=== PATIENT | female | born 1950 | race Caucasian/White ===

== ENCOUNTER → 2016-08-03 | Outpatient (REF) | payer MEDICARE, OTHER ==
[~2016-08-03] MED LIST: /ONDA4TA PO; /SUCR1TA PO; AMPI50CA PO; DIPH2.5L PO; FLAG500T PO; FLUC150T PO; K-TA10TA PO; METO5TAB2 PO; MYLI40DR PO; SLOWTAB PO; ZEGE40CA3 PO; lotrimin; metamucil PO
== END ==
LOC: M SFHCLERA 14:54
PROVIDERS: ATTEND Nurse Practitioner Family
DX: R68.89 Other general symptoms and signs (principal)

== ENCOUNTER → 2016-10-09 | Outpatient (CLI) | payer MEDICARE, OTHER ==
[2016-10-09 13:49] LABS: BASO % 0.7 % (0.0-1.0); EOS # 0.1 K/mm3 (0.0-0.50); EOS % 2.6 % (0.0-3.0); LYMPH # 1.2 K/mm3 (1.5-4.5); LYMPH % 26.9 % (24.0-44.0); MEAN CORPUSCULAR HEMOGLOBIN 29.6 pg (27.0-33.0); MEAN CORPUSCULAR HGB CONC 32.2 g/dl (32.0-36.5); MONO # 0.2 K/mm3 (0.0-0.8); MONO % 5.2 % (0.0-5.0); NEUTROPHILS # 2.7 K/mm3 (1.8-7.7); NEUTROPHILS % 62.9 % (36.0-66.0); RED CELL DISTRIBUTION WIDTH 13.1 % (11.5-14.5); WHITE BLOOD COUNT 4.3 K/mm3 (4.0-10.0)
[2016-10-09 14:22] LABS: ALBUMIN 3.6 GM/DL (3.2-5.2); ALKALINE PHOSPHATASE 75 U/L (45-117); ALT/SGPT 12 U/L (12-78); ANION GAP 8 MEQ/L (8-16); AST/SGOT 17 U/L (15-37); BILIRUBIN,TOTAL 0.4 MG/DL (0.2-1.0); BLOOD UREA NITROGEN 18 MG/DL (7-18); CALCIUM LEVEL 8.9 MG/DL (8.8-10.2); CARBON DIOXIDE LEVEL 28 MEQ/L (21-32); CHLORIDE LEVEL 105 MEQ/L (98-107); CREATININE FOR GFR 0.56 MG/DL (0.55-1.02); FERRITIN 69 NG/ML (8-252); GLOMERULAR FILTRATION RATE > 60.0 (>45); GLUCOSE, FASTING 89 MG/DL (80-110); PERCENT SATURATION 36.2 % (13.2-37.4); POTASSIUM SERUM 4.1 MEQ/L (3.5-5.1); SODIUM LEVEL 141 MEQ/L (136-145); TOTAL IRON BINDING CAPACITY 318 UG/DL (250-450); TOTAL PROTEIN 6.6 GM/DL (6.4-8.2)
[2016-10-09 14:40] LABS: VITAMIN B12 LEVEL 973 PG/ML (247-911)
[2016-10-10 10:12] LABS: CARCINOEMBRYONIC ANTIGEN < 0.5 NG/ML (<2.5)
== END ==
LOC: M LAB 12:05
PROVIDERS: ATTEND Internal Medicine
DX: C20 Malignant neoplasm of rectum (principal)

== ENCOUNTER → 2017-06-21 | Outpatient (REF) | payer MEDICARE, OTHER ==
[2017-06-21 19:11] LABS: BACTERIA, URINE SMALL AMOUNT; HYALINE CAST, URINE NONE SEEN /lpf (0-1); SQUAMOUS EPITHELIAL CELL URINE MOD AMOUNT /hpf (SMALL AMT)
[2017-06-21 19:12] LABS: CALCIUM OXALATE CRYSTALS,URINE SMALL AMOUNT /hpf; MICROSCOPIC EXAM PERFORMED; MUCUS, URINE SMALL AMOUNT (NEGATIVE)
== END ==
LOC: M SMT 17:44
DX: N39.0 Urinary tract infection, site not specified (principal)
CPT/HCPCS: 81015

== ENCOUNTER → 2017-07-02 | Outpatient (REF) | payer MEDICARE, OTHER | LOC: M SMT 16:22 | DX: N39.0 Urinary tract infection, site not specified (principal) | CPT/HCPCS: 87086 ==

== ENCOUNTER → 2017-07-17 | Outpatient (REF) | payer MEDICARE, OTHER | LOC: M LABSMT 09:54 | DX: N39.0 Urinary tract infection, site not specified (principal) | CPT/HCPCS: 87088; 87186 ==

== ENCOUNTER → 2018-12-02 | Outpatient (CLI) | payer MEDICARE, OTHER ==
[~2018-12-02] MED LIST changes: -/ONDA4TA PO; -/SUCR1TA PO; +AMPI500C9 PO; -AMPI50CA PO; +ONDA-1 PO; +SUCR1TAB56 PO
[2018-12-02 12:14] LABS: BASO % 0.6 % (0.0-1.0); EOS # 0.1 10^3/uL (0.0-0.50); HEMATOCRIT 36.1 % (36.0-47.0); LYMPH # 1.5 10^3/uL (1.5-4.5); LYMPH % 30.1 % (24.0-44.0); MEAN CORPUSCULAR HEMOGLOBIN 30.6 pg (27.0-33.0); MEAN CORPUSCULAR HGB CONC 33.2 g/dl (32.0-36.5); MEAN CORPUSCULAR VOLUME 92.1 fl (80.0-96.0); MONO # 0.5 10^3/uL (0.0-0.8); MONO % 9.1 % (0.0-5.0); NEUTROPHILS # 2.9 10^3/uL (1.8-7.7); PLATELET COUNT, AUTOMATED 228 10^3/uL (150-450); RED BLOOD COUNT 3.92 10^6/uL (4.00-5.40); WHITE BLOOD COUNT 4.9 10^3/uL (4.0-10.0)
[2018-12-02 12:40] LABS: ALBUMIN 3.7 GM/DL (3.2-5.2); ALT/SGPT 9 U/L (12-78); BILIRUBIN,TOTAL 0.3 MG/DL (0.2-1.0); BLOOD UREA NITROGEN 16 MG/DL (7-18); CALCIUM LEVEL 8.9 MG/DL (8.8-10.2); CARBON DIOXIDE LEVEL 29 MEQ/L (21-32); CHLORIDE LEVEL 107 MEQ/L (98-107); CREATININE FOR GFR 0.59 MG/DL (0.55-1.30); FERRITIN 23 NG/ML (8-252); GLOMERULAR FILTRATION RATE > 60.0 (>39); GLUCOSE, FASTING 94 MG/DL (70-100); IRON (FE) 69 UG/DL (50-170); PERCENT SATURATION 22.8 % (13.2-45.0); POTASSIUM SERUM 3.8 MEQ/L (3.5-5.1); SODIUM LEVEL 142 MEQ/L (136-145); TOTAL IRON BINDING CAPACITY 303 UG/DL (250-450); TOTAL PROTEIN 6.7 GM/DL (6.4-8.2)
== END ==
LOC: M LAB 11:45
PROVIDERS: ATTEND Internal Medicine
DX: C20 Malignant neoplasm of rectum (principal); D50.9 Iron deficiency anemia, unspecified

== ENCOUNTER → 2019-06-12 | Outpatient (CLI) | payer MEDICARE, OTHER ==
[2019-06-12 16:00] LABS: BASO # 0.1 10^3/uL (0.0-0.2); BASO % 1.2 % (0.0-1.0); EOS # 0.2 10^3/uL (0.0-0.5); EOS % 2.9 % (0.0-3.0); HEMATOCRIT 37.8 % (36.0-47.0); HEMOGLOBIN 11.8 g/dl (12.0-15.5); LYMPH # 1.6 10^3/uL (1.5-5.0); LYMPH % 30.7 % (24.0-44.0); MEAN CORPUSCULAR HEMOGLOBIN 28.9 pg (27.0-33.0); MEAN CORPUSCULAR HGB CONC 31.2 g/dl (32.0-36.5); MEAN CORPUSCULAR VOLUME 92.4 fl (80.0-96.0); MONO # 0.5 10^3/uL (0.0-0.8); MONO % 9.2 % (0.0-5.0); NEUTROPHILS # 2.9 10^3/uL (1.5-8.5); NEUTROPHILS % 55.8 % (36.0-66.0); PLATELET COUNT, AUTOMATED 242 10^3/uL (150-450); RED BLOOD COUNT 4.09 10^6/uL (4.00-5.40); WHITE BLOOD COUNT 5.1 10^3/uL (4.0-10.0)
[2019-06-12 16:28] LABS: ALBUMIN 3.6 GM/DL (3.2-5.2); ALT/SGPT 9 U/L (12-78); BILIRUBIN,TOTAL 0.3 MG/DL (0.2-1.0); BLOOD UREA NITROGEN 17 MG/DL (7-18); CALCIUM LEVEL 9.2 MG/DL (8.8-10.2); CARBON DIOXIDE LEVEL 29 MEQ/L (21-32); CHLORIDE LEVEL 107 MEQ/L (98-107); CREATININE FOR GFR 0.65 MG/DL (0.55-1.30); FERRITIN 7 NG/ML (8-252); GLOMERULAR FILTRATION RATE > 60.0 (>39); GLUCOSE, FASTING 79 MG/DL (70-100); SODIUM LEVEL 142 MEQ/L (136-145); TOTAL PROTEIN 6.9 GM/DL (6.4-8.2)
== END ==
LOC: M LAB 15:23
PROVIDERS: ATTEND Internal Medicine
DX: C20 Malignant neoplasm of rectum (principal); D50.9 Iron deficiency anemia, unspecified

== ENCOUNTER → 2020-02-04 | Outpatient (CLI) | payer MEDICARE, OTHER | LOC: M LABSMTC 09:34 | PROVIDERS: ATTEND Orthopaedic Surgery | DX: Z03.818 Encounter for observation for suspected exposure to other biological agents ruled out (principal); Z11.59 Encounter for screening for other viral diseases | CPT/HCPCS: C9803; U0003 ==

== ENCOUNTER 2020-07-13 13:07 | Emergency (ER) | payer MEDICARE, OTHER ==
[~2020-07-13] VITALS: Ht 165.1 cm; Wt 76.8 kg
[2020-07-13] MEDS ORDERED: FAMO1TAB11 (13:25)
[2020-07-13] MEDS ORDERED: SUCR1TAB56 (13:25)
[2020-07-13] MEDS ORDERED: GI COCKTAIL 50ML BTL(HYOSCYAMINE/MAALOX/LIDOCAINE VISCOUS)(1:3:1) PO ONE (13:45)
[2020-07-13] MEDS ORDERED: PANTOPRAZOLE 40MG VIAL (C9113 PER 1) IV ONE (13:45)
[2020-07-13 13:46] LABS: BASO % 0.4 % (0.0-1.0); EOS % 0.6 % (0.0-3.0); HEMATOCRIT 40.6 % (36.0-47.0); HEMOGLOBIN 13.5 g/dl (12.0-15.5); LYMPH # 0.9 10^3/uL (1.5-5.0); LYMPH % 13.2 % (24.0-44.0); MEAN CORPUSCULAR HEMOGLOBIN 29.9 pg (27.0-33.0); MEAN CORPUSCULAR HGB CONC 33.3 g/dl (32.0-36.5); MEAN CORPUSCULAR VOLUME 89.8 fl (80.0-96.0); MONO # 0.5 10^3/uL (0.0-0.8); MONO % 6.7 % (0.0-5.0); NEUTROPHILS # 5.6 10^3/uL (1.5-8.5); NEUTROPHILS % 78.7 % (36.0-66.0); PLATELET COUNT, AUTOMATED 234 10^3/uL (150-450); RED BLOOD COUNT 4.52 10^6/uL (4.00-5.40); WHITE BLOOD COUNT 7.1 10^3/uL (4.0-10.0)
--- NOTE | 2020-07-13 13:46 | REP ---
INDICATION: CHEST PAIN COMPARISON: 10/12/2011 TECHNIQUE: Portable AP view of the chest FINDINGS: The mediastinum and cardiac silhouette are stable and within normal limits for portable technique. The lung nicolas are clear without acute consolidation, effusion, or pneumothorax. Skeletal structures are intact. IMPRESSION: No acute cardiopulmonary process appreciated. <Electronically signed by Pierre Zuñiga > 07/13/20 [id number]
[2020-07-13 14:20] LABS: ALBUMIN 3.9 GM/DL (3.2-5.2); ALT/SGPT 11 U/L (12-78); BILIRUBIN,DIRECT 0.2 MG/DL (0.0-0.2); BILIRUBIN,TOTAL 0.4 MG/DL (0.2-1.0); BLOOD UREA NITROGEN 17 MG/DL (7-18); CALCIUM LEVEL 9.3 MG/DL (8.8-10.2); CARBON DIOXIDE LEVEL 28 MEQ/L (21-32); CHLORIDE LEVEL 102 MEQ/L (98-107); CK-MB VALUE MASS < 1.0 NG/ML (<3.6); CPK CREATINE PHOSPHOKINASE 36 U/L (26-192); CREATININE FOR GFR 0.53 MG/DL (0.55-1.30); GLOMERULAR FILTRATION RATE > 60.0 (>39); GLUCOSE, FASTING 91 MG/DL (70-100); LIPASE 84 U/L (73-393); MB/CK RELATIVE INDEX 2.78 (< OR =4); SODIUM LEVEL 138 MEQ/L (136-145); TROPONIN I < 0.02 NG/ML (< 0.10)
[2020-07-13 15:00] VITALS: BP 121/66
[2020-07-13] MEDS ORDERED: MYLA1SUS PO (15:10)
[2020-07-13] MEDS ORDERED: LIDO2SOL17 PO (15:10)
--- NOTE | 2020-07-13 16:32 | ECGEPIP ---
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
== END 2020-07-13 15:25 | disposition home or self-care (01) ==
LOC: M ED 13:07
DX: K29.70 Gastritis, unspecified, without bleeding (principal); K44.9 Diaphragmatic hernia without obstruction or gangrene; Z98.84 Bariatric surgery status; Z79.899 Other long term (current) drug therapy; Z88.1 Allergy status to other antibiotic agents; Z88.2 Allergy status to sulfonamides
CPT/HCPCS: 71045; 80048; 80076; 82550; 82553; 83690; 84443; 84484; 85025; 93005; 96374; 99284; C9113

== ENCOUNTER → 2020-07-31 | Outpatient (CLI) | payer MEDICARE, OTHER ==
[~2020-07-31] MED LIST changes: +B-122500 PO; +FAMO1TAB11 PO; +LIDO2SOL17 PO; +LIDO2SOL9 PO; +MYLA1SUS PO
== END ==
LOC: M LABSMTC 09:43
PROVIDERS: ATTEND Anesthesiology
DX: Z01.812 Encounter for preprocedural laboratory examination (principal); Z20.822 Contact with and (suspected) exposure to COVID-19

== ENCOUNTER 2020-08-05 10:31 | Day surgery (SDC) | payer MEDICARE, OTHER ==
[~2020-08-05] VITALS: Ht 165.1 cm; Wt 73.9 kg
[~2020-08-05 10:31] MED LIST changes: +NS 1,000 ML IV ONE
--- OUTSIDE RECORDS SUMMARY | 2020-08-05 10:38 | CCD | Continuity of Care Document ---
Author Author Elo WOOD [facility] Organization Unknown Address [address] [facility] [place] [address] Phone [phone] Problems Active Problems Provider Date Myalgia & Myositis Unspecified Jorge Wood RPA Onset: 12/30/2007 Irritable bowel syndrome Jorge Wood RPA Onset: 12/29 Gastroesophageal reflux disease Jorge Wood RPA Onset : 03/16/2008 Vitamin D deficiency Jorge Wood RPA Onset: Bariatric Surgery Status Jroge Wood RPA Onset: 03/28 Anemia Jorge Wood RPA Onset: 12/28/2010 Note: Dr. Banuelos Thrombocytopenic disorder Jorge Wood RPA Onset: 12/10 Note: Dr. Banuelos. Adenocarcinoma of rectum Jorge Wood RPA Onset: 08/26 Note: Dx via ultrasound and flexible sig moidoscopy 08/05/15 Dr. Gomez Heart murmur Jorge Wood RPA Onset: 11/06/2018 Social History Type Date Description Comments Sex Unknown Tobacco Use Start: Unknown Former cigarette smo ker: smoked for 20 years, quit 1984. ETOH Use Alcohol use: Socially. Tobacco Use Start: Unknown End: Unknown Patient is a former smoker Allergies, Adverse Reactions, Alerts Active Allergies Reaction Severity Comments Date Erythromycin 03/16/2008 Sulfa Drugs Hives 06/22/2008 Doxycycline 03/14/2017 Medications Active Medications SIG Qnty Indications Ordering Provide r Date Famotidine 20mg Tablets 1 by mouth bid 60tabs Brayan Farr D.O., FAAFP 04/19/2020 Centrum Silver 50+Women 50+Women T ablets 1 Daily Brayan Farr D.O., FAAFP Shingrix 50mcg Suspension Rec injection 1units [facility] 08/21/2017 Prevnar 13 Suspension as directed .500ml Brayan Farr D.O., FAAFP 05/08/2017 Omeprazole-Sodium Bicarbonate 40-1100mg Capsules 1 by mouth every day Needs Appointment 30caps Brayan Farr D.O., FAAFP 02/05/2017 Vitamin D 1000Unit Tablets 1 po qd OTC Brayan Farr D.O., FAAFP 10/14/2013 Vitamin B-12 100mcg Tablets 1 by mouth every day otc Unknown Biotin 1mg Capsules 1 po tavia y Unknown Methenamine Hippurate 1gm Tablets 1 Daily Unknown Docusate Sodium 100mg Capsules 1 by mouth daily for constipation Unknown 0 History Medications Diflucan 150mg Tablets one pill by mouth today followed by 1 in 1 week. 2tabs Brayan Farr D.O., [facility] 05/21/2020 - 06/04/2020 Medications Administered in Office Medication SIG Qnty Indications Ordering Provider Date Injection (SC)/(Im) Injection Jorge Wood RPA 03/21/2013 Immunizations CPT Code Status Date Vaccine Lot # 92262 Given 04/05/2020 Influenza Virus Vaccine, Quadrivalent, Slit Virus, Im Use 3Y & Up [id number] 49341 Given 04/25/2019 Influenza Virus Vaccine, Quadrivalent, Slit Virus, Im Use 3Y & Up [id number] 20674 Given 06/19/2018 Influenza Virus Vaccine, Quadrivalent, Slit Virus, Im Use 3Y & Up [id number] 02534 Given 05/08/2017 Influenza Virus Vaccine, Quadrivalent, Slit Virus, Im Use 3Y & Up [id number] 34852 Given 03/21/2016 Influenza Virus Vaccine, Quadrivalent, Slit Virus, Im Use 3Y & Up [id number] 06161 Given 03/31/2015 Influenza Vaccin e (Fluzone) 3Yrs Of Age Or Older Medicare Plans [id number] 12764 Given 04/08/2014 Influenza Vaccin e (Fluzone) 3Yrs Of Age Or Older Medicare Plans [id number] 81678 Given 03/21/2013 Influenza Virus Vac. Split Virus Individuals 3 Years And Above [id number] Vital Signs Date Vital Result Comment 05/21/2020 3:18pm BP Systolic 120 mmHg BP Diastolic 82 mmHg Body Temperature 98.5 F Heart Rate 76 /min Respiratory Rate 16 /min Height 66 inches 5'6" Weight 174.00 lb [place] Body Weight 130 lb BMI (Body Mass Index) 28.1 kg/m2 O2 % BldC Oximetry 97 % 04/19/2020 8:58am BP Systolic 102 mmHg BP Diastolic 62 mmHg Body Temperature 98.7 F Heart Rate 85 /min Respiratory Rate 16 /min Height 66 inches 5'6" Weight 180.00 lb [place] Body Weight 130 lb BMI (Body Mass Index) 29.0 kg/m2 O2 % BldC Oximetry 98 % Results Test Acquired Date Facility Test Result H/L Range Note CBC With Differential 07/13/2020 [facility] ([facility]) [phone] White Blood Count 7.1 10 Normal 4.0-10.0 Red Blood Count 4.52 10 Normal 4.00-5.40 Hemoglobin 13.5 g/dL Normal 12.0-15.5 Hematocrit 40.6 % Normal 36.0-47.0 Mean Corpuscular Volume 89.8 fl Normal 80.0-96.0 Mean Corpuscular Hemoglobin 29.9 pg Normal 27.0-33.0 Mean Corpuscular HGB Conc 33.3 g/dL Normal 32.0-36.5 Red Cell Distribution Width 14.0 % Normal 11.5-14.5 Platelet Count, Automated 234 10 Normal 150-450 Neutrophils % 78.7 % High 36.0-66.0 Lymph % 13.2 % Low 24.0-44.0 Kleberg % 6.7 % High 0.0-5.0 Eos % 0.6 % Normal 0.0-3.0 Baso % 0.4 % Normal 0.0-1.0 Immature Granulocyte % 0.4 % Normal 0-3.0 Nucleated Red Blood Cell % 0.0 % Normal 0-0 Neutrophils # 5.6 10 Normal 1.5-8.5 Lymph # 0.9 10 Low 1.5-5.0 Kleberg # 0.5 10 Normal 0.0-0.8 Eos # 0.0 10 Normal 0.0-0.5 Baso # 0.0 10 Normal 0.0-0.2 Cardiac Marker Panel 07/13/2020 [facility] ( Interface) [phone] CPK Creatine Phosphokinase 36 U/L Normal 26-19 2 CK-MB Value Mass < 1.0 NG/ML Normal <3.6 MB/CK Relative Index 2.78 Normal < Or =4 1 Troponin I < 0.02 NG/ML Normal < 0.10 2 Liver Profile 07/13/2020 [facility] (I nterface) [phone] Ast/Sgot 15 U/L Normal 7-37 Alt/SGPT 11 U/L Low 12-78 Alkaline Phosphatase 76 U/L Normal 45-117 Bilirubin,Total 0.4 mg/dL Normal 0.2-1.0 Bilirubin,Direct 0.2 mg/dL Normal 0.0-0.2 Total Protein 7.0 GM/DL Normal 6.4-8.2 Albumin 3.9 GM/DL Normal 3.2-5.2 Albumin/Globulin Ratio 1.3 Normal 1.2-2.2 Basic Metabolic Profile 07/13/2020 [facility] (Interface) [phone] Glucose, Fasting 91 mg/dL Normal 70-100 Blood Urea Nitrogen 17 mg/dL Normal 7-18 Creatinine For GFR 0.53 mg/dL Low 0.55-1.30 Glomerular Filtration Rate > 60.0 Normal >39 3 Sodium Level 138 mEq/L Normal 136-145 Potassium Serum 4.0 mEq/L Normal 3.5-5.1 Chloride Level 102 mEq/L Normal 98-107 Carbon Dioxide Level 28 mEq/L Normal 21-32 Anion Gap 8 mEq/L Normal 8-16 Calcium Level 9.3 mg/dL Normal 8.8-10.2 Laboratory test finding 07/13/2020 [facility] (Interface) [phone] Lipase 84 U/L Normal 73-393 Thyroid Stimulating Hormone 1.060 uIU/ML Normal 0.358-3.740 U/A DIP FPA 05/21/2020 [facility] Color Urine YELLOW Yellow Appearance CLEAR Clear Specific [place] 1.030 1.00-1.03 PH Urine 5.0 5.0-8.0 Glucose Urine NEG Negative Bilirubin Urine 1+ High Negative Ketones 1+ High Negative Blood Urine 1+ High Negative Protein Urine .2 High Negative Urobilinogen 2.0 EU/dl High 0.2-1.0 Nitrite NEG Negative Leukocytes NEG Negative Urine Culture, Routine 05/21/2020 [facility] [place] Urine Culture, Routine Final report Abnormal 4, 5 Result 1 Escherichia coli Abnormal 6 Antimicrobial Susceptibility See Comment: 7 CBC W/Diff 04/21/[address] [phone] WBC 5.5 K/mm3 4.0-10.0 RBC 4.28 M/mm3 4.00-5.50 HGB 12.6 gm/dL 12.0-16.0 HCT 39.0 % 36.0-48.8 MCV 91.1 fl 80-96 MCH 29.4 pg 27.0-31.0 MCHC 32.3 g/dL 32.0-36.0 RDW 12.8 % 10.0-14.5 PLT 286 K/mm3 172-450 MPV 9.3 fl 9.0-13.0 GR% 70.7 % 50-80.0 Ig% 0.2 % 0.0-0.2 Ly% 18.5 % Low 25.0-50.0 Mo% 7.3 % 2.0-10.0 Eo% 2.6 % 0-5.0 Ba% 0.7 % 0.0-2.0 GR# 3.9 K/mm3 2.0-8.00 Ig# 0.0 K/mm3 0.0-0.2 Ly# 1.0 K/mm3 1.0-5.0 Mo# 0.4 K/mm3 0.10-1.20 Eo# 0.1 K/mm3 0.0-0.5 Ba# 0.0 K/mm3 0.0-0.2 Complete Metabolic Profile 04/21/[address] [phone] - Glu 90 mg/dL 74-106 BUN 13 mg/dL 7-18 Cre 0.7 mg/dL 0.6-1.0 Na 143 mmol/L 136-145 K 4.4 mmol/L 3.5-5.1 CL 102 mmol/L 98-107 Co2 29 mmol/L 21-32 CA 9.6 mg/dL 8.5-10.1 Gap 12.0 mmol/L 5-12 GFR 82 mL/min 8 Ast 14 U/L Low 15-37 Alt 7 U/L Low 12-78 Alk 84 U/L 46-116 Tbili 0.4 mg/dL 0.2-1.0 TP 7.0 g/dL 6.4-8.2 Alb 3.6 gm/dL 3.4-5.0 Laboratory test finding 04/21/2020 [place] [phone] (315)- - Iron 75 g/dL 50-170 Tibc 236 g/dL Low 250-450 Vitamin D, 25-Hydroxy 25.5 ng/mL Low 30.0-100.0 9 Vitamin B12 617 pg/mL 232-1245 10 Ferritin 144 ng/mL 8-252 Cea 1.5 ng/mL 0.0-4.7 11 Laboratory test finding 04/19/2020 [facility] [place] Lipase 32 U/L 14-85 Amylase 54 U/L 31-110 CBC 04/19/2020 [facility]/Inhouse WBC 7.5 10E3/uL 4.1 - 10.9 12 RBC 4.30 10E6/uL 4.20 - 6.30 HGB 13.0 g/dL 12.0 - 18.0 HCT 39.5 % 37.0 - 51.0 MCV 91.9 fL 80.0 - 97.0 MCH 30.2 pg 26.0 - 32.0 MCHC 32.9 g/dL 31.0 - 36.0 PLT 315 10E3/uL 140 - 440 RDW-CV 13.2 % 11.5 - 14.5 Lym% 15.8 % 10.0 - 58.5 Neut% 75.6 % 37.0 - 92.0 MXD% 8.6 % 0.1 - 24.0 Lym# 1.2 10E3/uL 0.6 - 4.1 Neut# 5.7 % 2.0 - 7.8 MXD# 0.6 10E3/uL 0.0 - 1.8 MPV 9.5 fL 9.0 - 13.0 CMP 04/19/2020 [facility]Inhouse Glu 86 mg/dL 70 - 110 BUN 14 mg/dL 8 - 23 Creat 0.6 mg/dL 0.5 - 1.0 BUN/Creatinine Ratio 23.4 CALC Na 139 mmol/L 136 - 145 K 4.4 mmol/L 3.5 - 5.1 CL 100.0 mmol/L 98.0 - 107.0 Co2 23.4 mmol/L 22.0 - 29.0 CA 9.8 mg/dL 8.6 - 10.2 TP 6.1 g/dL Low 6.6 - 8.7 Alb 4.0 g/dL 3.4 - 4.8 A/G Ratio 1.9 CALC Globulin 2.1 CALC Alp 86.5 U/L 35 - 129 Alt (SGPT) 2 U/L 0 - 41 Ast (Sgot) 11 U/L 0 - 40 Tbili 0.25 mg/dL 0.0 - 1.2 Osmolality-Calculated 277.0 CALC Anion Gap 20 mmol/L eGFR 106 # Calc 13 eGFR Non-Afr. [place]ian 92 # Calc 14 Coronavirus 2019 Nasopharygeal 02/04/2020 [facility] ([facility]) [phone] Coronavirus 2019 Nasopharygeal This test was de <SEE N OTE> 15 CBC 02/02/2020 [facility]Inhouse WBC 5.5 10E3/uL 4.1 - 10.9 RBC 4.36 10E6/uL 4.20 - 6.30 HGB 13.5 g/dL 12.0 - 18.0 HCT 39.8 % 37.0 - 51.0 MCV 91.3 fL 80.0 - 97.0 MCH 31.0 pg 26.0 - 32.0 MCHC 33.9 g/dL 31.0 - 36.0 PLT 244 10E3/uL 140 - 440 RDW-CV 12.9 % 11.5 - 14.5 Lym% 22.2 % 10.0 - 58.5 Neut% 67.6 % 37.0 - 92.0 MXD% 10.2 % 0.1 - 24.0 Lym# 1.2 10E3/uL 0.6 - 4.1 Neut# 3.7 % 2.0 - 7.8 MXD# 0.6 10E3/uL 0.0 - 1.8 MPV 10.8 fL 9.0 - 13.0 CMP 02/02/2020 [facility]house Glu 146 mg/dL High 70 - 110 BUN 17 mg/dL 8 - 23 Creat 0.7 mg/dL 0.5 - 1.0 BUN/Creatinine Ratio 24.5 Calc Na 146 mmol/L High 136 - 145 K 3.6 mmol/L 3.5 - 5.1 CL 106.1 mmol/L 98.0 - 107.0 Co2 23.3 mmol/L 22.0 - 29.0 CA 9.6 mg/dL 8.6 - 10.2 TP 6.4 g/dL Low 6.6 - 8.7 Alb 4.5 g/dL 3.4 - 4.8 A/G Ratio 2.3 Calc Globulin 1.9 Calc Alp 80.8 U/L 35 - 129 Alt (SGPT) 4 U/L 0 - 41 Ast (Sgot) 15 U/L 0 - 40 Tbili 0.26 mg/dL 0.0 - 1.2 Osmolality-Calculated 294.0 Calc Anion Gap 20 mmol/L eGFR 101 # Calc 16 eGFR Non-Afr. [place] 87 # Calc 17 1 DIAGNOSIS CRITERIA MMB ng/ml Relative Index (RI) NON-AMI < or = 5 N/A LUIS ZONE > 5 < or = 4 AMI > 5 > 4 2 Troponin I Reference Interva l for [employer] LOCI: 99th Percentile= 0.00-0.045 ng/ml Risk Stratification: <= 0.10 ng/ml Decreased Risk for Adverse Clinical Events. 0.10-1.50 ng/ml Increased Risk for Adv erse Clinical Events. Evaluation of additional criterion and/or repeat testing in 2-6 hours is suggested to rule out myocardial damage. >= 1.50 ng/ml Indicative of Myocardial Injury. 3 Units are mL/min/1.73 m2 Chronic Kidney Disease Staging per NKF: Stage I & II GFR >=60 Normal to Mildly Decreased Stage III GFR 30-59 Moderately Decreased Stage IV GFR 15-29 Severely Decreased Stage V GFR <15 Very Little GFR Left ESRD GFR <15 on LIFT MECHANIC 4 SRC:URINE 5 Source of Specimen: URINE 6 Escherichia coli Source of Specimen: URINE 10,000-25,000 colony forming units per m L Cefazolin <=4 ug/mL Cefazolin with an JEREMIAH <=16 predicts susceptibility to the oral agents cefaclor, cefdinir, cefpodoxime, cefprozil, cefuroxime, cephalexin, and loracarbef when used for therapy of uncomplicated urinary tract infections due to E. coli, Klebsiella pneumoniae, and Proteus mirabilis. 7 Source of Specimen: URINE S = Susceptible; I = Intermediate; R = Resistant P = Positive; N = Negative MICS are expressed in micrograms per mL Antibiotic RSLT#1 RSLT#2 RSLT#3 RSLT#4 Amoxicillin/Clavulanic Acid S Ampicillin S Cefepime S Ceftriaxone S Cefuroxime S Ciprofloxacin S Ertapenem S Gentamicin S Imipenem S Levofloxacin S Meropenem S Nitrofurantoin S Piperacillin/Tazobactam S Tetracycline R Tobramycin S Trimethoprim/Sulfa S 8 GFR IS CALCULATED IN mL/min/ 1.73m2 NORMAL FUNCTION: >90 MILDLY DECREASED: 60-89 MILDY TO MODERATELY DECREASED: 45-59 MODERATELY TO SEVERELY DECREASED: 30-44 SEVERELY DECREASED: 15-29 RENAL FAILURE: <15 9 Vitamin D deficiency has bee n defined by the [place] of [employer] and an Endocrine Society practice guideline as a level of serum 25-OH vitamin D less than 20 ng/mL (1,2). The Endocrine Society went on to further define vitamin D insufficiency as a level between 21 and 29 ng/mL (2). 1. IOM ([place] of [employer]). 2010. Di etary reference intakes for calcium and D. [place]: The National Academies Press. 2. Hanna MF, [place], Joao norris PISANO, et al. Evaluation, treatment, and prevention of vitamin D deficiency: an Endocrine Society clinical practice guideline. JCEM. 2010; 96(7):1911-30. 10 Performed at: [facility] [employer] [id number] Cash Management Coordinator: Lelo Mtz MD, Phone: [phone] 11 Nonsmokers <3.9 Smokers <5.6 [employer] Electrochemiluminescence Immunoassay (ECLIA) Values obtained with different assay methods or kits cannot be used interchangeably. Results cannot be interpreted as absolute evidence of the presence or absence of malignant disease. Performed at: [facility] [employer] [id number] Cash Management Coordinator: Lelo Mtz MD, Phone: [phone] 12 NORMAL RANGES Age WBC RBC HGB HCT MCV PLT Adult M 4.1-10.9 4.20-6.30 12.0-18.0 37.0-51.0 80-97 140-440 Adult F 4.1-10.9 4.04-5.48 12.0-18.0 37.0-51.0 80-97 140-440 0 -1 Yr 5.0-20.0 3.9-5.9 15-18 MV: 44 MV: 91 MV: 277 2-9 Yr. 6.0-17.0 3.8-5.4 11-13 MV: 37 MV: 78 MV: 300 10 Yrs. 5.0-13.0 3.8-5.4 12-15 MV: 39 MV: 80 MV: 250 NOTE: * FOR ADULT BLACK MALES AND FEMALES, NORMAL WBC IS 2.9-7.7 K/ML * FOR ADULT BLACK MALES AND FEMALES, NORMAL RBC,HGB, AND HCT IS 5% LESS SOURCE FOR DATA: [employer] 1800 OPERATION MANUAL( AUTOMATED BLOOD COUNTS AND DIFF.) APPENDIX B-3 CHRONIC KIDNEY DISEASE STAGING PER NKF: MALE GFR INTERPRETATION: 20-49 YRS: >60 mL/min Normal 50-59 YRS: >56 mL/min Normal 60-69 YRS: >49 mL/min Normal 70-79 YRS: >42 mL/min Normal 80 and above >35 mL/min Normal FEMALE GRF INTERPRETATION: 20-39 YRS: >60 mL/min Normal 40-49 YRS: >58 mL/min Normal 50-59 YRS: >51 mL/min Normal 60-69 YRS: >45 mL/min Normal 70-79 YRS: >39 mL/min Normal 80 and above >32 mL/min Normal 13 CKD-EPI 14 CKD-EPI 15 This test was developed and its performance characteristics determined by [employer]. This test has not been FDA cleared or approved. This test has been authorized by FDA under an Emergency Use Authorization (EUA). This test is only authorized for the duration of time the declaration that circumstances exist justifying the authorization of the emergency use of in vitro diagnostic tests for detection of SARS-CoV-2 virus and/or diagnosis of COVID-19 infection under section 564(b)(1) of the Act, 21 U.S.C. 360bbb-3(b)(1), unless the authorization is terminated or revoked sooner. When diagnostic testing is negative, the possibility of a false negative result should be considered in the context of a patient's recent exposures and the presence of clinical signs and symptoms consistent with COVID-19. An individual without symptoms of COVID-19 and who is not shedding SARS-CoV-2 virus would expect to have a negative (not detected) result in this assay. Performed at: [address] [id number] Cash Management Coordinator: Lelo Mtz MD, Phone: [phone] Not Detected 16 CKD-EPI 17 CKD-EPI Procedures Date Code Description Status 02/02/2020 34618 Electrocardiogram Complete Compl eted Medical Devices Description No Information Available Encounters Type Date Location Provider Dx Diagnosis Office Visit 05/21/2020 3:30p [facility] Jorge Wood, RP A N39.0 Urinary tract infection, site not specified R14.3 Flatulence R10.13 Epigastric pain R11.0 Nausea Office Visit 04/19/2020 8:45a [facility] Jorge Wood, RP A R53.83 Other fatigue R10.9 Unspecified abdominal pain R11.2 Nausea with vomiting, unspec ified R35.0 Frequency of micturition R39.15 Urgency of urination Office Visit 02/02/2020 2:20p [facility] Jorge Wood, RP A Z01.818 Encounter for other preprocedural examination M65.341 Trigger finger, right ring f mateo R01.1 Cardiac murmur, unspecified K58.0 Irritable bowel syndrome wit h diarrhea D64.9 Anemia, unspecified D69.6 Thrombocytopenia, unspecifie d K21.9 Gastro-esophageal reflux dis ease without esophagitis E55.9 Vitamin D deficiency, unspec ified Z98.84 Bariatric surgery status Assessments Date Code Description Provider 05/21/2020 N39.0 Urinary tract infection, site no t specified Jorge Wood, RPA 05/21/2020 R14.3 Flatulence Jorge Wood, RPA 05/21/2020 R10.13 Epigastric pain Jorge Wood, RPA 05/21/2020 R11.0 Nausea Jorge Wood, RPA 04/19/2020 R53.83 Other fatigue Jorge Wood, RPA 04/19/2020 R10.9 Unspecified abdominal pain Jorge Jamison, RPA 04/19/2020 R11.2 Nausea with vomiting, Jorge Soliman, RPA 04/19/2020 R35.0 Frequency of micturition Jorge Wood, RPA 04/19/2020 R39.15 Urgency of urination Jeremiah Wood, [facility] 04/05/2020 Z23 Encounter for immunization Constantin Salmeron M.D. 04/05/2020 Z23 Encounter for immunization Nurse s Schedule 02/02/2020 Z01.818 Encounter for other preprocedura l examination Jorge Wood, RPA 02/02/2020 M65.341 Trigger finger, right ring finge r Jorge Wood, RPA 02/02/2020 R01.1 Cardiac murmur, unspecified Jorge Mackay, RPA 02/02/2020 K58.0 Irritable bowel syndrome with di arrhea Jorge Wood, RPA 02/02/2020 D64.9 Anemia, unspecified Mj Wood, RPA 02/02/2020 D69.6 Thrombocytopenia, unspecified Jorge Ceja, RPA 02/02/2020 K21.9 Gastro-esophageal reflux disease without esophagitis Jorge Wood, RPA 02/02/2020 E55.9 Vitamin D deficiency, unspecifie d Jorge Wood, RPA 02/02/2020 Z98.84 Bariatric surgery status Jorge Wood, RPA Plan of Treatment No Information Available Functional Status Description No Information Available Mental Status Description No Information Available Referrals Refer to Reason for Referral Status Appt Date Constantin Banuelos MD Abdominal pain x 2 mos--hx Gastric by pass with recent UGI demonstrating a hiatal hernia and two enlarging diverticula in the pouch. Sent [address] [place] [place] [address] [phone]
--- OUTSIDE RECORDS SUMMARY | 2020-08-05 10:38 | CCD | Continuity of Care Document ---
Author Author Elo WOOD [facility] Organization Unknown Address 3 [facility]. [address] [place] [address] Phone [phone] Problems Active Problems Provider Date Myalgia & Myositis Unspecified Jorge Wood RPA Onset: 12/30/2007 Irritable bowel syndrome Jorge Wood RPA Onset: 12/29 Gastroesophageal reflux disease Jorge Wood RPA Onset : 03/16/2008 Vitamin D deficiency Jorge Wood RPA Onset: Bariatric Surgery Status Jorge Wood RPA Onset: 03/28 Anemia Jorge Wood [...] SIG Qnty Indications Ordering Provide r Date Diflucan 150mg Tablets one pill by mouth today followed by 1 in 1 week. 2tabs Brayan Farr DIliana, [facility] 05/21/2020 Famotidine 20mg Tablets 1 by mouth bid 60tabs Brayan Farr D.O., FAAFP 04/19/2020 Centrum Silver 50+Women 50+Women T ablets 1 Daily Brayan Farr D.O., FAAFP Shingrix 50mcg Suspension Rec injection 1units Brayan Farr D.O., FAAFP 08/21/2017 Prevnar 13 Suspension as directed .500ml Brayan Farr D.O., FAAFP 05/08/2017 Omeprazole-Sodium Bicarbonate 40-1100mg Capsules 1 by mouth every day Needs Appointment 30caps Brayan Farr D.O., FAAFP 02/05/2017 Vitamin D 1000Unit Tablets 1 po qd OTC [facility] 10/14/2013 Vitamin B-12 100mcg Tablets 1 by mouth every day otc Unknown Biotin 1mg Capsules 1 po tavia y Unknown Methenamine Hippurate 1gm Tablets 1 Daily Unknown Docusate Sodium 100mg Capsules 1 by mouth daily for constipation Unknown 0 Medications Administered in Office Medication SIG Qnty Indications Ordering Provider Date Injection (SC)/(Im) Injection Jorge Wood RPA 03/21/2013 Immunizations CPT Code Status Date Vaccine Lot # 13451 Given 04/05/2020 Influenza Virus Vaccine, Quadrivalent, Slit Virus, Im Use 3Y & Up [id number] 47341 Given 04/25/2019 Influenza Virus Vaccine, Quadrivalent, Slit Virus, Im Use 3Y & Up [id number] 22650 Given 06/19/2018 Influenza Virus Vaccine, Quadrivalent, Slit Virus, Im Use 3Y & Up [id number] 47249 Given 05/08/2017 Influenza Virus Vaccine, Quadrivalent, Slit Virus, Im Use 3Y & Up [id number] 38522 Given 03/21/2016 Influenza Virus Vaccine, Quadrivalent, Slit Virus, Im Use 3Y & Up [id number] 50817 Given 03/31/2015 Influenza Vaccin e (Fluzone) 3Yrs Of Age Or Older Medicare Plans [id number] 65917 Given 04/08/2014 Influenza Vaccin e (Fluzone) 3Yrs Of Age Or Older Medicare Plans [id number] 48384 Given 03/21/2013 Influenza Virus Vac. Split Virus Individuals 3 Years And Above [id number] Vital Signs Date Vital Result Comment 05/21/2020 3:18pm BP Systolic 120 mmHg BP Diastolic 82 mmHg Body Temperature 98.5 F Heart Rate 76 /min Respiratory Rate 16 /min Height 66 inches 5'6" Weight 174.00 lb [place] Body Weight 130 lb BMI (Body Mass Index) 28.1 kg/m2 O2 % BldC Oximetry 97 % 04/19/2020 8:58am BP Systolic 102 mmHg BP Diastolic 62 mmHg Body Temperature 98.7 F Heart Rate 85 /min Respiratory Rate 16 /min Height 66 inches 5'6" Weight 180.00 lb [place] Body Weight 130 lb BMI (Body Mass Index) 29.0 kg/m2 O2 % BldC Oximetry 98 % Results Test Acquired Date Facility Test Result H/L Range Note Urine Culture, Routine 05/21/2020 [facility] [place] Urine Culture, Routine Final report Abnormal 1, 2 Result 1 Escherichia coli Abnormal 3 Antimicrobial Susceptibility See Comment: 4 U/A DIP FPA 05/21/2020 [facility] Asso ciates Color Urine YELLOW Yellow Appearance CLEAR Clear Specific [place] 1.030 1.00-1.03 PH Urine 5.0 5.0-8.0 Glucose Urine NEG Negative Bilirubin Urine 1+ High Negative Ketones 1+ High Negative Blood Urine 1+ High Negative Protein Urine .2 High Negative Urobilinogen 2.0 EU/dl High 0.2-1.0 Nitrite NEG Negative Leukocytes NEG Negative CBC W/Diff 04/21/[address] [address] (875)- - WBC 5.5 K/mm3 4.0-10.0 RBC 4.28 [...] 0.0 K/mm3 0.0-0.2 Complete Metabolic Profile 04/21/[address] [address] (018)- - Glu 90 mg/dL 74-106 BUN 13 mg/dL 7-18 Cre 0.7 mg/dL 0.6-1.0 Na 143 mmol/L 136-145 K 4.4 mmol/L 3.5-5.1 CL 102 mmol/L 98-107 Co2 29 mmol/L 21-32 CA 9.6 mg/dL 8.5-10.1 Gap 12.0 mmol/L 5-12 GFR 82 mL/min 5 Ast 14 U/L Low 15-37 Alt 7 U/L Low 12-78 Alk 84 U/L 46-116 Tbili 0.4 mg/dL 0.2-1.0 TP 7.0 g/dL 6.4-8.2 Alb 3.6 gm/dL 3.4-5.0 Laboratory test finding 04/21/[address] [address] (221)- - Iron 75 g/dL 50-170 Tibc 236 g/dL Low 250-450 Vitamin D, 25-Hydroxy 25.5 ng/mL Low 30.0-100.0 6 Vitamin B12 617 pg/mL 232-1245 7 Ferritin 144 ng/mL 8-252 Cea 1.5 ng/mL 0.0-4.7 8 Laboratory test finding 04/19/2020 [facility] [place] Lipase 32 U/L 14-85 Amylase 54 U/L 31-110 CBC 04/19/2020 FPA/Inhouse WBC 7.5 10E3/uL 4.1 - 10.9 9 RBC 4.30 10E6/uL 4.20 - 6.30 HGB [...] Gap 20 mmol/L eGFR 106 # Calc 10 eGFR Non-Afr. Fijian 92 # Calc 11 Coronavirus 2019 Nasopharygeal 02/04/2020 [facility] ([facility]) [phone] Coronavirus 2019 Nasopharygeal This test was de <SEE N OTE> 12 CBC 02/02/2020 FPA/Inhouse WBC 5.5 10E3/uL 4.1 [...] Gap 20 mmol/L eGFR 101 # Calc 13 eGFR Non-Afr. Fijian 87 # Calc 14 1 SRC:URINE 2 Source of Specimen: URINE 3 Escherichia coli Source of Specimen: URINE 10,000-25,000 colony forming units per m L Cefazolin <=4 ug/mL Cefazolin with an JEREMIAH <=16 predicts susceptibility to the oral agents cefaclor, cefdinir, cefpodoxime, cefprozil, cefuroxime, cephalexin, and loracarbef when used for therapy of uncomplicated urinary tract infections due to E. coli, Klebsiella pneumoniae, and Proteus mirabilis. 4 Source of Specimen: URINE S = Susceptible; [...] S Tetracycline R Tobramycin S Trimethoprim/Sulfa S 5 GFR IS CALCULATED IN mL/min/ 1.73m2 NORMAL FUNCTION: >90 MILDLY DECREASED: 60-89 MILDY TO MODERATELY DECREASED: 45-59 MODERATELY TO SEVERELY DECREASED: 30-44 SEVERELY DECREASED: 15-29 RENAL FAILURE: <15 6 Vitamin D deficiency has bee n defined by the [place] of Medicine and an Endocrine Society practice guideline as a level of serum 25-OH vitamin D less than 20 ng/mL (1,2). The Endocrine Society went on to further define vitamin D insufficiency as a level between 21 and 29 ng/mL (2). 1. IOM ([place] of Medicine). 2010. Di etary reference intakes for calcium and D. [place]: The National Academies Press. 2. Hanna MF, [place], Ailyn-Ran norris PISANO, et al. Evaluation, treatment, and prevention of vitamin D deficiency: an Endocrine Society clinical practice guideline. JCEM. 2010; 96(7):1911-30. 7 Performed at: [facility] [address] [id number] Pre K Lead Teacher: Lelo Mtz MD, Phone: [phone] 8 Nonsmokers <3.9 Smokers <5.6 [facility] Electrochemiluminescence Immunoassay (ECLIA) Values obtained with different assay methods or kits cannot be used interchangeably. Results cannot be interpreted as absolute evidence of the presence or absence of malignant disease. Performed at: [facility] [address] [id number] Pre K Lead Teacher: Lelo Mtz MD, Phone: [phone] 9 NORMAL RANGES Age WBC RBC HGB HCT [...] HCT IS 5% LESS SOURCE FOR DATA: [employer] DYN 1800 OPERATION MANUAL( AUTOMATED BLOOD COUNTS AND [...] Normal 80 and above >32 mL/min Normal 10 CKD-EPI 11 CKD-EPI 12 This test was developed and its performance characteristics determined by [employer]. This test has not been FDA cleared [...] detected) result in this assay. Performed at: [address] [id number] Pre K Lead Teacher: Lelo Mtz MD, Phone: [phone] Not Detected 13 CKD-EPI 14 CKD-EPI Procedures Date Code Description Status 02/02/2020 51089 Electrocardiogram Complete Compl eted Medical Devices Description No Information Available Encounters Type Date Location Provider Dx Diagnosis Office Visit 05/21/2020 3:30p [facility] Jorge Wood, RP A N39.0 Urinary tract infection, site not specified R14.3 Flatulence R10.13 Epigastric pain R11.0 Nausea Office Visit 04/19/2020 8:45a [facility] Jorge Wood, RP A R53.83 Other fatigue R10.9 Unspecified abdominal pain R11.2 Nausea with vomiting, unspec ified R35.0 Frequency of micturition R39.15 Urgency of urination Office Visit 02/02/2020 2:20p [facility] Jorge Wood, RP A Z01.818 Encounter for [...] 04/19/2020 R39.15 Urgency of urination Jeremiah Wood, [facility] 04/05/2020 Z23 Encounter for immunization Constantin Salmeron [...] Vitamin D deficiency, unspecifie d Jorge Wood, ART 02/02/2020 Z98.84 Bariatric surgery status Jorge Wood, RPA Plan of Treatment No Information Available Functional Status Description No Information Available Mental Status Description No Information Available Referrals Description No Information Available
--- OUTSIDE RECORDS SUMMARY | 2020-08-05 10:38 | CCD | Continuity of Care Document ---
Author Author Elo MUÑOZ MD Organization Unknown Address [address] [facility] [address] [place] [address] Phone [phone] Care Team Providers Care Bisque Cleaner Name Role Phone Constantin Banuelos M.D. [facility] [phone] Jorge Wood [facility] [phone] Problems Description No Information Available Social History Type Date Description Comments Sex Unknown ETOH Use Denies alcohol use Recreational Drug Use Denies Drug Use Tobacco Use Start: Unknown End: Unknown Patient is a former smoker 1 PPD X15 YRS Tobacco Use Start: Unknown Quit 1985 Allergies, Adverse Reactions, Alerts Active Allergies Reaction Severity Comments Date Sulfa 07/12/2020 Erythromycin / Sulfisoxazole 07/12/2020 Medications Active Medications SIG Qnty Indications Ordering Provide r Date Carafate 1gm Tablets 1 tab by mouth twice a day 60tabs Yahir Muñoz JR, MD 07/12/2020 Famotidine 20mg Tablets 1 by mouth twice a day Unknown Immunizations Description No Information Available Vital Signs Date Vital Result Comment 07/12/2020 10:35am BP Systolic 116 mmHg BP Diastolic 75 mmHg Heart Rate 68 /min Height 65 inches 5'5" Weight 168.25 lb BMI (Body Mass Index) 28.0 kg/m2 [place] Body Weight 125 lb Weight 76.318 kg BSA (Body Surface Area) 1.84 m2 Results Description No Information Available Procedures Description No Information Available Medical Devices Description No Information Available Encounters Description No Information Available Assessments Description No Information Available Plan of Treatment No Information Available Functional Status Description No Information Available Mental Status Description No Information Available Referrals Refer to Reason for Referral Status Appt Date Yahir Muñoz JR, MD EGD Scheduled [address] [place] [address] [phone]
--- OUTSIDE RECORDS SUMMARY | 2020-08-05 10:38 | CCD ---
Continuity of Care Document (CCD) Created on: 07/13/2020 [employer] External Reference #: [id number] : [id number] Sex: Female Author Author Elo WOOD [facility] Organization Unknown Address 3 [facility] [place] [address] Phone [phone] Problems Active Problems Provider Date Myalgia & [...] Suspension Rec injection 1units [facility].O., [facility] 08/21/2017 Prevnar 13 Suspension as directed .500ml [...] in 1 week. 2tabs Brayan Farr D.O., [facility] 05/21/2020 - 06/04/2020 Medications Administered in Office Medication SIG Qnty Indications Ordering Provider Date Injection (SC)/(Im) Injection Jorge Wood RPA 03/21/2013 Immunizations CPT Code Status Date Vaccine Lot # 63038 Given 04/05/2020 Influenza Virus Vaccine, Quadrivalent, Slit Virus, Im Use 3Y & Up [id number] 55173 Given 04/25/2019 Influenza Virus Vaccine, Quadrivalent, Slit Virus, Im Use 3Y & Up [id number] 93324 Given 06/19/2018 Influenza Virus Vaccine, Quadrivalent, Slit Virus, Im Use 3Y & Up [id number] 87551 Given 05/08/2017 Influenza Virus Vaccine, Quadrivalent, Slit Virus, Im Use 3Y & Up [id number] 19170 Given 03/21/2016 Influenza Virus Vaccine, Quadrivalent, Slit Virus, Im Use 3Y & Up [id number] 63749 Given 03/31/2015 Influenza Vaccin e (Fluzone) 3Yrs Of Age Or Older Medicare Plans [id number] 99487 Given 04/08/2014 Influenza Vaccin e (Fluzone) 3Yrs Of Age Or Older Medicare Plans [id number] 33059 Given 03/21/2013 Influenza Virus Vac. Split Virus Individuals 3 Years And Above [id number] Vital Signs Date Vital Result Comment 05/21/2020 3:18pm BP Systolic 120 mmHg BP Diastolic 82 mmHg Body Temperature 98.5 F Heart Rate 76 /min Respiratory Rate 16 /min Height 66 inches 5'6" Weight 174.00 lb [place] Body Weight 130 lb BMI (Body Mass Index) 28.1 kg/m2 O2 % BldC Oximetry 97 % 04/19/2020 8:58am BP Systolic 102 mmHg BP Diastolic 62 mmHg Body Temperature 98.7 F Heart Rate 85 /min Respiratory Rate 16 /min Height 66 inches 5'6" Weight 180.00 lb [place] Body Weight 130 lb BMI (Body Mass Index) 29.0 kg/m2 O2 % BldC Oximetry 98 % Results Test Acquired Date Facility Test Result H/L Range Note CBC With Differential 07/13/2020 [facility] ([facility]) [phone] White Blood Count 7.1 10 Normal 4.0-10.0 [...] 36.0-66.0 Lymph % 13.2 % Low 24.0-44.0 [place] % 6.7 % High 0.0-5.0 Eos % 0.6 % Normal 0.0-3.0 Baso % 0.4 % Normal 0.0-1.0 Immature Granulocyte % 0.4 % Normal 0-3.0 Nucleated Red Blood Cell % 0.0 % Normal 0-0 Neutrophils # 5.6 10 Normal 1.5-8.5 Lymph # 0.9 10 Low 1.5-5.0 [place] # 0.5 10 Normal 0.0-0.8 Eos # 0.0 10 Normal 0.0-0.5 Baso # 0.0 10 Normal 0.0-0.2 Urine Culture, Routine 05/21/2020 [facility] [place] Urine Culture, Routine Final report Abnormal 1, 2 Result 1 Escherichia coli Abnormal 3 Antimicrobial Susceptibility See Comment: 4 U/A DIP FPA 05/21/2020 [facility] Practice Asso ciates Color Urine YELLOW Yellow Appearance CLEAR Clear Specific [place] 1.030 1.00-1.03 PH Urine 5.0 5.0-8.0 Glucose Urine NEG Negative Bilirubin Urine 1+ High Negative Ketones 1+ High Negative Blood Urine 1+ High Negative Protein Urine .2 High Negative Urobilinogen 2.0 EU/dl High 0.2-1.0 Nitrite NEG Negative Leukocytes NEG Negative CBC W/Diff 04/21/[address] [address] (315)- - WBC 5.5 K/mm3 4.0-10.0 RBC 4.28 [...] 0.0 K/mm3 0.0-0.2 Complete Metabolic Profile 04/21/[address] [place] [address] [address] (691)- - Glu 90 mg/dL 74-106 BUN 13 [...] 3.6 gm/dL 3.4-5.0 Laboratory test finding 04/21/[address] [address] (211)- - Iron 75 g/dL 50-170 Tibc 236 [...] eGFR 106 # Calc 10 eGFR Non-Afr. Kyrgyz 92 # Calc 11 Coronavirus 2019 Nasopharygeal 02/04/2020 [facility] ([facility]) [phone] Coronavirus 2019 Nasopharygeal This test was de [...] eGFR 101 # Calc 13 eGFR Non-Afr. Kyrgyz 87 # Calc 14 1 SRC:URINE 2 [...] deficiency has bee n defined by the [place] of Medicine and an Endocrine Society practice guideline as a level of serum 25-OH vitamin D less than 20 ng/mL (1,2). The Endocrine Society went on to further define vitamin D insufficiency as a level between 21 and 29 ng/mL (2). 1. IOM ([place] of Medicine). 2010. Di etary reference intakes for calcium and D. [place]: The National Academies Press. 2. Hanna MF, [place] GRIFFITH, Joao norris PISANO, et al. Evaluation, treatment, and prevention of vitamin D deficiency: an Endocrine Society clinical practice guideline. JCEM. 2010; 96(7):1911-30. 7 Performed at: [facility] [address] [id number] Event Services Manager: Lelo Mtz MD, Phone: [phone] 8 Nonsmokers <3.9 Smokers <5.6 [facility] Electrochemiluminescence Immunoassay (ECLIA) Values obtained with different assay methods or kits cannot be used interchangeably. Results cannot be interpreted as absolute evidence of the presence or absence of malignant disease. Performed at: [facility] [address] [id number] Event Services Manager: Lelo Mtz MD, Phone: [phone] 9 NORMAL RANGES Age WBC RBC HGB [...] HCT IS 5% LESS SOURCE FOR DATA: [employer] 1800 OPERATION MANUAL( AUTOMATED BLOOD COUNTS AND [...] developed and its performance characteristics determined by [employer]. This test has not been FDA cleared [...] detected) result in this assay. Performed at: - [facility] [id number] Event Services Manager: Lelo Mtz MD, Phone: [phone] Not Detected 13 CKD-EPI 14 CKD-EPI Procedures Date Code Description Status 02/02/2020 94624 Electrocardiogram Complete Compl eted Medical Devices Description No Information Available Encounters Type Date Location Provider Dx Diagnosis Office Visit 05/21/2020 3:30p [facility] Jorge Wood, RP A N39.0 Urinary tract infection, site not specified R14.3 Flatulence R10.13 Epigastric pain R11.0 Nausea Office Visit 04/19/2020 8:45a [facility] Jorge Wood, RP A R53.83 Other fatigue R10.9 Unspecified abdominal pain R11.2 Nausea with vomiting, unspec ified R35.0 Frequency of micturition R39.15 Urgency of urination Office Visit 02/02/2020 2:20p [facility] Jorge Wood, RP A Z01.818 Encounter for [...] Jamison, RPA 04/19/2020 R11.2 Nausea with vomiting, unspecifie Jorge Ying, RPA 04/19/2020 R35.0 Frequency of micturition Jorge Wood, RPA 04/19/2020 R39.15 Urgency of urination Jeremiah Wood, RPA 04/05/2020 Z23 Encounter for immunization Constantin Salmeron [...] 02/02/2020 Z98.84 Bariatric surgery status Jorge Wood, [facility] Plan of Treatment No Information Available Functional Status Description No Information Available Mental Status Description No Information Available Referrals Refer to Reason for Referral Status Appt Date Constantin Banuelos MD Abdominal pain x 2 mos--hx Gastric by pass with recent UGI demonstrating a hiatal hernia and two enlarging diverticula in the pouch. Sent [address] [place] [address] [phone]
--- OUTSIDE RECORDS SUMMARY | 2020-08-05 10:38 | CCD | Continuity of Care Document ---
Author Author Elo WOOD [facility] Organization Unknown Address [address] [facility] [place] [address] Phone [phone] Problems Active Problems Provider Date Myalgia & [...] in 1 week. 2tabs Brayan Farr D.O., [facility] 05/21/2020 Famotidine 20mg Tablets 1 by mouth [...] 1 po qd OTC [facility] 10/14[facility]2013 Vitamin B-12 100mcg Tablets 1 by [...] CPT Code Status Date Vaccine Lot # 13646 Given 04/05/2020 Influenza Virus Vaccine, Quadrivalent, Slit Virus, Im Use 3Y & Up [id number] 60750 Given 04/25/2019 Influenza Virus Vaccine, Quadrivalent, Slit Virus, Im Use 3Y & Up [id number] 75326 Given 06/19/2018 Influenza Virus Vaccine, Quadrivalent, Slit Virus, Im Use 3Y & Up [id number] 09546 Given 05/08/2017 Influenza Virus Vaccine, Quadrivalent, Slit Virus, Im Use 3Y & Up [id number] 05098 Given 03/21/2016 Influenza Virus Vaccine, Quadrivalent, Slit Virus, Im Use 3Y & Up [id number] 74529 Given 03/31/2015 Influenza Vaccin e (Fluzone) 3Yrs Of Age Or Older Medicare Plans [id number] 55333 Given 04/08/2014 Influenza Vaccin e (Fluzone) 3Yrs Of Age Or Older Medicare Plans [id number] 09422 Given 03/21/2013 Influenza Virus Vac. Split Virus Individuals 3 Years And Above [id number] Vital Signs Date Vital Result Comment 05/21/2020 3:18pm BP Systolic 120 mmHg BP Diastolic 82 mmHg Body Temperature 98.5 F Heart Rate 76 /min Respiratory Rate 16 /min Height 66 inches 5'6" Weight 174.00 lb [place] Body Weight 130 lb BMI (Body Mass Index) 28.1 kg/m2 O2 % BldC Oximetry 97 % 04/19/2020 8:58am BP Systolic 102 mmHg BP Diastolic 62 mmHg Body Temperature 98.7 F Heart Rate 85 /min Respiratory Rate 16 /min Height 66 inches 5'6" Weight 180.00 lb [place] Body Weight 130 lb BMI (Body Mass Index) 29.0 kg/m2 O2 % BldC Oximetry 98 % Results Test Acquired Date Facility Test Result H/L Range Note U/A DIP FPA 05/21/2020 [facility] Asso ciates Color Urine YELLOW Yellow Appearance CLEAR Clear Specific [place] 1.030 1.00-1.03 PH Urine 5.0 5.0-8.0 Glucose Urine NEG Negative Bilirubin Urine 1+ High Negative Ketones 1+ High Negative Blood Urine 1+ High Negative Protein Urine .2 High Negative Urobilinogen 2.0 EU/dl High 0.2-1.0 Nitrite NEG Negative Leukocytes NEG Negative CBC W/Diff 04/21/[address] [address] (315)- - WBC 5.5 K/mm3 4.0-10.0 RBC [...] 0.0 K/mm3 0.0-0.2 Complete Metabolic Profile 04/21/2020 [place] [phone] (901)- - Glu 90 mg/dL 74-106 BUN 13 mg/dL 7-18 Cre 0.7 mg/dL 0.6-1.0 Na 143 mmol/L 136-145 K 4.4 mmol/L 3.5-5.1 CL 102 mmol/L 98-107 Co2 29 mmol/L 21-32 CA 9.6 mg/dL 8.5-10.1 Gap 12.0 mmol/L 5-12 GFR 82 mL/min 1 Ast 14 U/L Low 15-37 Alt 7 U/L Low 12-78 Alk 84 U/L 46-116 Tbili 0.4 mg/dL 0.2-1.0 TP 7.0 g/dL 6.4-8.2 Alb 3.6 gm/dL 3.4-5.0 Laboratory test finding 04/21/[address] [address] (828)- - Iron 75 g/dL 50-170 Tibc 236 g/dL Low 250-450 Vitamin D, 25-Hydroxy 25.5 ng/mL Low 30.0-100.0 2 Vitamin B12 617 pg/mL 232-1245 3 Ferritin 144 ng/mL 8-252 Cea 1.5 ng/mL 0.0-4.7 4 Laboratory test finding 04/19/2020 [facility] [place] Lipase 32 U/L 14-85 Amylase 54 U/L 31-110 CBC 04/19/2020 FPA/Inhouse WBC 7.5 10E3/uL 4.1 - 10.9 5 RBC 4.30 10E6/uL 4.20 - 6.30 HGB [...] Gap 20 mmol/L eGFR 106 # Calc 6 eGFR Non-Afr. Mexican 92 # Calc 7 Coronavirus 2019 Nasopharygeal 02/04/2020 [facility] ([facility]) [phone] Coronavirus 2019 Nasopharygeal This test was de <SEE N OTE> 8 CBC 02/02/2020 [facility]PA/Inhouse WBC 5.5 10E3/uL 4.1 [...] Gap 20 mmol/L eGFR 101 # Calc 9 eGFR Non-Afr. Mexican 87 # Calc 10 1 GFR IS CALCULATED IN mL/min/ 1.73m2 NORMAL FUNCTION: >90 MILDLY DECREASED: 60-89 MILDY TO MODERATELY DECREASED: 45-59 MODERATELY TO SEVERELY DECREASED: 30-44 SEVERELY DECREASED: 15-29 RENAL FAILURE: <15 2 Vitamin D deficiency has bee n defined by the [place] of Medicine and an Endocrine Society practice guideline as a level of serum 25-OH vitamin D less than 20 ng/mL (1,2). The Endocrine Society went on to further define vitamin D insufficiency as a level between 21 and 29 ng/mL (2). 1. IOM ([place] of Medicine). 2010. Di etary reference intakes for calcium and D. [place]: The National Academies Press. 2. Hanna MF, [place] GRIFFITH, Joao norris PISANO, et al. Evaluation, treatment, and prevention of vitamin D deficiency: an Endocrine Society clinical practice guideline. JCEM. 2010; 96(7):1911-30. 3 Performed at: [facility] [employer] [id number] Piece Work Checker: Lelo Mtz MD, Phone: [phone] 4 Nonsmokers <3.9 Smokers <5.6 [facility] Electrochemiluminescence Immunoassay (ECLIA) Values obtained with different assay methods or kits cannot be used interchangeably. Results cannot be interpreted as absolute evidence of the presence or absence of malignant disease. Performed at: [facility] [id number] Piece Work Checker: Lelo Mtz MD, Phone: [phone] 5 NORMAL RANGES Age WBC RBC HGB HCT [...] HCT IS 5% LESS SOURCE FOR DATA: [employer] 1800 OPERATION MANUAL( AUTOMATED BLOOD COUNTS AND [...] Normal 80 and above >32 mL/min Normal 6 CKD-EPI 7 CKD-EPI 8 This test was developed and its performance characteristics determined by [employer]. This test has not been FDA cleared [...] detected) result in this assay. Performed at: RN - [facility] [address] [id number] Piece Work Checker: Lelo Mtz MD, Phone: [phone] Not Detected 9 CKD-EPI 10 CKD-EPI Procedures Date Code Description Status 02/02/2020 25887 Electrocardiogram Complete Compl eted Medical Devices Description No Information Available Encounters Type Date Location Provider Dx Diagnosis Office Visit 05/21/2020 3:30p [place] [facility] Jorge Wood, RP A N39.0 Urinary tract infection, site not specified R14.3 Flatulence R10.13 Epigastric pain R11.0 Nausea Office Visit 04/19/2020 8:45a [facility] Jorge Wood, RP A R53.83 Other fatigue R10.9 Unspecified abdominal pain R11.2 Nausea with vomiting, unspec ified R35.0 Frequency of micturition R39.15 Urgency of urination Office Visit 02/02/2020 2:20p [facility] Jorge Wood, RP A Z01.818 Encounter [...] RPA 04/19/2020 R11.2 Nausea with vomiting, unspecifie d Jorge Wood, RPA 04/19/2020 R35.0 Frequency of micturition Jorge [...]
--- OUTSIDE RECORDS SUMMARY | 2020-08-05 10:38 | CCD | Continuity of Care Document ---
Author Author Elo WOOD [facility] Organization Unknown Address [address] [facility] [place] [address] Phone [phone] Problems Active Problems Provider Date Myalgia & [...] in 1 week. 2tabs Brayan Farr DIliana, [facility] 05/21/2020 Famotidine 20mg Tablets 1 by mouth [...] 1 po qd OTC [facility]O., [facility] 10/14/2013 Vitamin B-12 100mcg Tablets 1 [...] CPT Code Status Date Vaccine Lot # [id number] Given 04/05/2020 Influenza Virus Vaccine, Quadrivalent, Slit Virus, Im Use 3Y & Up [id number] 59426 Given 04/25/2019 Influenza Virus Vaccine, Quadrivalent, Slit Virus, Im Use 3Y & Up [id number] 54846 Given 06/19/2018 Influenza Virus Vaccine, Quadrivalent, Slit Virus, Im Use 3Y & Up [id number] 97924 Given 05/08/2017 Influenza Virus Vaccine, Quadrivalent, Slit Virus, Im Use 3Y & Up [id number] 86780 Given 03/21/2016 Influenza Virus Vaccine, Quadrivalent, Slit Virus, Im Use 3Y & Up [id number] 52131 Given 03/31/2015 Influenza Vaccin e (Fluzone) 3Yrs Of Age Or Older Medicare Plans [id number] 20573 Given 04/08/2014 Influenza Vaccin e (Fluzone) 3Yrs Of Age Or Older Medicare Plans [id number] 92305 Given 03/21/2013 Influenza Virus Vac. Split Virus Individuals 3 Years And Above [id number] Vital Signs Date Vital Result Comment 05/21/2020 3:18pm BP Systolic 120 mmHg BP Diastolic 82 mmHg Body Temperature 98.5 F Heart Rate 76 /min Respiratory Rate 16 /min Height 66 inches 5'6" Weight 174.00 lb [place] Body Weight 130 lb BMI (Body Mass Index) 28.1 kg/m2 O2 % BldC Oximetry 97 % 04/19/2020 8:58am BP Systolic 102 mmHg BP Diastolic 62 mmHg Body Temperature 98.7 F Heart Rate 85 /min Respiratory Rate 16 /min Height 66 inches 5'6" Weight 180.00 lb [place] Body Weight 130 lb BMI (Body Mass [...] Urine YELLOW Yellow Appearance CLEAR Clear Specific [place] 1.030 1.00-1.03 PH Urine 5.0 5.0-8.0 Glucose Urine NEG Negative Bilirubin Urine 1+ High Negative Ketones 1+ High Negative Blood Urine 1+ High Negative Protein Urine .2 High Negative Urobilinogen 2.0 EU/dl High 0.2-1.0 Nitrite NEG Negative Leukocytes NEG Negative CBC W/Diff 04/21/[address] [address] (743)- - WBC 5.5 K/mm3 4.0-10.0 RBC 4.28 [...] 0.0 K/mm3 0.0-0.2 Complete Metabolic Profile 04/21/[address] [address] (589)- - Glu 90 mg/dL 74-106 BUN 13 [...] 3.6 gm/dL 3.4-5.0 Laboratory test finding 04/21/[address] [address] (103)- - Iron 75 g/dL 50-170 Tibc 236 [...] eGFR 106 # Calc 10 eGFR Non-Afr. [place] 92 # Calc 11 Coronavirus 2019 Nasopharygeal 02/04/2020 [facility] ([facility]) [phone] Coronavirus 2019 Nasopharygeal This test was de [...] eGFR 101 # Calc 13 eGFR Non-Afr. [place] 87 # Calc 14 1 SRC:URINE 2 [...] deficiency has bee n defined by the [place] of Medicine and an Endocrine Society practice guideline as a level of serum 25-OH vitamin D less than 20 ng/mL (1,2). The Endocrine Society went on to further define vitamin D insufficiency as a level between 21 and 29 ng/mL (2). 1. IOM ([place] of Medicine). 2010. Di etary reference intakes for calcium and D. [place]: The National Academies Press. 2. Hanna MF, [place], Ailyn-Ran norris PISANO, et al. Evaluation, treatment, and prevention of vitamin D deficiency: an Endocrine Society clinical practice guideline. JCEM. 2010; 96(7):1911-30. 7 Performed at: [facility] [address] [id number] Certified Paralegal: Lelo Mtz MD, Phone: [phone] 8 Nonsmokers <3.9 Smokers <5.6 [facility] Electrochemiluminescence Immunoassay (ECLIA) Values obtained with different assay methods or kits cannot be used interchangeably. Results cannot be interpreted as absolute evidence of the presence or absence of malignant disease. Performed at: [facility] [address] [id number] Certified Paralegal: Lelo Mtz MD, Phone: [phone] NORMAL RANGES Age WBC RBC HGB [...] HCT IS 5% LESS SOURCE FOR DATA: [employer] DYN 1800 OPERATION MANUAL( AUTOMATED BLOOD COUNTS [...] developed and its performance characteristics determined by [employer]. This test has not been FDA cleared [...] detected) result in this assay. Performed at: [address] [id number] Certified Paralegal: Lelo Mtz MD, Phone: [phone] Not Detected 13 CKD-EPI 14 CKD-EPI Procedures Date Code Description Status 02/02/2020 62272 Electrocardiogram Complete Compl eted Medical Devices Description No Information Available Encounters Type Date Location Provider Dx Diagnosis Office Visit 05/21/2020 3:30p [facility] Jorge Wood, RP A N39.0 Urinary tract infection, site not specified R14.3 Flatulence R10.13 Epigastric pain R11.0 Nausea Office Visit 04/19/2020 8:45a [facility] Jorge Wood, RP A R53.83 Other fatigue R10.9 Unspecified abdominal pain R11.2 Nausea with vomiting, unspec ified R35.0 Frequency of micturition R39.15 Urgency of urination Office Visit 02/02/2020 2:20p [facility] Jorge Wood, RP A Z01.818 Encounter [...] 04/19/2020 R39.15 Urgency of urination Jeremiah Wood, [facility] 04/05/2020 Z23 Encounter for [...]
--- OUTSIDE RECORDS SUMMARY | 2020-08-05 10:39 | CCD | Continuity of Care Document ---
Author Author Elo WOOD [facility] Organization Unknown Address [address] [facility] [place] [address] Phone [phone] Problems Active Problems Provider Date Myalgia & [...] in 1 week. 2tabs Brayan Farr D.O., [facility] 05/21/2020 Famotidine 20mg Tablets 1 by [...] 1 po qd OTC [facility] Vitamin B-12 100mcg Tablets 1 [...] CPT Code Status Date Vaccine Lot # [id number] Given 04/05/2020 Influenza Virus Vaccine, Quadrivalent, Slit Virus, Im Use 3Y & Up [id number] 77102 Given 04/25/2019 Influenza Virus Vaccine, Quadrivalent, Slit Virus, Im Use 3Y & Up [id number] 92941 Given 06/19/2018 Influenza Virus Vaccine, Quadrivalent, Slit Virus, Im Use 3Y & Up [id number] 49675 Given 05/08/2017 Influenza Virus Vaccine, Quadrivalent, Slit Virus, Im Use 3Y & Up [id number] 94182 Given 03/21/2016 Influenza Virus Vaccine, Quadrivalent, Slit Virus, Im Use 3Y & Up [id number] 89855 Given 03/31/2015 Influenza Vaccin e (Fluzone) 3Yrs Of Age Or Older Medicare Plans [id number] 74262 Given 04/08/2014 Influenza Vaccin e (Fluzone) 3Yrs Of Age Or Older Medicare Plans [id number] 06144 Given 03/21/2013 Influenza Virus Vac. Split Virus Individuals 3 Years And Above [id number] Vital Signs Date Vital Result Comment 05/21/2020 3:18pm BP Systolic 120 mmHg BP Diastolic 82 mmHg Body Temperature 98.5 F Heart Rate 76 /min Respiratory Rate 16 /min Height 66 inches 5'6" Weight 174.00 lb [place] Body Weight 130 lb BMI (Body Mass Index) 28.1 kg/m2 O2 % BldC Oximetry 97 % 04/19/2020 8:58am BP Systolic 102 mmHg BP Diastolic 62 mmHg Body Temperature 98.7 F Heart Rate 85 /min Respiratory Rate 16 /min Height 66 inches 5'6" Weight 180.00 lb [place] Body Weight 130 lb BMI (Body Mass Index) 29.0 kg/m2 O2 % BldC Oximetry 98 % Results Test Acquired Date Facility Test Result H/L Range Note U/A DIP FPA 05/21/2020 [facility] Color Urine YELLOW Yellow Appearance CLEAR Clear Specific [place] 1.030 1.00-1.03 PH Urine 5.0 5.0-8.0 Glucose Urine NEG Negative Bilirubin Urine 1+ High Negative Ketones 1+ High Negative Blood Urine 1+ High Negative Protein Urine .2 High Negative Urobilinogen 2.0 EU/dl High 0.2-1.0 Nitrite NEG Negative Leukocytes NEG Negative CBC W/Diff 04/21/[address] [address] (315)- - WBC 5.5 K/mm3 4.0-10.0 RBC [...] 0.0 K/mm3 0.0-0.2 Complete Metabolic Profile 04/21/2020 [place] [id number] (574)- - Glu 90 mg/dL 74-106 BUN 13 [...] 3.6 gm/dL 3.4-5.0 Laboratory test finding 04/21/[address] [address] (068)- - Iron 75 g/dL 50-170 Tibc 236 [...] eGFR 106 # Calc 6 eGFR Non-Afr. [place] 92 # Calc 7 Coronavirus 2019 Nasopharygeal 02/04/2020 [facility] ([facility]) [phone] Coronavirus 2019 Nasopharygeal This test was de [...] eGFR 101 # Calc 9 eGFR Non-Afr. Serbian 87 # Calc 10 1 GFR IS CALCULATED IN mL/min/ 1.73m2 NORMAL FUNCTION: >90 MILDLY DECREASED: 60-89 MILDY TO MODERATELY DECREASED: 45-59 MODERATELY TO SEVERELY DECREASED: 30-44 SEVERELY DECREASED: 15-29 RENAL FAILURE: <15 2 Vitamin D deficiency has bee n defined by the [place] of Medicine and an Endocrine Society practice guideline as a level of serum 25-OH vitamin D less than 20 ng/mL (1,2). The Endocrine Society went on to further define vitamin D insufficiency as a level between 21 and 29 ng/mL (2). 1. IOM ([place] of Medicine). 2010. Di etary reference intakes for calcium and D. [place]: The National Academies Press. 2. Hanna MF, [place] GRIFFITH, Joao norris PISANO, et al. Evaluation, treatment, and prevention of vitamin D deficiency: an Endocrine Society clinical practice guideline. JCEM. 2010; 96(7):1911-30. 3 Performed at: [facility] [employer] [id number] Event Marketing Assistant: Lelo Mtz MD, Phone: [phone] 4 Nonsmokers <3.9 Smokers <5.6 [facility] Electrochemiluminescence Immunoassay (ECLIA) Values obtained with different assay methods or kits cannot be used interchangeably. Results cannot be interpreted as absolute evidence of the presence or absence of malignant disease. Performed at: [facility] [employer] [id number] Event Marketing Assistant: Lelo Mtz MD, Phone: [phone] 5 NORMAL RANGES Age WBC RBC HGB [...] HCT IS 5% LESS SOURCE FOR DATA: [employer] 1800 OPERATION MANUAL( AUTOMATED BLOOD COUNTS AND [...] developed and its performance characteristics determined by [employer]. This test has not been FDA cleared [...] this assay. Performed at: RN - [facility] [address] [id number] Event Marketing Assistant: Lelo Mtz MD, Phone: [phone] Not Detected 9 CKD-EPI 10 CKD-EPI Procedures Date Code Description Status 02/02/2020 35724 Electrocardiogram Complete Compl eted Medical Devices Description No Information Available Encounters Type Date Location Provider Dx Diagnosis Office Visit 04/19/2020 8:45a [facility] Jorge Wood, RP A R53.83 Other fatigue R10.9 Unspecified abdominal pain R11.2 Nausea with vomiting, unspec ified R35.0 Frequency of micturition R39.15 Urgency of urination Office Visit 02/02/2020 2:20p [facility] Jorge Wood, RP A Z01.818 Encounter [...] Wood, RPA 04/19/2020 R10.9 Unspecified abdominal pain Harshila Jorge diaz, RPA 04/19/2020 R11.2 Nausea with vomiting, unspecifie d Jorge Wood, RPA 04/19/2020 R35.0 Frequency of micturition Jorge oWod, RPA 04/19/2020 R39.15 Urgency of urination Jeremiah [...] 02/02/2020 Z98.84 Bariatric surgery status Jorge Wood, [facility] Plan of Treatment No Information Available Functional Status Description No Information Available Mental Status Description No Information Available Referrals Description No Information Available
--- OUTSIDE RECORDS SUMMARY | 2020-08-05 10:40 | CCD ---
Author Author [facility] Organization [facility] Address Unknown Phone Unavailable Care Team Providers Care Quality Inspector Name Role Phone Brooke GAYTAN MD Unavailable Unavailable Brooke GAYTAN MD Unavailable Unavailable Brooke GAYTAN MD Unavailable Unavailable Brooke GAYTAN MD Unavailable Unavailable Brooke GAYTAN MD Unavailable Unavailable Brooke GAYTAN MD Unavailable Unavailable Brooke GAYTAN MD Unavailable Unavailable Brooke GAYTAN MD Unavailable Unavailable Brooke GAYTAN MD Unavailable Unavailable Brooke GAYTAN MD Unavailable Unavailable Brooke GAYTAN MD Unavailable Unavailable Brooke GAYTAN MD Unavailable Unavailable Brooke GAYTAN MD Unavailable Unavailable SETTERBrooke MD Unavailable Unavailable SETTERBrooke MD Unavailable Unavailable SETTERBrooke MD Unavailable Unavailable SETTERBrooke MD Unavailable Unavailable SETTERBrooke MD Unavailable Unavailable SETTER, Brooke THOMPSON MD Unavailable Unavailable SETTER, Brooke THOMPSON MD Unavailable Unavailable SETTER, Brooke THOMPSON MD Unavailable Unavailable SETTERBrooke MD Unavailable Unavailable SETTERBrooke MD Unavailable Unavailable SETTERBrooke MD Unavailable Unavailable SETTER, Brooke THOMPSON MD Unavailable Unavailable SETTER, Brooke THOMPSON MD Unavailable Unavailable SETTER, Brooke THOMPSON MD Unavailable Unavailable SETTER, Brooke THOMPSON MD Unavailable Unavailable SETTER, Brooke THOMPSON MD Unavailable Unavailable SETTER, Brooke THOMPSON MD Unavailable Unavailable SETTER, Brooke THOMPSON MD Unavailable Unavailable SETTER, Brooke THOMPSON MD Unavailable Unavailable SETTER, Brooke THOMPSON MD Unavailable Unavailable SETTER, Brooke THOMPSON MD Unavailable Unavailable SETTERBrooke MD Unavailable Unavailable SETTERBrooke MD Unavailable Unavailable SETTERBrooke MD Unavailable Unavailable SETTERBrooke MD Unavailable Unavailable SETTER, Brooke THOMPSON MD Unavailable Unavailable SETTERBrooke MD Unavailable Unavailable SETTERBrooke MD Unavailable Unavailable SETTERBrooke MD Unavailable Unavailable SETTERBrooke MD Unavailable Unavailable SETTERBrooke MD Unavailable Unavailable SETTERBrooke MD Unavailable Unavailable SETTERBrooke MD Unavailable Unavailable SETTERBrooke MD Unavailable Unavailable SETTERBrooke MD Unavailable Unavailable SETTERBrooke MD Unavailable Unavailable SETTERBrooke MD Unavailable Unavailable SETTERBrooke MD Unavailable Unavailable SETTERBrooke MD Unavailable Unavailable SETTERBrooke MD Unavailable Unavailable SETTERBrooke MD Unavailable Unavailable SETTERBrooke MD Unavailable Unavailable SETTERBrooke MD Unavailable Unavailable SETTERBrooke MD Unavailable Unavailable SETTERBrooke MD Unavailable Unavailable SETTERBrooke MD Unavailable Unavailable SETTERBrooke MD Unavailable Unavailable SETTERBrooke MD Unavailable Unavailable SETTERBrooke MD Unavailable Unavailable SETTERBrooke MD Unavailable Unavailable SETTERBrooke MD Unavailable Unavailable SETTERBrooke MD Unavailable Unavailable SETTERBrooke MD Unavailable Unavailable SETTERBrooke MD Unavailable Unavailable SETTERBrooke MD Unavailable Unavailable SETTERBrooke MD Unavailable Unavailable SETTERBrooke MD Unavailable Unavailable SETTERBrooke MD Unavailable Unavailable SETTERBrooke MD Unavailable Unavailable SETTER, Brooke THOMPSON MD Unavailable Unavailable SETTER, Brooke THOMPSON MD Unavailable Unavailable SETTER, Brooke THOMPSON MD Unavailable Unavailable SETTERBrooke MD Unavailable Unavailable SETTERBrooke MD Unavailable Unavailable SETTERBrooke MD Unavailable Unavailable SETTER, Brooke THOMPSON MD Unavailable Unavailable SETTER, Brooke THOMPSON MD Unavailable Unavailable SETTER, Brooke THOMPSON MD Unavailable Unavailable SETTER, Brooke THOMPSON MD Unavailable Unavailable SETTERBrooke MD Unavailable Unavailable SETTERBrooke MD Unavailable Unavailable SETTER, Brooke THOMPSON MD Unavailable Unavailable SETTER, Brooke THOMPSON MD Unavailable Unavailable SETTER, Brooke THOMPSON MD Unavailable Unavailable SETTER, Brooke THOMPSON MD Unavailable Unavailable SETTER, Brooke THOMPSON MD Unavailable Unavailable SETTERBrooke MD Unavailable Unavailable SETTERBrooke MD Unavailable Unavailable SETTERBrooke MD Unavailable Unavailable SETTERBrooke MD Unavailable Unavailable SETTERBrooke MD Unavailable Unavailable SETTERBrooke MD Unavailable Unavailable SETTERBrooke MD Unavailable Unavailable SETTERBrooke MD Unavailable Unavailable SETTERBrooke MD Unavailable Unavailable SETTERBrooke MD Unavailable Unavailable SETTERBrooke MD Unavailable Unavailable SETTERBrooke MD Unavailable Unavailable SETTERBrooke MD Unavailable Unavailable SETTERBrooke MD Unavailable Unavailable SETTERBrooke MD Unavailable Unavailable SETTERBrooke MD Unavailable Unavailable SETTERBrooke MD Unavailable Unavailable SETTERBrooke MD Unavailable Unavailable Barraclough, Jessica PA Unavailable Unavailable Barraclough, Jessica PA Unavailable Unavailable Barraclough, Jessica PA Unavailable Unavailable Barraclough, Jessica PA Unavailable Unavailable Barraclough, Jessica PA Unavailable Unavailable Barraclough, Jessica PA Unavailable Unavailable LISA HERNANDEZ MD Unavailable Unavailable LISA HERNANDEZ MD Unavailable Unavailable LISA HERNANDEZ MD Unavailable Unavailable LISA HERNANDEZ MD Unavailable Unavailable LISA HERNANDEZ MD Unavailable Unavailable LISA HERNANDEZ MD Unavailable Unavailable LISA HERNANDEZ MD Unavailable Unavailable LISA HERNANDEZ MD Unavailable Unavailable TAMIR PRICE MD MPH Unavailable Unavailable Alberry, D Roxana BEATER ENGINEER HELPER Unavailable Unavailable Alberry, D Roxana BEATER ENGINEER HELPER Unavailable Unavailable Alberry, D Roxana BEATER ENGINEER HELPER Unavailable Unavailable Alberry, D Roxana BEATER ENGINEER HELPER Unavailable Unavailable Alberry, D Roxana BEATER ENGINEER HELPER Unavailable Unavailable Alberry, D Roxana BEATER ENGINEER HELPER Unavailable Unavailable Alberry, D Roxana BEATER ENGINEER HELPER Unavailable Unavailable Alberry, D Roxana BEATER ENGINEER HELPER Unavailable Unavailable Alberry, D Roxana BEATER ENGINEER HELPER Unavailable Unavailable Alberry, D Roxana BEATER ENGINEER HELPER Unavailable Unavailable Alberry, D Roxana BEATER ENGINEER HELPER Unavailable Unavailable Alberry, D Roxana BEATER ENGINEER HELPER Unavailable Unavailable Alberry, D Roxana BEATER ENGINEER HELPER Unavailable Unavailable Alberry, D Roxana BEATER ENGINEER HELPER Unavailable Unavailable Alberry, D Roxana BEATER ENGINEER HELPER Unavailable Unavailable Alberry, D Roxana BEATER ENGINEER HELPER Unavailable Unavailable Alberry, D Roxana BEATER ENGINEER HELPER Unavailable Unavailable Alberry, D Roxana BEATER ENGINEER HELPER Unavailable Unavailable Alberry, D Roxana BEATER ENGINEER HELPER Unavailable Unavailable Alberry, D Roxana BEATER ENGINEER HELPER Unavailable Unavailable Alberry, D Roxana BEATER ENGINEER HELPER Unavailable Unavailable Alberry, D Roxana BEATER ENGINEER HELPER Unavailable Unavailable Alberry, D Roxana BEATER ENGINEER HELPER Unavailable Unavailable Alberry, D Roxana BEATER ENGINEER HELPER Unavailable Unavailable Alberry, D Roxana BEATER ENGINEER HELPER Unavailable Unavailable Alberry, D Rxoana BEATER ENGINEER HELPER Unavailable Unavailable Alberry, D Roxana BEATER ENGINEER HELPER Unavailable Unavailable Alberry, D Roxana BEATER ENGINEER HELPER Unavailable Unavailable Alberry, D Roxana BEATER ENGINEER HELPER Unavailable Unavailable Alberry, D Roxana BEATER ENGINEER HELPER Unavailable Unavailable Alberry, D Roxana BEATER ENGINEER HELPER Unavailable Unavailable Alberry, D Roxana BEATER ENGINEER HELPER Unavailable Unavailable Alberry, D Roxana BEATER ENGINEER HELPER Unavailable Unavailable Alberry, D Roxana BEATER ENGINEER HELPER Unavailable Unavailable Alberry, D Roxana BEATER ENGINEER HELPER Unavailable Unavailable Alberry, D Roxana BEATER ENGINEER HELPER Unavailable Unavailable Alberry, D Roxana BEATER ENGINEER HELPER Unavailable Unavailable Alberry, D Roxana BEATER ENGINEER HELPER Unavailable Unavailable Alberry, D Roxana BEATER ENGINEER HELPER Unavailable Unavailable Alberry, D Roxana BEATER ENGINEER HELPER Unavailable Unavailable Alberry, D Roxana BEATER ENGINEER HELPER Unavailable Unavailable Alberry, D Roxana BEATER ENGINEER HELPER Unavailable Unavailable Alberry, D Roxana BEATER ENGINEER HELPER Unavailable Unavailable Alberry, D Roxana BEATER ENGINEER HELPER Unavailable Unavailable Alberry, D Roxana BEATER ENGINEER HELPER Unavailable Unavailable Alberry, D Roxana BEATER ENGINEER HELPER Unavailable Unavailable Alberry, D Roxana BEATER ENGINEER HELPER Unavailable Unavailable Alberry, D Roxana BEATER ENGINEER HELPER Unavailable Unavailable Yarely Wood PA Unavailable Unavailable Yarely Wood PA Unavailable Unavailable Nina, D Jorge PA Unavailable Unavailable Nina, D Jorge PA Unavailable Unavailable Nina, D Jorge PA Unavailable Unavailable Nina, D Jorge PA Unavailable Unavailable Nina, D Jorge PA Unavailable Unavailable Nina, D Jorge PA Unavailable Unavailable Nina, D Jorge PA Unavailable Unavailable Nina, D Jorge PA Unavailable Unavailable Nina, D Jorge PA Unavailable Unavailable Nina, D Jorge PA Unavailable Unavailable Nina, D Jorge PA Unavailable Unavailable Nina, D Jorge PA Unavailable Unavailable Nina, D Jorge PA Unavailable Unavailable Nina, D Jorge PA Unavailable Unavailable Nina, D Jorge PA Unavailable Unavailable Nina, D Jorge PA Unavailable Unavailable Nina, D Jorge PA Unavailable Unavailable Nina, D Jorge PA Unavailable Unavailable Nina, D Jorge PA Unavailable Unavailable Nina, D Jorge PA Unavailable Unavailable Nina, D Jorge PA Unavailable Unavailable Nina, D Jorge PA Unavailable Unavailable Nina, D Jorge PA Unavailable Unavailable Nina, D Jorge PA Unavailable Unavailable Nina, D Jorge PA Unavailable Unavailable Nina, D Jorge PA Unavailable Unavailable Nina, D Jorge PA Unavailable Unavailable Nina, D Jorge PA Unavailable Unavailable Nina, D Jorge PA Unavailable Unavailable Nina, D Jorge PA Unavailable Unavailable Nina, D Jorge PA Unavailable Unavailable Nina, D Jorge PA Unavailable Unavailable Nina, D Jorge PA Unavailable Unavailable Nina, D Jorge PA Unavailable Unavailable Nina, D Jorge PA Unavailable Unavailable Nina, D Jorge PA Unavailable Unavailable Nina, D Jorge PA Unavailable Unavailable Nina, D Jorge PA Unavailable Unavailable Nina, D Jorge PA Unavailable Unavailable Nina, D Jorge PA Unavailable Unavailable Nina, D Jorge PA Unavailable Unavailable Nina, D Jorge PA Unavailable Unavailable Nina, D Jorge PA Unavailable Unavailable Nina, D Jorge PA Unavailable Unavailable Nina, D Jorge PA Unavailable Unavailable Nina, D Jorge PA Unavailable Unavailable Nina, D Jorge PA Unavailable Unavailable Nina, D Jorge PA Unavailable Unavailable Nina, D Jorge PA Unavailable Unavailable Nina, D Jorge PA Unavailable Unavailable Nina, D Jorge PA Unavailable Unavailable Nina, D Jorge PA Unavailable Unavailable Nina, D Jorge PA Unavailable Unavailable Nina, D Jorge PA Unavailable Unavailable Nina, D Jorge PA Unavailable Unavailable Nina, D Jorge PA Unavailable Unavailable Nina, D Jorge PA Unavailable Unavailable Yarely Wood PA Unavailable Unavailable NinaYarely richardson PA Unavailable Unavailable NinaYarely PA Unavailable Unavailable NniaYarely richardson PA Unavailable Unavailable Oneal, Wahib Unavailable Unavailable Oneal, Wahib Unavailable Unavailable Oneal, Wahib MD Unavailable Unavailable Oneal, Wahib MD Unavailable Unavailable Oneal, Wahib MD Unavailable Unavailable Oneal, Wahib MD Unavailable Unavailable Oneal, Wahib MD Unavailable Unavailable Oneal, Wahib MD Unavailable Unavailable Oneal, Wahib MD Unavailable Unavailable Oneal, Wahib MD Unavailable Unavailable Oneal, Wahib MD Unavailable Unavailable Oneal, Wahib MD Unavailable Unavailable Oneal, Wahib MD Unavailable Unavailable MD Tamir Price MD, MD MPH Unavailable MD Tamir Price MD, MD MPH Unavailable MD Tamir Price MD, MD MPH Unavailable MD Tamir Price MD, MD MPH Unavailable MD Tamir Price MD, MD MPH Unavailable MD Tamir Price MD, MD MPH Unavailable MD Tamir Price MD, MD MPH Unavailable MD Tamir Price MD, MD MPH Unavailable MD Tamir Price MD, MD MPH Unavailable MD Tamir Price MD, MD MPH Unavailable MD Tamir Price MD, MD MPH Unavailable MD Tamir Price MD, MD MPH Unavailable MD Tamir Price MD, MD MPH Unavailable MD Tamir Price MD, MD MPH Unavailable MD Tamir Price MD, MD MPH Unavailable MD Tamir Price MD, MD MPH Unavailable MD Tamir Price MD, MD MPH Unavailable MD Tamir Price MD, MD MPH Unavailable Re-disclosure Warning The records that you are about to access may contain information from federally-assisted alcohol or drug abuse programs. If such information is present, then the following federally mandated warning applies: This information has been disclosed to you from records protected by federal confidentiality rules (42 CFR part 2). The federal rules prohibit you from making any further disclosure of this information unless further disclosure is expressly permitted by the written consent of the person to whom it pertains or as otherwise permitted by 42 CFR part 2. A general authorization for the release of medical or other information is NOT sufficient for this purpose. The Federal rules restrict any use of the information to criminally investigate or prosecute any alcohol or drug abuse patient.The records that you are about to access may contain highly sensitive health information, the redisclosure of which is protected by Article 27-F of the [facility] Public Health law. If you continue you may have access to information: Regarding HIV / AIDS; Provided by facilities licensed or operated by the [facility] Office of Mental Health; or Provided by the [facility] Office for People With Developmental Disabilities. If such information is present, then the following [facility] mandated warning applies: This information has been disclosed to you from confidential records which are protected by state law. State law prohibits you from making any further disclosure of this information without the specific written consent of the person to whom it pertains, or as otherwise permitted by law. Any unauthorized further disclosure in violation of state law may result in a fine or retirement sentence or both. A general authorization for the release of medical or other information is NOT sufficient authorization for further disc losure. Encounters Encounter Providers Location Date Indications Data Source(s ) Outpatient Attender: [place] Office 04/2020 02:30:00 PM EST [facility] ([facility] Outpatient Attender: Camden No MD ER-CTCMEDON 04/28/2020 10:58:00 AM [facility] Outpatient Attender: Camden No MDReferrer: Librado MATHEW EMERGENCY ROOM-LABOTHPROV 04/21/2020 08:43:00 AM EST - 04/21/2020 08:43:00 AM [facility] Outpatient Attender: Jorge MATHEW [place] Office 02/2020 07:45:00 AM EST [facility] ([facility] Outpatient Attender: JAY GAYTAN MD [id number] 02/26/2020 12:00:00 AM [facility] Outpatient Attender: Jorge MATHEW [place] Office 02:20:00 PM EDT [facility] ([facility] Outpatient Attender: JAY GAYTAN MD [id number] 2019 12:00:00 AM EDT - 01/08/2020 02:08:58 PM EDT Trigger finger, right ring finger [facility] Trigger finger, right ring finger Outpatient Attender: Camden No MD 10/21/2019 12:46:00 PM [facility] Outpatient Attender: Camden No MD ER-RAD 10/16/2019 01:02:00 AM [facility] Outpatient Attender: Camden No MDReferrer: Chelly Rodriguez [facility] EMERGENCY ROOM-LABOTHPROV 10/14/2019 10:20:00 AM EDT - 10/14/2019 10:20:00 AM [facility] Outpatient Attender: Jessica MATHEW [place] Offi ce 09/05/2019 11:30:00 AM EDT [facility] ([facility] Outpatient Attender: Camden No MD ER-CTCMEDONC 08/05/2019 08:14:00 AM [facility] Preadmit Attender: Camden No MD 07/30/2019 03:33:00 PM [facility] Outpatient Attender: Camden No MD 07/23/2019 08:59:00 AM [facility] Outpatient Attender: Camden No MD 07/16/2019 09:09:00 AM [facility] Outpatient Attender: Camden No MD 07/09/2019 03:45:00 PM [facility] Outpatient Attender: Camden No MD 07/02/2019 02:50:00 PM [facility] Outpatient Attender: Camden No MD 06/25/2019 01:40:00 PM [facility] Outpatient Attender: Camden No MD 06/18/2019 01:51:00 PM [facility] Admission cancelled. Disregard status an d admitted date. Outpatient Attender: LISA MARY MDAttender: Camden corrales MD -CTCMEDON 06/18/2019 12:50:00 PM [facility] Outpatient Attender: TAMIR PRICE MD MPH 12/16/2018 08:32:00 AM [facility] Outpatient Attender: Tamir Price MDAttender: TAMIR PRICE MD MPH ER-RAD 12/09/2018 03:04:00 AM [facility] Outpatient Attender: TAMRI PRICE MD MPH 06/14/2018 11:22:00 AM [facility] Outpatient Attender: TAMIR PRICE MD MPHAttender: Tamir Price MD ER-RAD 11/29/2017 12:40:00 AM [facility] Immunizations Vaccine Date Status Description Data Source(s) New in 2012. IIV4 04/05/2020 02:44:00 PM EDT completed [facility] ([facility] Medications Medication Brand Name Start Date Product Form Dose Route Admi nistrative Instructions Pharmacy Instructions Status Indications Reaction Description Data Source(s) 2 % 07/13/2020 12:00:00 AM EST solution 100 TAKE 5ML BY MOUTH FOUR TIMES A DAY NEEDED FOR ABDOMINAL PAIN TAKE 5ML BY MOUTH FOUR TIMES A DAY NE EDED FOR ABDOMINAL PAIN SOLD: 07/13/2020 [facility] Sucralfate 1000 MG Oral Tablet [Carafate] Carafate 07/12/2020 1 2:00:00 AM EST ORAL active [facility] ([facility] ) 1 gram 07/12/2020 12:00:00 AM EST tablet 60 TAKE ONE TABLET BY MOUTH TWICE A DAY TAKE ONE TABLET BY MOUTH TWICE A DAY SOLD: 07/12/2020 [facility] Fluconazole 150 MG Oral Tablet [Diflucan] Diflucan 05/21/2020 1 2:00:00 AM EST ORAL completed [facility] ([facility] 150 mg 05/21/2020 12:00:00 AM EST tablet 2 TAKE ONE TABLET BY MOUTH TODAY FOLLOWED BY 1 TABLET IN ONE WEEK TAKE ONE TABLET BY MOUTH TODAY FOLLOWED BY 1 TABLET IN ONE WEEK SOLD: 07/28/2020 [facility] 150 mg 05/21/2020 12:00:00 AM EST tablet 2 TAKE ONE TABLET BY MOUTH TODAY FOLLOWED BY 1 TABLET IN ONE WEEK TAKE ONE TABLET BY MOUTH TODAY FOLLOWED BY 1 TABLET IN ONE WEEK SOLD: 05/21/2020 [facility] 150 mg 05/21/2020 12:00:00 AM EST tablet 2 TAKE ONE TABLET BY MOUTH TODAY FOLLOWED BY 1 TABLET IN ONE WEEK TAKE ONE TABLET BY MOUTH TODAY FOLLOWED BY 1 TABLET IN ONE WEEK SOLD: 06/19/2020 [facility] Famotidine 20 MG Oral Tablet FAMOTIDINE 04/19/2020 12:00:00 AM EST tab let 60 TAKE ONE TABLET BY MOUTH TWICE A DAY TAKE ONE TABLET BY MOUTH TWICE A DAY SOLD: 07/28/2020 [facility] 20 mg 04/19/2020 12:00:00 AM EST tablet 60 TAKE ONE TABLET BY MOUTH TWICE A DAY TAKE ONE TABLET BY MOUTH TWICE A DAY SOLD: 04/19/2020 [facility] Famotidine 20 MG Oral Tablet Famotidine 04/19/2020 12:00:00 AM EST ORAL active [facility] ([facility] 20 mg 04/19/2020 12:00:00 AM EST tablet 60 TAKE ONE TABLET BY MOUTH TWICE A DAY TAKE ONE TABLET BY MOUTH TWICE A DAY SOLD: 06/19/2020 [facility] 20 mg 04/19/2020 12:00:00 AM EST tablet 60 TAKE ONE TABLET BY MOUTH TWICE A DAY TAKE ONE TABLET BY MOUTH TWICE A DAY SOLD: 05/19/2020 [facility] 5-325 mg 02/09/2020 12:00:00 AM EDT tablet 20 TAKE ONE TO TWO TABLETS BY MOUTH EVERY 6 TO 8 HOURS NEEDED FOR PAIN MAXIMUM DAILY DOSE = 8 TAKE ONE TO TWO TABLETS BY MOUTH EVERY 6 TO 8 HOURS NEEDED FOR PAIN MAXIMUM DAILY DOSE = 8 SOLD: 02/09/2020 [facility] Fluconazole 150 MG Oral Tablet Fluconazole 09/05/2019 12:00:00 AM EDT ORAL completed [facility] ([facility] Amoxicillin 500 MG Oral Capsule Amoxicillin 09/05/2019 12:00:00 AM EDT completed [facility] ([facility] 500 mg 09/05/2019 12:00:00 AM EDT capsule 20 TAKE ONE CAPSULE BY MOUTH TWICE A DAY FOR 10 DAYS TAKE ONE CAPSULE BY MOUTH TWICE A DAY FOR 10 DAYS SOLD : 09/05/2019 [facility] 150 mg 09/05/2019 12:00:00 AM EDT tablet 2 TAKE 1 TABLET BY MOUTH FOLLWED BY 1 IN 10 DAYS DIRECTED TAKE 1 TABLET BY MOUTH FOLLWED BY 1 IN 1 0 DAYS DIRECTED SOLD: 09/05/2019 [facility] 150 mg 11/06/2018 12:00:00 AM EDT tablet 2 TAKE 1 TABLET BY MOUTH FOLLOWED BY 1 TABLET IN 1 WEEK TAKE 1 TABLET BY MOUTH FOLLOWED BY 1 TABLET IN 1 WEEK SOLD: 09/22/2019 [facility] Insurance Providers Payer name Policy type / Coverage type Policy ID Covered democrat ID Covered democrat's relationship to al Policy Al Plan Information UMR [facility] [id number] SP [id number] MEDICARE [id number] SP [id number] [id number] UMR [id number] S [id number] MCRB [id number] S [id number] [id number] MEDICARE [id number] S [id number] F67 UMR O [id number] S [id number] MEDICARE C [id number] S [id number] F67 UMR O UNAVAILABLE S UNAVAILA BLE MEDICARE C UNAVAILABLE S UNAVAILA BLE UMR [id number] S [id number] [facility] MEDICARE DIVISION [id number] S [id number] [place]ICARE [place] [id number] S [id number] UMR U [id number] Self [id number] MEDICARE A [id number] Self [id number] [id number] UMR U [id number] Self [id number] MEDICARE A [id number] Self [id number] F67 UMR [id number] S [id number] MCRB [id number] S [id number] [id number] UMR [id number] S [id number] [facility] [id number] S [id number] MEDICARE [id number] S [id number] A MCRB [id number] S [id number] A MCRB [id number] S [id number] A UMR -O/P [id number] 18 [id number] MEDICARE PART A -O/P [id number] 18 [id number] [facility] PI PI MEDICARE PI PI MEDICARE [id number] Vikki [id number] F67 [employer] [id number] Vikki [id number] MEDICARE [id number] Vikki [id number] A [facility] [id number] Vikki [id number] [facility] [id number] S [id number] MEDICARE [id number] S [id number] A [place] [id number] S [id number] MCRB [id number] S [id number] A [employer] [id number] SP [id number] MEDICARE [id number] SP [id number] A [employer] [id number] SP [id number] MEDICARE [id number] SP [id number] A [employer] [id number] SP [id number] [employer] [id number] SP [id number] MEDICARE PART A -O/P [id number] 18 [id number] [employer]-O/P [id number] 18 [id number] [employer]-O/P UNAVAILABLE UNAVAILA BLE [facility] [id number] SP [id number] MEDICARE [id number] SP [id number] A [place] (pr) Medigap Part B Self Medicare [employer] [employer] Primary Self MEDICARE [id number] SP [id number] A [id number] Problems, Conditions, and Diagnoses Code Display Name Description Problem Type Effective Dates Data Source(s) Z85.048 Personal history of other ma lignant neoplasm of rectum, rectosigmoid junction, and anus PRSNL HX OF MALIG NEOPLM OF RECTUM, RECTOSIG JUNCT Diagnosis 04/28/2020 10:58:00 AM [facility] Z98.84 Bariatric surgery status BARIATRIC SURGERY STATUS Diag nosis 04/28/2020 10:58:00 AM [facility] K90.9 Intestinal malabsorption, unspecified IN TESTINAL MALABSORPTION, UNSPECIFIED Diagnosis 04/28/2020 10:58:00 AM [facility] D50.9 Iron deficiency anemia, unspecified IRON DEFICIE NCY ANEMIA, UNSPECIFIED Diagnosis 04/28/2020 10:58:00 AM [facility] R50.9 Fever, unspecified FEVER, UNSPECIFIED Diagnosis 04/2020 08:43:00 AM [facility] E55.9 Vitamin D deficiency, unspecified VITAMIN D DEFI CIENCY, UNSPECIFIED Diagnosis 04/21/2020 08:43:00 AM [facility] D50.9 Iron deficiency anemia, unspecified IRON DEFICIE NCY ANEMIA, UNSPECIFIED Diagnosis 04/21/2020 08:43:00 AM [facility] R53.83 Other fatigue OTHER FATIGUE Diagnosis 04/21/2020 08:43:00 AM [facility] 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 Diagnosis 04/21/2020 08:43:00 AM [facility] M65.341 Trigger finger, right ring finger Trigger finger , right ring finger Diagnosis 01/08/2020 01:10:20 PM [facility] 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 ACQUIRED ABSENCE OF OTHER SPECIFIED PARTS OF DIGES Diagnosis 10/21/2019 09:39:0 0 AM [facility] K52.3 INDETERMINATE COLITIS INDETERMINATE COLITIS Diagnosis 10/21/2019 09:39:00 AM [facility] R53.83 Other fatigue OTHER FATIGUE Diagnosis 10/16/2019 01:02:00 AM [facility] C20 Malignant neoplasm of rectum C20 Diagnosis 020 01:02:00 AM [facility] Surgeries/Procedures Procedure Description Date Indications Data Source(s) Electrocardiogram Complete 02/02/2020 12:00:00 AM EDT [facility] ([facility] Results ID Date Data Source [id number] 07/31/2020 10:00:00 AM [facility] Name Value Range Interpretation Code Description Data Salome rce(s) Supporting Document(s) SARS coronavirus 2 RNA Not Detected [facility] This lab was ordered by [facility] and reported by [facility]. ID Date Data Source [id number] 07/13/2020 01:28:00 PM EST [facility] Name Value Range Interpretation Code Description Data Salome rce(s) Supporting Document(s) Thyrotropin [Units/volume] in Serum or Plasma 1.060 uIU/ML 0. 358-3.740 Normal (applies to non-numeric results) [facility] ([facility] Lipoprotein lipase [Enzymatic activity/volume] in Serum or Plasm a 84 U/L 73-393 Normal (applies to non-numeric results) [facility] ([facility] ID Date Data Source [id number] 07/13/2020 01:28:00 PM EST [facility] ([facility] Name Value Range Interpretation Code Description Data Salome rce(s) Supporting Document(s) Blood Urea Nitrogen 17 mg/dL 7-18 Normal (applies to non-nume adriana results) [facility] ([facility] Creatinine For GFR 0.53 mg/dL 0.55-1.30 Below low normal [facility] ([facility] Glucose, Fasting 91 mg/dL 70-100 Normal (applies to non-numeric results) [facility] ([facility] Glomerular Filtration Rate Laboratory test result Normal (applies to non- numeric results) [facility] ([facility] ) <content>Units are mL/min/1.73 m2</content>
<content></content>
<content>Chronic Kidney Disease Staging per NKF:</content>
<content></content>
<content>Stage I & II GFR >=60 Normal to Mildly Decreased</content>
<content>Stage III GFR 30-59 Moderately Decreased</content>
<content>Stage IV GFR 15-29 Severely Decreased</content>
<content>Stage V GFR <15 Very Little GFR Left</content>
<content>ESRD GFR <15 on TEAM CDL DRIVER</content>
<content></content> Chloride Level 102 meq/L 98-107 Normal (applies to non-numeric r esults) [facility] ([facility] Sodium Level 138 meq/L 136-145 Normal (applies to non-numeric res ults) [facility] ([facility] Potassium Serum 4.0 meq/L 3.5-5.1 Normal (applies to non-numeric results) [facility] ([facility] Carbon Dioxide Level 28 meq/L 21-32 Normal (applies to non-num maegan results) [facility] ([facility] Calcium Level 9.3 mg/dL 8.8-10.2 Normal (applies to non-numeric re sults) [facility] ([facility] Anion Gap 8 meq/L 8-16 Normal (applies to non-numeric resul ts) [facility] ([facility] ID Date Data Source [id number] 07/13/2020 01:28:00 PM EST [facility] ([facility] Name Value Range Interpretation Code Description Data Salome rce(s) Supporting Document(s) Alt/SGPT 11 U/L 12-78 Below low normal [facility] ( [facility] Alkaline Phosphatase 76 U/L 45-117 Normal (applies to non-num maegan results) [facility] ([facility] Ast/Sgot 15 U/L 7-37 Normal (applies to non-numeric resul ts) [facility] ([facility] Albumin 3.9 GM/DL 3.2-5.2 Normal (applies to non-numeric resul ts) [facility] ([facility] Total Protein 7.0 GM/DL 6.4-8.2 Normal (applies to non-numeric re sults) [facility] ([facility] Bilirubin,Direct 0.2 mg/dL 0.0-0.2 Normal (applies to non-numeric results) [facility] ([facility] Bilirubin,Total 0.4 mg/dL 0.2-1.0 Normal (applies to non-numeric results) [facility] ([facility] Albumin/Globulin Ratio 1.3 1.2-2.2 Normal (applies to non-n umeric results) [facility] ([facility] ID Date Data Source [id number] 07/13/2020 01:28:00 PM EST [facility] ([facility] Name Value Range Interpretation Code Description Data Salome rce(s) Supporting Document(s) CPK Creatine Phosphokinase 36 U/L 26-192 Nelli l (applies to non-numeric results) [facility] ( [facility] ) CK-MB Value Mass Laboratory test result Normal ( applies to non-numeric results) [facility] ([facility] ) Troponin I Laboratory test result Normal (applies to non-n umeric results) [facility] ([facility] <content>Troponin I Reference Interval f or Siemens [place] LOCI:</content>
<content></content>
<content>99th Percentile= 0.00-0.045 ng/ml</content>
<content></content>
<content>Risk Stratification:</content>
<content><= 0.10 ng/ml Decreased Risk for Adverse Clinical</content>
<content>Events.</content>
<content>0.10-1.50 ng/ml Increased Risk for Adverse Clinical</content>
<content>Events. Evaluation of additional</content>
<content>criterion and/or repeat testing in 2-6</content>
<content>hours is suggested to rule out myocardial</content>
<content>damage.</content>
<content>>= 1.50 ng/ml Indicative of Myocardial Injury.</content>
<content></content> MB/CK Relative Index 2.78 Normal (applies to non-num maegan results) [facility] ([facility] <content>DIAGNOSIS CRITERIA</content>
<content>MMB ng/ml Relative Index (RI)</content>
<content>NON-AMI < or = 5 N/A</content>
<content>KRUEGER ZONE > 5 < or = 4</content>
<content>AMI > 5 > 4</content>
<content></content> ID Date Data Source [id number] 07/13/2020 01:28:00 PM EST [facility] ([facility] Name Value Range Interpretation Code Description Data Salome rce(s) Supporting Document(s) White Blood Count 7.1 10 4.0-10.0 Normal (applies to non-numeri c results) [facility] ([facility] Red Blood Count 4.52 10 4.00-5.40 Normal (applies to non-numeric results) [facility] ([facility] Hemoglobin 13.5 g/dL 12.0-15.5 Normal (applies to non-numeric resul ts) [facility] ([facility] Mean Corpuscular HGB Conc 33.3 g/dL 32.0-36.5 Normal (applies to non-numeric results) [facility] ([facility] ) Hematocrit 40.6 % 36.0-47.0 Normal (applies to non-numeric resul ts) [facility] ([facility] Mean Corpuscular Hemoglobin 29.9 pg 27.0-33.0 Norm al (applies to non-numeric results) [facility] ([facility] ) Mean Corpuscular Volume 89.8 fl 80.0-96.0 Normal ( applies to non-numeric results) [facility] ([facility] ) Neutrophils % 78.7 % 36.0-66.0 Above high normal [facility] ([facility] Red Cell Distribution Width 14.0 % 11.5-14.5 Norm al (applies to non-numeric results) [facility] ([facility] ) Platelet Count, Automated 234 10 150-450 Normal (applies to non-numeric results) [facility] ([facility] ) Lymph % 13.2 % 24.0-44.0 Below low normal [facility] ( [facility] Eos % 0.6 % 0.0-3.0 Normal (applies to non-numeric resul ts) [facility] ([facility] Pepin % 6.7 % 0.0-5.0 Above high normal [facility] ([facility] Immature Granulocyte % 0.4 % 0-3.0 Normal (applies to non-n umeric results) [facility] ([facility] Nucleated Red Blood Cell % 0.0 % 0-0 Normal (applies to n on-numeric results) [facility] ([facility] Baso % 0.4 % 0.0-1.0 Normal (applies to non-numeric resul ts) [facility] ([facility] Pepin # 0.5 10 0.0-0.8 Normal (applies to non-numeric resul ts) [facility] ([facility] Eos # 0.0 10 0.0-0.5 Normal (applies to non-numeric resul ts) [facility] ([facility] Lymph # 0.9 10 1.5-5.0 Below low normal [facility] ( [facility] Neutrophils # 5.6 10 1.5-8.5 Normal (applies to non-numeric re sults) [facility] ([facility] Baso # 0.0 10 0.0-0.2 Normal (applies to non-numeric resul ts) [facility] ([facility] ID Date Data Source [id number] 05/28/2020 12:00:00 AM EST [facility] Patient Name: ARON GRANT [id number] [facility] Date of : 1950[place] [address] Date of Exam: 05/28/2020#: Fax: [phone] EXAM: UGI AIR CONTRAST WITH SBFTCLINICAL INFORMATION: Nausea and epigastric pain.The procedure was performed by Freddie Hylton [facility], under the directsupervision of Dr. Krueger. All images were reviewed with Dr. Krueger at thetime of this dictation.The gum maker films shows no organomegaly or pathological masses. Theintestinal gas pattern is nonspecific. There are surgical clips noted inthe epigastric region consistent with the patient's history of gastricbypass. There are multiple surgical clips noted in the pelvis.Liquid barium and gas producing granules were given in the erect positionas well as liquid barium in the prone oblique position in order to performa single contrast upper GI examination. Additionally, liquid barium wasgiven at the end of the examination in order to perform a small bowelfollow through.The oral and pharyngeal stages of deglutition appeared unremarkable.Esophageal transport was prompt and efficient and there was no esophagitis,stricture or mucosal ring. There is a fixed hiatal hernia. This isunchanged compared to the previous study dated 10/19/2011. Gastroesophagealis not demonstrated on this examination.There are post surgical changes of the stomach consistent with thepatient's history of gastric bypass. There are no diverticula seen in thegastric pouch. These have increased in size compared to the previous exam. There is no evidence of gastritic, neoplasm or ulcer disease. There isfree flow of contrast through the anastomosis. There is no evidence ofstricture or obstruction.The visualized portion of the proximal small bowel was normal in course andcaliber.The barium column was followed through the small bowel to the level of theterminal ileum. Small bowel transit time is approximately 30 minutes.During fluoroscopy, gentle palpation shows all loops are freely movable andpliable. There are no fixed or angulated loops. The small bowel mucosalpattern was normal in course and caliber. There was no transition tosuggest a partial small bowel obstruction. There are a few jejunaldiverticula identified. Spot filming of the terminal ileum showed it bernardo within normal limits.IMPRESSION:1. There is a fixed hiatal hernia which is unchanged compared to theprevious study dated 10/19/2011.2. In t he gastric pouch, there are two diverticula which have increased insize compared to the previous study.3. There are a few jejunal diverticula identified.Dictated by: Freddie Hylton [facility], with Dr. Krueger.Fluoroscopy time was 195 seconds at 15 pulses/second. This is equal to 2minutes 10 seconds continuous fluoroscopy time which is a 33% reduction inradiation.FLOWER Luna/Anita you for referring ARON CHOIS to our office. Electronically Signed - BRENDA KRUEGER MD 05/28/20 16:38 Name Value Range Interpretation Code Description Data Salome rce(s) Supporting Document(s) ID Date Data Source [id number] 05/25/2020 10:40:00 PM [facility] XIN GillRob [address] [id number] FOLLOW UP NOTENAME: ARON GRANT MPHYSICIAN: SHEILA PORTILLOATE OF SERVICE: 04/28/20DATE OF : [birth year]ACCOUNT #: [id number]: ARON Lemus TAMMIEISDate: Apr 28, 2020DOB: 1950Physician: Michelle Price M.D., M.P.H.M.D.Dr. 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 Gomez on 09/06/2015. Pathologic stage [id number]. S/preversal of ileostomy and anastomosisIDA in the setting of gastric bypass, received venofer in February 2016fatigueHistory of Present Illness:Pt has no acute events occur since last visit. SHe is feeling well, no fever,no chills , no night sweats, no nausea, no vomiting, iBD symptoms chronicallypresent. She denies blood bm, denies bloody urine. She denies cp, sob,syncopal episodes, loc, dizzinesss, palpitations, decreased activities.HER CT imaging was negative for acute findings. Her lab work was reviewed andshe was not iron deficient, b12 and vitamin d stores adequate.Past Medical History:ArthritisFibromyalgiaGastroesophageal reflux diseaseIron deficiency anemiaIrritable bowel syndromeRectal cancerSinus infectionsPast Surgical History:AppendectomyColonoscopyColostomyGastric bypassTubal ligationColostomy reversal in 2016Low anterior resection and loop ileostomy in 2016Allergies:sulfaCurrent Medications:Biotin 1 Tablet Capsule Oral daily (Start Date - unknown)Colace 3 Capsule Oral daily PRN (Start Date - unknown)Diphenoxylate-Atropine 2.5 mg (of 2.5-0.025 mg) Tablet Oral daily PRN (StartDate - unknown)Hydrocortisone Pedro-Pramoxine Cream Rectal PRN (Start Date - unknown)Methenamine Hippurate 1 G Tablet Oral daily (Start Date - unknown)Multivitamins 1 Tablet Capsule Oral daily (Start Date - unknown)Omeprazole-Sodium Bicarbonate 1 Capsule (of 20-1100 mg) Oral daily (Start Date- unknown)Vitamin B12 1,000 mcg Tablet Oral daily (Start Date - unknown)Vitamin D 1 Tablet Oral daily (Start Date - unknown)Social History:Ms. GRANT is . Ms. GRANT quit smoking 30 years ago but had smoked 1.0pack/day for 15 years. She has indicated exposure to the following products: noiv drug use.Social alcohol use, 1 drink per month. Retired hairdresser and schoolsecretary.Family History:Ms. GRANT's mother at age 79: of myocardial infarction, hx of basalcell CA of skin. Ms. GRANT's father at age 59: of lung cancer. has 2 sisters: 1 alive, 1 . Ms. GRANT's first sister's stage ivmalignant melanoma. Another sister's - of breast cancer, dx age 58.Review of Systems:ConstitutionalAbnormal - fatigueimproved with IRON but returned after one week after iron therapy completed.EyesAbnormal - No significant visual difficulties. No diplopia. Wears glasses forreading.ENMTNormal - No problems with hearing, no sore throat, no sinus drainage.EndocrineNormal - No diabetes, thyroid disease or hormone replacement. No hot flashesor night sweats.Hematologic/LymphaticNormal - No easy bruising or bleeding. The patient denies any tender orpalpable lymph nodes.BreastsNormal - No abnormal masses of breast, no nipple discharge or pain.RespiratoryNormal - No dyspnea on exertion, chest pain, cough or hemoptysis.CardiovascularNormal - No anginal chest pain, palpitations or orthopnea.GastrointestinalAbnormal - diarrhea fluctuating with constipationGenitourinary (F)Normal - No hematuria, vaginal bleeding, discharge or other problems withurination.MusculoskeletalAbnormal - Chronic joint pain to knees and back.IntegumentaryNormal - No chronic rashes, inflammation, ulcerations or skin changes.NeurologicAbnormal - No headache, blurred vision, and no areas of focal weakness.Numbness to right foot, mainly at night.PsychiatricNormal - No insomnia, depression, theo or mood swings.Vital Signs:Performed on Apr 28, 2020 11:64Doraop06.00 ktQoqlie958.4 lbs(LOW)BSA (derived)1.88 sq.mBMI29.97Whrcmpupgkl50.6 TRopmg41 /drcOfgyhtsjmia39 /rerRE209/70Pulse Oximetry (O2 Sat)98 %Fall RiskLow RiskPerformance Status:1 - No physically strenuous activity, but ambulatory and able to carry outlight or sedentary work (e.g. office work, light house work). (ECOG)Physical Exam:ConstitutionalNormal - Alert, cooperative, oriented. Mood and affect appropriate. Appearsclose to chronological age. Well nourished. Well developed.EyesNormal - Conjunctivae and sclerae are clear and without icterus. Pupils arereactive and equal.ENMTNormal - No oral exudates, ulcers, masses, thrush or mucositis. Oropharynxclear. Tongue normal.NeckNormal - Supple.Hematologic/LymphaticNormal - No tender or palpable lymph nodes in the cervical, supraclavicular,or axillary area.RespiratoryNormal - Lungs are clear to auscultation without wheezing, rales or rhonchi.CardiovascularNormal - Regular rate and rhythm of heart without murmurs, gallops or rubs.AbdomenNormal - Non-tender and non-distended. Vertical incision from LAR wellhealed.Back/SpineNormal - Non-tender to palpation.ExtremitiesNormal - No pitting edema. Peripheral pulses palpable. No calf tenderness.MusculoskeletalNormal - No tenderness or swelling, normal range of motion without obviousweakness.NeurologicNormal - Grossly non- focal.PsychiatricNormal - Alert and oriented times three. Coherent speech. Verbalizesunderstanding of our discussions today.Laboratory:Test performed on Aug 05, 2019 09:76Ruvuwiab755.7 ng/mKQasp525 ug/nERkxsfx964 mmol/LVitamin Z55922.0 pg/mLVitamin D (25-Hydroxy), Total36 ng/mLIron Binding Capacity (TIBC)315.0 ug/dLPotassium4.1 mmol/MBmzconrc774 mmol/AMAMD000 ug/dL% Iron Nvmopkucrl98.0 %CO229 mmol/LAnion Gap11.1BUN19 mg/dLCreatinine0.573 mg/dLCr Clearance (Est)122.7300 mL/mineGFR> 60 mL/qepGgfgkqq03 mg/dLCalcium9.3 mg/dLProtein, Total7.1 g/dLAlbumin4.0 g/dLGlobulin3.1 g/dLA/G Ratio1.3Bilirubin, Total0.5 mg/dLALT (SGPT)13 U/LAST (SGOT)17 U/LAlkaline Ofqgtmckaip53 U/LWBC5.44 x10E3/uLRBC4.32 x10E6/uLHGB12.8 g/dLHCT38.8 %MCV89.8 fLMCH29.6 mkVOZE63.0 g/dLRDW13.9 %Platelet Mrodz015 x10E3/uLMPV9.6 fl(HIGH)Neutrophils3.5 x10E3/uLLymphocytes1.3 x10E3/uLMonocytes0.4 x10E3/uLEosinophils0.1 x10E3/uLBasophils0.1 x10E3/uLImmature Grans0.0 x10E3/uLNeutrophil %64.4 %(HIGH)Lymphocyte %24.4 %(LOW)Monocyte %8.1 %Eosinophil %2.0 %Basophils %0.9 %Immature Grans %0.2 %Test performed on Jun 18, 2019 14:12LDH (Total)172 U/LT4, Free0.81 ng/dLTSH, Ultrasensitive1.330 uIU/mLOther test results are not available for this patient.Impression:iron deficiency secondary to kcrndpnzikzwdf5vq rectal ca; s/p surgical resection 2016hx of gastric bypasschronic fatigue not improved with iv iron.Iron stores, b12 and cbc all wnl in april 2020.Plan:cea q6 months;will obtain one now and then in six monthscolonoscopy due in t imaging in one yearf/u for history and physical in six months.Electronically signed by:Dr. Camden No[facility]: Name Value Range Interpretation Code Description Data Salome rce(s) Supporting Document(s) ID Date Data Source [id number] 05/25/2020 12:00:00 AM EST [facility] Name Value Range Interpretation Code Description Data Salome rce(s) Supporting Document(s) SARS-CoV2 Rapid Antigen [facility] This lab was ordered by [facility] and reported by [facility]. ID Date Data Source [id number] 05/21/2020 03:47:00 PM EST [facility] ([facility] Name Value Range Interpretation Code Description Data Salome rce(s) Supporting Document(s) Urine Culture, Routine Laboratory test result Ab normal (applies to non-numeric results) [facility] ([facility] SRC:URINE Antimicrobial Susceptibility Laboratory test result [facility] ([facility] SRC:URINE Bacteria identified in Urine by Culture Laboratory test result Abnormal (applies to non-numeric results) [facility] ([facility] SRC:URINE ID Date Data Source [id number] 05/21/2020 03:46:00 PM EST [facility] ([facility] Name Value Range Interpretation Code Description Data Salome rce(s) Supporting Document(s) Color Urine Laboratory test result M [facility] ([facility] Specific Crouse 1.030 1.00-1.03 [facility] ([facility] PH Urine 5.0 5.0-8.0 [facility] Appearance of Urine Laboratory test result [facility] ([facility] Glucose Urine Laboratory test result [facility] ([facility] Bilirubin.total [Presence] in Urine by Test strip Laboratory natalie t result Above high normal [facility] ([facility] ) Ketones Laboratory test result Above high normal [facility] ([facility] Urobilinogen 2.0 EU/dl 0.2-1.0 Above high normal [facility] ([facility] Blood Urine Laboratory test result Above high normal [facility] ([facility] Protein Urine 0.2 Above high normal [facility] ([facility] Nitrite Laboratory test result [facility] ([facility] Leukocytes Laboratory test result ME [facility] ([facility] ID Date Data Source [id number] 04/21/2020 08:54:00 AM EST [facility] ([facility] Name Value Range Interpretation Code Description Data Salome rce(s) Supporting Document(s) Vitamin D, 25-Hydroxy 25.5 ng/mL 30.0-100.0 Below low normal [facility] ([facility] Vitamin D deficiency has been defined by the [place] of Medicine and an Endocrine Society practice guideline as a level of serum 25-OH vitamin D less than 20 ng/mL (1,2). The Endocrine Society went on to further define vitamin D insufficiency as a level between 21 and 29 ng/mL (2). 1. IOM ([place] of Medicine). 2010. Di etary reference intakes for calcium and D. [place]: The National Academies Press. 2. Hanna MF, [place], Joao norris PISANO, et al. Evaluation, treatment, and prevention of vitamin D deficiency: an Endocrine Society clinical practice guideline. JCEM. 2010; 96(7):1911-30. Iron [Mass/volume] in Serum or Plasma 75 ug/dL 50-170 [facility] ([facility] Iron binding capacity [Mass/volume] in Serum or Plasma 236 ug/dL 250-450 Below low normal [facility] ([facility] ) Cea 1.5 ng/mL 0.0-4.7 [facility] <content>Nonsmokers <3.9</kylee nt>
<content>Smokers <5.6</content>
<content>[employer] Electrochemiluminescence Immunoassay</content>
<content>(ECLIA)</content>
<content>Values obtained with different assay methods or kits</content>
<content>cannot be used interchangeably. Results cannot be</content>
<content>interpreted as absolute evidence of the presence or</content>
<content>absence of malignant disease.</content>
<content>Performed at: [facility]</content>
<content>[address] [place] [phone]</content>
<content>Cut Out Worker: Lelo Mtz MD, Phone: [phone]</content>
<content></content> Ferritin [Mass/volume] in Serum or Plasma 144 ng/mL 8-252 [facility] ([facility] Cobalamin (Vitamin B12) [Mass/volume] in Serum or Plasma 617 pg/mL 2 32-1245 [facility] ([facility] Performed at: [facility] [address] [id number] Cut Out Worker: Lelo Mtz MD, Phone: [phone] ID Date Data Source [id number] 04/21/2020 08:54:00 AM EST [facility] ([facility] Name Value Range Interpretation Code Description Data Salome rce(s) Supporting Document(s) Glu 90 mg/dL 74-106 [facility] BUN 13 mg/dL 7-18 [facility] Cre 0.7 mg/dL 0.6-1.0 [facility] Na 143 mmol/L 136-145 [facility] K 4.4 mmol/L 3.5-5.1 [facility] CL 102 mmol/L 98-107 [facility] ([facility] [facility] CA 9.6 mg/dL 8.5-10.1 [facility] Gap 12.0 mmol/L 5-12 [facility] GFR 82 mL/min [facility] <content>GFR IS CALCULATED IN mL/min/1.73m2</content>
<content></content>
<content>NORMAL FUNCTION: >90</content>
<content>MILDLY DECREASED: 60-89</content>
<content>MILDY TO MODERATELY DECREASED: 45-59</content>
<content>MODERATELY TO SEVERELY DECREASED: 30-44</content>
<content>SEVERELY DECREASED: 15- 29</content>
<content>RENAL FAILURE: <15</content>
<content></content> Co2 29 mmol/L 21-32 [facility] Alt 7 U/L 12-78 Below low normal [facility] Ast 14 U/L 15-37 Below low normal [facility] Alk 84 U/L 46-116 [facility] Alb 3.6 gm/dL 3.4-5.0 [facility] Tbili 0.4 mg/dL 0.2-1.0 [facility] TP 7.0 g/dL 6.4-8.2 [facility] ID Date Data Source [id number] 04/21/2020 08:54:00 AM EST [facility] Name Value Range Interpretation Code Description Data Salome rce(s) Supporting Document(s) WBC 5.5 K/mm3 4.0-10.0 [facility] HGB 12.6 gm/dL 12.0-16.0 [facility] RBC 4.28 M/mm3 4.00-5.50 [facility] HCT 39.0 % 36.0-48.8 [facility] ([facility] MCV 91.1 fl 80-96 [facility] MCH 29.4 pg 27.0-31.0 [facility] MCHC 32.3 g/dL 32.0-36.0 [facility] RDW 12.8 % 10.0-14.5 [facility] MPV 9.3 fl 9.0-13.0 [facility] PLT 286 K/mm3 172-450 [facility] GR% 70.7 % 50-80.0 [facility] Mo% 7.3 % 2.0-10.0 [facility] Eo% 2.6 % 0-5.0 [facility] Ly% 18.5 % 25.0-50.0 Below low normal [facility] ( [facility] Laboratory test finding (navigational concept) 0.2 % 0.0-0.2 [facility] ([facility] GR# 3.9 K/mm3 2.0-8.00 [facility] Ba% 0.7 % 0.0-2.0 [facility] Laboratory test finding (navigational concept) 0.0 K/mm3 0.0-0.2 [facility] ([facility] Ly# 1.0 K/mm3 1.0-5.0 [facility] Eo# 0.1 K/mm3 0.0-0.5 [facility] Mo# 0.4 K/mm3 0.10-1.20 [facility] Ba# 0.0 K/mm3 0.0-0.2 [facility] ([facility] ID Date Data Source [id number] 04/22/2020 06:05:00 AM EST [facility] Name Value Range Interpretation Code Description Data Salome rce(s) Supporting Document(s) Vitamin D, 25-Hydroxy 25.5 ng/mL 30.0-100.0 Below low normal [facility] Vitamin D deficiency has been defined by the [place] ofMedicine and an Endocrine Society practice guideline as alevel of serum 25-OH vitamin D less than 20 ng/mL (1,2).The Endocrine Society went on to further define vitamin Dinsufficiency as a level between 21 and 29 ng/mL (2).1. IOM ([place] of Medicine). 2010. Dietary reference intakes for calcium and D. [place]: The National Academies Press.2. Hanna MF, [place], Rinku PISANO, et al. Evaluation, treatment, and prevention of vitamin D deficiency: an Endocrine Society clinical practice guideline. JCEM. 2010; 96(7):1911-30. ID Date Data Source [id number] 04/22/2020 08:07:00 AM EST [facility] Name Value Range Interpretation Code Description Data Salome rce(s) Supporting Document(s) CEA 1.5 ng/mL 0.0-4.7 [facility] Nonsmokers <3.9 Smokers <5.6 [facility] Electrochemiluminescence Immunoassay (ECLIA) Values obtained with different assay methods or kits cannot be used interchangeably. Results cannot be interpreted as absolut e evidence of the presence or absence of malignant disease. ID Date Data Source [id number] 04/22/2020 06:05:00 AM EST [facility] Name Value Range Interpretation Code Description Data Salome rce(s) Supporting Document(s) Vitamin B12 617 pg/mL [id number] [facility] ID Date Data Source [id number] 04/22/2020 08:06:00 AM [facility] l Name Value Range Interpretation Code Description Data Salmoe rce(s) Supporting Document(s) CEA 1.5 ng/mL 0.0-4.7 [facility] Nonsmokers <3.9 Smokers <5.6[facility] Electrochemiluminescence Immunoassay(ECLIA)Values obtained with different assay methods or kitscannot be used interchangeably. Results cannot beinterpreted as absolute evidence of the presence orabsence of malignant disease.Performed at: RN - [facility] [address] [id number] Director: Lelo Mtz MD, Phone: [phone] ID Date Data Source [id number] 04/22/2020 06:07:00 AM [facility] Name Value Range Interpretation Code Description Data Salome rce(s) Supporting Document(s) VITAMIN D, 25-HYDROXY 25.5 ng/mL 30.0-100.0 [facility] Vitamin D deficiency has been defined by the [place] ofMedicine and an Endocrine Society practice guideline as alevel of serum 25-OH vitamin D less than 20 ng/mL (1,2).The Endocrine Society went on to further define vitamin Dinsufficiency as a level between 21 and 29 ng/mL (2).1. IOM ([place] of Medicine). 2010. Dietary reference intakes for calcium and D. [place]: The National Academies Press.2. Hanna MF, [place], Rinku PISANO, et al. Evaluation, treatment, and prevention of vitamin D deficiency: an Endocrine Society clinical practice guideline. JCEM. 2010; 96(7):1911-30. ID Date Data Source [id number] 04/22/2020 06:07:00 AM [facility] l Name Value Range Interpretation Code Description Data Salome rce(s) Supporting Document(s) VITAMIN B12 617 pg/mL [id number] [facility] Performed at: RN - [facility] [id number] [place], [place] [id number] Director: Lelo Mtz MD, Phone: [phone] ID Date Data Source [id number] 04/22/2020 07:47:00 AM [facility] l Name Value Range Interpretation Code Description Data Salome rce(s) Supporting Document(s) FERRITIN 144 ng/mL 8-252 [facility] ID Date Data Source [id number] 04/21/2020 09:56:00 AM [facility] Name Value Range Interpretation Code Description Data Salome rce(s) Supporting Document(s) TIBC 236 ug/dL 250-450 L [facility] ID Date Data Source [id number] 04/21/2020 09:56:00 AM [facility] l Name Value Range Interpretation Code Description Data Salome rce(s) Supporting Document(s) IRON 75 ug/dL 50-170 [facility] ID Date Data Source [id number] 04/21/2020 09:56:00 AM [facility] l Name Value Range Interpretation Code Description Data Salome rce(s) Supporting Document(s) GLUCOSE 90 mg/dL 74-106 [facility] BLOOD UREA NITROGEN 13 mg/dL 7-18 [facility] ital CREATININE 0.7 mg/dL 0.6-1.0 [facility] SODIUM 143 mmol/L 136-145 [facility] POTASSIUM 4.4 mmol/L 3.5-5.1 [facility] CHLORIDE 102 mmol/L 98-107 [facility] CO2 29 mmol/L 21-32 [facility] CALCIUM 9.6 mg/dL 8.5-10.1 [facility] ANION GAP 12.0 mmol/L 5-12 [facility] GLOMERULAR FILTRATION RATE 82 mL/min [facility] GFR IS CALCULATED IN mL/min/1.73m2 NELLI L FUNCTION: >90MILDLY DECREASED: 60-89MILDY TO MODERATELY DECREASED: 45-59 MODERATELY TO SEVERELY DECREASED: 30-44SEVERELY DECREASED: 15-29RENAL FAILURE: <15 AST 14 U/L 15-37 L [facility] ALT 7 U/L 12-78 L [facility] ALKALINE PHOSPHATASE 84 U/L 46-116 [facility] pital TOTAL BILIRUBIN 0.4 mg/dL 0.2-1.0 [facility] TOTAL PROTEIN 7.0 g/dl 6.4-8.2 [facility] ALBUMIN 3.6 gm/dL 3.4-5.0 [facility] ID Date Data Source [id number] 04/21/2020 09:10:00 AM [facility] l Name Value Range Interpretation Code Description Data Salome rce(s) Supporting Document(s) WHITE BLOOD COUNT 5.5 K/mm3 4.0-10.0 [facility]LOOD COUNT 4.28 M/mm3 4.00-5.50 [facility] l HEMOGLOBIN 12.6 gm/dL 12.0-16.0 [facility] HEMATOCRIT 39.0 % 36.0-48.8 [facility] MEAN CELL VOLUME 91.1 fl 80-96 [facility] MEAN CORPUSCULAR HEMOGLOBIN 29.4 pg 27.0-31.0 [facility] MEAN CORPUSCULAR HGB CONC 32.3 g/dl 32.0-36.0 [facility] RED CELL DISTRIBUTION WIDTH 12.8 % 10.0-14.5 [facility] PLATELET COUNT 286 K/mm3 172-450 [facility] MEAN PLATELET VOLUME 9.3 fl 9.0-13.0 [facility] pital GRAN % 70.7 % 50-80.0 [facility] IG% 0.2 % 0.0-0.2 [facility] LYMPH % 18.5 % 25.0-50.0 L [facility] MONO % 7.3 % 2.0-10.0 [facility] EOS % 2.6 % 0-5.0 [facility] BASO % 0.7 % 0.0-2.0 [facility] GRAN # 3.9 K/mm3 2.0-8.00 [facility] IG# 0.0 K/mm3 0.0-0.2 [facility] LYMPH # 1.0 K/mm3 1.0-5.0 [facility] MONO # 0.4 K/mm3 0.10-1.20 [facility] EOS # 0.1 K/mm3 0.0-0.5 [facility] BASO # 0.0 K/mm3 0.0-0.2 [facility] ID Date Data Source [id number] 04/19/2020 10:27:00 AM EST [facility] ([facility] Name Value Range Interpretation Code Description Data Salome rce(s) Supporting Document(s) Amylase [Enzymatic activity/volume] in Serum or Plasma 54 U/L 31- 110 [facility] Lipoprotein lipase [Enzymatic activity/volume] in Serum or Plasm a 32 U/L 14-85 [facility] ([facility] ID Date Data Source [id number] 04/19/2020 09:39:00 AM EST [facility] Name Value Range Interpretation Code Description Data Aslome rce(s) Supporting Document(s) Glu 86 mg/dL 70-110 [facility] NORMAL RANGES Age WBC RBC HGB HCT [...] HCT IS 5% LESS SOURCE FOR DATA: [address] [employer] MANUAL( AUTOMATED BLOOD COUNTS AND [...] Normal 80 and above >32 mL/min Normal BUN 14 mg/dL 8-23 [facility] NORMAL RANGES Age WBC RBC HGB HCT [...] HCT IS 5% LESS SOURCE FOR DATA: [address] 1800 OPERATION MANUAL( AUTOMATED BLOOD COUNTS AND [...] Normal 80 and above >32 mL/min Normal Creat 0.6 mg/dL 0.5-1.0 [facility] NORMAL RANGES Age WBC RBC HGB HCT [...] HCT IS 5% LESS SOURCE FOR DATA: [place] DYN 1800 OPERATION MANUAL( AUTOMATED BLOOD COUNTS [...] Normal 80 and above >32 mL/min Normal Na 139 mmol/L 136-145 [facility] ([facility] NORMAL RANGES Age WBC RBC HGB HCT [...] HCT IS 5% LESS SOURCE FOR DATA: [address] 1800 [employer]PERATION MANUAL( AUTOMATED BLOOD COUNTS AND [...] Normal 80 and above >32 mL/min Normal BUN/Creatinine Ratio 23.4 [facility] ([facility] NORMAL RANGES Age WBC RBC HGB HCT [...] HCT IS 5% LESS SOURCE FOR DATA: [address] 1800 [employer]PERATION MANUAL( AUTOMATED BLOOD COUNTS AND [...] Normal 80 and above >32 mL/min Normal CL 100.0 mmol/L 98.0-107.0 [facility] ([facility] NORMAL RANGES Age WBC RBC HGB HCT [...] HCT IS 5% LESS SOURCE FOR DATA: [address] 1800 OPERATION MANUAL( AUTOMATED BLOOD COUNTS AND [...] Normal 80 and above >32 mL/min Normal K 4.4 mmol/L 3.5-5.1 [facility] ([facility] NORMAL RANGES Age WBC RBC HGB HCT [...] HCT IS 5% LESS SOURCE FOR DATA: [address] 1800 [employer]PERATION MANUAL( AUTOMATED BLOOD COUNTS AND [...] Normal 80 and above >32 mL/min Normal Co2 23.4 mmol/L 22.0-29.0 [facility] ([facility] NORMAL RANGES Age WBC RBC HGB HCT [...] HCT IS 5% LESS SOURCE FOR DATA: [address] 1800 OPERATION MANUAL( AUTOMATED BLOOD COUNTS AND [...] Normal 80 and above >32 mL/min Normal CA 9.8 mg/dL 8.6-10.2 [facility] NORMAL RANGES Age WBC RBC HGB HCT [...] HCT IS 5% LESS SOURCE FOR DATA: [address] 1800 OPERATION MANUAL( AUTOMATED BLOOD COUNTS AND [...] Normal 80 and above >32 mL/min Normal TP 6.1 g/dL 6.6-8.7 Below low normal [facility] ( [facility] NORMAL RANGES Age WBC RBC HGB HCT [...] HCT IS 5% LESS SOURCE FOR DATA: [address] 1800 OPERATION MANUAL( AUTOMATED BLOOD COUNTS AND [...] Normal 80 and above >32 mL/min Normal Alb 4.0 g/dL 3.4-4.8 [facility] NORMAL RANGES Age WBC RBC HGB HCT [...] HCT IS 5% LESS SOURCE FOR DATA: [address] 1800 OPERATION MANUAL( AUTOMATED BLOOD COUNTS AND [...] Normal 80 and above >32 mL/min Normal A/G Ratio 1.9 CALC [facility] ([facility] NORMAL RANGES Age WBC RBC HGB HCT [...] HCT IS 5% LESS SOURCE FOR DATA: OJE DYN 1800 [employer] MANUAL( AUTOMATED BLOOD COUNTS [...] Normal 80 and above >32 mL/min Normal Globulin 2.1 CALC [facility] ([facility] NORMAL RANGES Age WBC RBC HGB HCT [...] HCT IS 5% LESS SOURCE FOR DATA: [address] 1800 [employer] MANUAL( AUTOMATED BLOOD COUNTS [...] Normal 80 and above >32 mL/min Normal Ast (Sgot) 11 U/L 0-40 [facility] ([facility] NORMAL RANGES Age WBC RBC HGB HCT [...] HCT IS 5% LESS SOURCE FOR DATA: [address] 1800 OPERATION MANUAL( AUTOMATED BLOOD COUNTS AND [...] Normal 80 and above >32 mL/min Normal Alp 86.5 U/L 35-129 [facility] NORMAL RANGES Age WBC RBC HGB HCT [...] HCT IS 5% LESS SOURCE FOR DATA: [address] 1800 OPERATION MANUAL( AUTOMATED BLOOD COUNTS AND [...] Normal 80 and above >32 mL/min Normal Alt (SGPT) 2 U/L 0-41 [facility] ([facility] NORMAL RANGES Age WBC RBC HGB HCT [...] HCT IS 5% LESS SOURCE FOR DATA: [address] 1800 OPERATION MANUAL( AUTOMATED BLOOD COUNTS AND [...] Normal 80 and above >32 mL/min Normal Tbili 0.25 mg/dL 0.0-1.2 [facility] ([facility] NORMAL RANGES Age WBC RBC HGB HCT [...] HCT IS 5% LESS SOURCE FOR DATA: [address] 1800 OPERATION MANUAL( AUTOMATED BLOOD COUNTS AND [...] Normal 80 and above >32 mL/min Normal Osmolality-Calculated 277.0 [facility]C [facility] ([facility] NORMAL RANGES Age WBC RBC HGB HCT [...] HCT IS 5% LESS SOURCE FOR DATA: [address] 1800 OPERATION MANUAL( AUTOMATED BLOOD COUNTS AND [...] Normal 80 and above >32 mL/min Normal Anion Gap 20 mmol/L [facility] ([facility] NORMAL RANGES Age WBC RBC HGB HCT [...] HCT IS 5% LESS SOURCE FOR DATA: [address] 1800 OPERATION MANUAL( AUTOMATED BLOOD COUNTS AND [...] Normal 80 and above >32 mL/min Normal eGFR Non-Afr. Lao 92 # [facility] ([facility] NORMAL RANGES Age WBC RBC HGB HCT [...] HCT IS 5% LESS SOURCE FOR DATA: [address] 1800 OPERATION MANUAL( AUTOMATED BLOOD COUNTS AND [...] Normal 80 and above >32 mL/min Normal eGFR 106 # FRNACA ( [facility] NORMAL RANGES Age WBC RBC HGB HCT [...] HCT IS 5% LESS SOURCE FOR DATA: [address] 1800 OPERATION MANUAL( AUTOMATED BLOOD COUNTS AND [...] Normal 80 and above >32 mL/min Normal ID Date Data Source [id number] 04/19/2020 09:39:00 AM EST [facility] ([facility] Name Value Range Interpretation Code Description Data Salome rce(s) Supporting Document(s) WBC 7.5 10E3/uL 4.1-10.9 [facility] ([facility] NORMAL RANGES Age WBC RBC HGB HCT [...] HCT IS 5% LESS SOURCE FOR DATA: Sh[place] DYN 1800 [employer]PER[employer] MANUAL( AUTOMATED BLOOD COUNTS [...] Normal 80 and above >32 mL/min Normal HGB 13.0 g/dL 12.0-18.0 [facility] ([facility] NORMAL RANGES Age WBC RBC HGB HCT [...] HCT IS 5% LESS SOURCE FOR DATA: [address] 1800 OPERATION MANUAL( AUTOMATED BLOOD COUNTS AND [...] Normal 80 and above >32 mL/min Normal RBC 4.30 10E6/uL 4.20-6.30 [facility] ([facility] NORMAL RANGES Age WBC RBC HGB HCT [...] HCT IS 5% LESS SOURCE FOR DATA: [address] 1800 OPERATION MANUAL( AUTOMATED BLOOD COUNTS AND [...] Normal 80 and above >32 mL/min Normal MCH 30.2 pg 26.0-32.0 [facility] ([facility] NORMAL RANGES Age WBC RBC HGB HCT [...] HCT IS 5% LESS SOURCE FOR DATA: [address] 1800 OPERATION MANUAL( AUTOMATED BLOOD COUNTS AND [...] Normal 80 and above >32 mL/min Normal HCT 39.5 % 37.0-51.0 [facility] ([facility] NORMAL RANGES Age WBC RBC HGB HCT [...] HCT IS 5% LESS SOURCE FOR DATA: [address] 1800 OPERATION MANUAL( AUTOMATED BLOOD COUNTS AND [...] Normal 80 and above >32 mL/min Normal MCV 91.9 fL 80.0-97.0 [facility] ([facility] NORMAL RANGES Age WBC RBC HGB HCT [...] HCT IS 5% LESS SOURCE FOR DATA: [address] 1800 OPERATION MANUAL( AUTOMATED BLOOD COUNTS AND [...] Normal 80 and above >32 mL/min Normal MCHC 32.9 g/dL 31.0-36.0 [facility] ([facility] NORMAL RANGES Age WBC RBC HGB HCT [...] HCT IS 5% LESS SOURCE FOR DATA: [address] 1800 OPERATION MANUAL( AUTOMATED BLOOD COUNTS AND [...] Normal 80 and above >32 mL/min Normal PLT 315 10E3/uL 140-440 [facility] ([facility] NORMAL RANGES Age WBC RBC HGB HCT [...] HCT IS 5% LESS SOURCE FOR DATA: [address] 1800 OPERATION MANUAL( AUTOMATED BLOOD COUNTS AND [...] Normal 80 and above >32 mL/min Normal RDW-CV 13.2 % 11.5-14.5 [facility] ([facility] NORMAL RANGES Age WBC RBC HGB HCT [...] HCT IS 5% LESS SOURCE FOR DATA: [address] 1800 OPERATION MANUAL( AUTOMATED BLOOD COUNTS AND [...] Normal 80 and above >32 mL/min Normal Lym% 15.8 % 10.0-58.5 [facility] ([facility] NORMAL RANGES Age WBC RBC HGB HCT [...] HCT IS 5% LESS SOURCE FOR DATA: JOE DYN 1800 OPERATION MANUAL( AUTOMATED BLOOD COUNTS [...] Normal 80 and above >32 mL/min Normal Neut% 75.6 % 37.0-92.0 [facility] ([facility] NORMAL RANGES Age WBC RBC HGB HCT [...] HCT IS 5% LESS SOURCE FOR DATA: [address] 1800 OPERATION MANUAL( AUTOMATED BLOOD COUNTS AND [...] Normal 80 and above >32 mL/min Normal Lym# 1.2 10E3/uL 0.6-4.1 [facility] ([facility] NORMAL RANGES Age WBC RBC HGB HCT [...] HCT IS 5% LESS SOURCE FOR DATA: [address] 1800 OPERATION MANUAL( AUTOMATED BLOOD COUNTS AND [...] Normal 80 and above >32 mL/min Normal Neut# 5.7 % 2.0-7.8 [facility] ([facility] NORMAL RANGES Age WBC RBC HGB HCT [...] HCT IS 5% LESS SOURCE FOR DATA: [address] 1800 OPERATION MANUAL( AUTOMATED BLOOD COUNTS AND [...] Normal 80 and above >32 mL/min Normal MXD% 8.6 % 0.1-24.0 [facility] ([facility] NORMAL RANGES Age WBC RBC HGB HCT [...] HCT IS 5% LESS SOURCE FOR DATA: [address] 1800 OPERATION MANUAL( AUTOMATED BLOOD COUNTS AND [...] Normal 80 and above >32 mL/min Normal MPV 9.5 fL 9.0-13.0 [facility] ([facility] NORMAL RANGES Age WBC RBC HGB HCT [...] HCT IS 5% LESS SOURCE FOR DATA: [address] 1800 OPERATION MANUAL( AUTOMATED BLOOD COUNTS AND [...] Normal 80 and above >32 mL/min Normal MXD# 0.6 10E3/uL 0.0-1.8 [facility] ([facility] NORMAL RANGES Age WBC RBC HGB HCT [...] HCT IS 5% LESS SOURCE FOR DATA: [address] 1800 OPERATION MANUAL( AUTOMATED BLOOD COUNTS AND [...] Normal 80 and above >32 mL/min Normal ID Date Data Source [id number] 03/06/2020 01:31:56 PM EDT [facility] Name Value Range Interpretation Code Description Data Salome rce(s) Supporting Document(s) Progress Note [facility] HMBUBd3oEwJDCmZr28/FULomSNEcr8CeNAfzWKy5PXqmCNLbJ3FrYYA2jP7gDWX0GAsJSoHkTaVwCDU1 lbm [file] AgICAgICAgICAgICAgICAgICAgICAgICAgICAgICAgICAgICAgICAgICAgICAgICAgICAgICAgICAgIC AgICAgICAgICAgICAgICAgICAgICAgDQogICAgICAg ICAgICAgICAgICAgICAgICAgICAgICAgICAgICAgICAgICAgICAgICAgICAgICAgICAgICAgICAgICAg ICAgICAgICAgICAgICAgICAgICAgICAgICAgICAgICAgDQogICAgICAgICAgICAgICAgICAgICAgICAg ICAgICAgICAgICAgICAgICAgICAgICAgICAgICAgIC AgICAgICAgICAgICAgICAgICAgICAgICAgICAgICAgICAgICAgICAgICAgDQogICAgICAgICAgICAgIC AgICAgICAgICAgICAgICAgICAgICAgICAgICAgICAgICAgICAgICAgICAgICAgICAgICAgICAgICAgIC AgICAgICAgICAgICAgICAgICAgICAgICAgDQogICAg ICAgICAgICAgICAgICAgICAgICAgICAgICAgICAgICAgICAgICAgICAgICAgICAgICAgICAgICAgICAg ICAgICAgICAgICAgICAgICAgICAgICAgICAgICAgICAgICAgDQogICAgICAgICAgICAgICAgICAgICAg ICAgICAgICAgICAgICAgICAgICAgICAgICAgICAgIC AgICAgICAgICAgICAgICAgICAgICAgICAgICAgICAgICAgICAgICAgICAgICAgDQogICAgICAgICAgIC AgICAgICAgICAgICAgICAgICAgICAgICAgICAgICAgICAgICAgICAgICAgICAgICAgICAgICAgICAgIC AgICAgICAgICAgICAgICAgICAgICAgICAgICAgDQog ICAgICAgICAgICAgICAgICAgICAgICAgICAgICAgICAgICAgICAgICAgICAgICAgICAgICAgICAgICAg ICAgICAgICAgICAgICAgICAgICAgICAgICAgICAgICAgICAgICAgDQogICAgICAgICAgICAgICAgICAg ICAgICAgICAgICAgICAgICAgICAgICAgICAgICAgIC AgICAgICAgICAgICAgICAgICAgICAgICAgICAgICAgICAgICAgICAgICAgICAgICAgDQogICAgICAgIC AgICAgICAgICAgICAgICAgICAgICAgICAgICAgICAgICAgICAgICAgICAgICAgICAgICAgICAgICAgIC AgICAgICAgICAgICAgICAgICAgICAgICAgICAgICAg ZGq3V6maZHBpAYNuQZ6hKBc0Kz0+ANuQNdQoCPY4ceChnZ2PCE2gd3GiTWvsMAKpx4LnBNe9DR4AXNRu VWwvGY5CVYmzfy3ZYWCzRWUtkSVSi6rzSgIgRPM2SYNkQpqtRG1HBFQyC2hbjkSpSZFoRRFLOS9HPnZh C5OcuQ72UWECAt8+GYzdwbQoKgdZRvK9WLCpf9XvZM j0LA2FUSPuAehkp4HbUoVqNWVYBTqzFI2XSNH5UFLfWSYiXl6WUCWtW652leUaUK3KUj0XWvBkMQ2cqq 3WEdGhEWVcWbyRDuu6TEcgSR7OeORvDYcNut0izlWowoZTy2SmcgJpfGHEUIDvsoGEDIOzwYElginxXL WsXCVxVN2qQl6sIDQxAFJ8OhZ8ABAWJB6GIDEbWQAe mULcCXGlOJEQNQ1JULbhXHT0OGAqbwIfkKJeDEqyPI6OBEDrsxRkPFpyUXQONNb+Ey4HWN5eb6QaCAkd FVYyAD0vvw0FVDuJDxQkU5U2fGKhO9Q9EYpfFq9AFSXtPEDsGOotEAAOECayKB1EHY3ovfA3IZ8DzAOs FMLzRNXxvSBeMYg6R15ttKWhJMvxZF2WBUY+Juliet+Pg 0DVKTuIVWeJINvLtOrMWYMPdAzM2CdQ8GBr5UdN1CzQU92vVycedRhCZowGB2QVZ5xCHXrWVUDUQ0IdZ GwmQ0fprNgXTAqIDNPYrXjM86qfRTrTQGrHKN2QKPcGe1ZXYXpC9JwgzFczGxkjxGmEWYgBXRZRH4LGY nhkpBglMIxuDiiMB55zGwkHD8QQh9JGvZxEE1zul4E bEUmIx2UHOAnQe8ICAQjOTJjBUXjAGA6PXDdQhLoFIhxNOShGARtYYA7OWAtOJVjFJ0ZToVuRZBgRPxx UYKvHPRjSQTnqm5LRMAcWGPgURhwJIJmAIViTNSlCJbrMPQsAFJrZDS1VMIsJYHyUM7DUxMlTFGwWPY0 WmeeQLGlUMHhjt2KKONaBGTzNdX3SoQrZMHkGSQsLJ ftUWBlMRCkGJGtNOMmTIAiLD0JPaDrQBGxDJNnUSgmMKYtLUEsed0VORReJMFqThD3RdUiWQTtOGJvPL eyFBKbGDY0LDE2ZUSsIOEbQV8OZjDeVKFmIRH9BnptZPMnRDNhrx2QHNYrKCWyCNkfVVBmVWMwUBBwKN dxMTYeYBE9NZg6NJFzHZQjLJ2NAsPvFFRmQSN7QTJo ZVDqVNVsir5ATHMjEVRiXfgsYHDnMQCrFIPwPYuyTXAqAKV7ACZ5GSMeMHKdHQ3XKmKhJHVcCGjuHQSk RDYgHWQagv9QQZGmRIOcSqS6PQMbHAXbNPMoVImzMOHiWPA3NEK8OOFuQACeQP3DQlCiNLRlMDp3DPhs NWUpRKAaqe2KDQQbHGGoGJS1RTCrGARcLYHeNEo9pq VnnZEeUMq3KZ5DU6GchjNwNqRDVz6Zy258KKIjANYoPq7UD3hiUg2cWXPaFLYNOu3UMLw2EGe8BDObLX U8DSPoPBT4FBBuH6RrMFS4AUQtGqIeXJJ+ISbdEhA8LtRvKOxlEYM2NOuuCHItD5N0GKF3KnWvACH3DI 1hZACPAk3+QDcziWZccVybGGWNLjK4PauoDBevNZSRVq8T ID Date Data Source [id number] 02/04/2020 10:55:00 AM EDT [facility] ([facility] Name Value Range Interpretation Code Description Data Salome rce(s) Supporting Document(s) Laboratory test finding (navigational concept) Laboratory test result [facility] ([facility] This test was developed and its performa nce characteristics determined by [facility]. This test has not been FDA cleared [...] result in this assay. Performed at: - [facility] [id number] Cut Out Worker: Lelo Mtz MD, Phone: [phone] Not Detected ID Date Data Source [id number] 02/04/2020 10:55:00 AM EDT [facility] Name Value Range Interpretation Code Description Data Salome rce(s) Supporting Document(s) SARS coronavirus 2 RNA [facility] This lab was ordered by [facility] and reported by [facility]. ID Date Data Source [id number] 02/02/2020 02:58:00 PM EDT [facility] ([facility] Name Value Range Interpretation Code Description Data Salome rce(s) Supporting Document(s) Glu 146 mg/dL 70-110 Above high normal [facility] ([facility] NORMAL RANGES Age WBC RBC HGB HCT [...] HCT IS 5% LESS SOURCE FOR DATA: [address] 1800 OPERATION MANUAL( AUTOMATED BLOOD COUNTS AND [...] Normal 80 and above >32 mL/min Normal BUN 17 mg/dL 8-23 [facility] ([facility] NORMAL RANGES Age WBC RBC HGB HCT [...] HCT IS 5% LESS SOURCE FOR DATA: [address] 1800 OPERATION MANUAL( AUTOMATED BLOOD COUNTS AND [...] Normal 80 and above >32 mL/min Normal Creat 0.7 mg/dL 0.5-1.0 [facility] NORMAL RANGES Age WBC RBC HGB HCT [...] HCT IS 5% LESS SOURCE FOR DATA: JOE DYN 1800 OPERATION MANUAL( AUTOMATED BLOOD COUNTS [...] Normal 80 and above >32 mL/min Normal BUN/Creatinine Ratio 24.5 [facility] arGEN-X ([facility] NORMAL RANGES Age WBC RBC HGB HCT [...] HCT IS 5% LESS SOURCE FOR DATA: [address] 1800 OPERATION MANUAL( AUTOMATED BLOOD COUNTS AND [...] Normal 80 and above >32 mL/min Normal Na 146 mmol/L 136-145 Above high normal [facility] ([facility] NORMAL RANGES Age WBC RBC HGB HCT [...] HCT IS 5% LESS SOURCE FOR DATA: [address] 1800 OPERATION MANUAL( AUTOMATED BLOOD COUNTS AND [...] Normal 80 and above >32 mL/min Normal CL 106.1 mmol/L 98.0-107.0 [facility] ([facility] NORMAL RANGES Age WBC RBC HGB HCT [...] HCT IS 5% LESS SOURCE FOR DATA: [address] 1800 OPERATION MANUAL( AUTOMATED BLOOD COUNTS AND [...] Normal 80 and above >32 mL/min Normal K 3.6 mmol/L 3.5-5.1 [facility] ([facility] NORMAL RANGES Age WBC RBC HGB HCT [...] HCT IS 5% LESS SOURCE FOR DATA: [address] 1800 OPERATION MANUAL( AUTOMATED BLOOD COUNTS AND [...] Normal 80 and above >32 mL/min Normal Co2 23.3 mmol/L 22.0-29.0 [facility] ([facility] NORMAL RANGES Age WBC RBC HGB HCT [...] HCT IS 5% LESS SOURCE FOR DATA: [address] 1800 OPERATION MANUAL( AUTOMATED BLOOD COUNTS AND [...] Normal 80 and above >32 mL/min Normal CA 9.6 mg/dL 8.6-10.2 [facility] ([facility] NORMAL RANGES Age WBC RBC HGB HCT [...] HCT IS 5% LESS SOURCE FOR DATA: [address] 1800 OPERATION MANUAL( AUTOMATED BLOOD COUNTS AND [...] Normal 80 and above >32 mL/min Normal TP 6.4 g/dL 6.6-8.7 Below low normal [facility] NORMAL RANGES Age WBC RBC HGB HCT [...] HCT IS 5% LESS SOURCE FOR DATA: [address] 1800 OPERATION MANUAL( AUTOMATED BLOOD COUNTS AND [...] Normal 80 and above >32 mL/min Normal Alb 4.5 g/dL 3.4-4.8 [facility] NORMAL RANGES Age WBC RBC HGB HCT [...] HCT IS 5% LESS SOURCE FOR DATA: [address] 1800 OPERATION MANUAL( AUTOMATED BLOOD COUNTS AND [...] Normal 80 and above >32 mL/min Normal Globulin 1.9 Calc [facility] ([facility] NORMAL RANGES Age WBC RBC HGB HCT [...] HCT IS 5% LESS SOURCE FOR DATA: [address] 1800 OPERATION MANUAL( AUTOMATED BLOOD COUNTS AND [...] Normal 80 and above >32 mL/min Normal A/G Ratio 2.3 [facility]c [facility] NORMAL RANGES Age WBC RBC HGB HCT MCV PLT Adult M 4.1-10.9 4.20-6.30 12.0-18.0 37.0-51.0 80-97 140-440 Adult F 4.1-10.9 4.04-5.48 12.0-18.0 37.0-51.0 80- 140-440 0 -1 Yr 5.0-20.0 3.9-5.9 15-18 [...] HCT IS 5% LESS SOURCE FOR DATA: JOE DYN 1800 OPERATION MANUAL( AUTOMATED BLOOD COUNTS [...] Normal 80 and above >32 mL/min Normal Alt (SGPT) 4 U/L 0-41 [facility] ([facility] NORMAL RANGES Age WBC RBC HGB HCT [...] HCT IS 5% LESS SOURCE FOR DATA: [address] 1800 OPERATION MANUAL( AUTOMATED BLOOD COUNTS AND [...] Normal 80 and above >32 mL/min Normal Alp 80.8 U/L 35-129 [facility] NORMAL RANGES Age WBC RBC HGB HCT [...] HCT IS 5% LESS SOURCE FOR DATA: [address] 1800 OPERATION MANUAL( AUTOMATED BLOOD COUNTS AND [...] Normal 80 and above >32 mL/min Normal Ast (Sgot) 15 U/L 0-40 [facility] ([facility] NORMAL RANGES Age WBC RBC HGB HCT [...] HCT IS 5% LESS SOURCE FOR DATA: [address] 1800 OPERATION MANUAL( AUTOMATED BLOOD COUNTS AND [...] Normal 80 and above >32 mL/min Normal Tbili 0.26 mg/dL 0.0-1.2 [facility] ([facility] NORMAL RANGES Age WBC RBC HGB HCT [...] HCT IS 5% LESS SOURCE FOR DATA: [address] 1800 OPERATION MANUAL( AUTOMATED BLOOD COUNTS AND [...] Normal 80 and above >32 mL/min Normal Osmolality-Calculated 294.0 Calc [facility] ([facility] NORMAL RANGES Age WBC RBC HGB HCT [...] HCT IS 5% LESS SOURCE FOR DATA: [address] 1800 OPERATION MANUAL( AUTOMATED BLOOD COUNTS AND [...] Normal 80 and above >32 mL/min Normal eGFR 101 # [facility] ( [facility] CKD-EPI Anion Gap 20 mmol/L [facility] ([facility] NORMAL RANGES Age WBC RBC HGB HCT [...] HCT IS 5% LESS SOURCE FOR DATA: [address] 1800 OPERATION MANUAL( AUTOMATED BLOOD COUNTS AND [...] Normal 80 and above >32 mL/min Normal eGFR Non-Afr. Lao 87 # [facility] ([facility] CKD-EPI ID Date Data Source [id number] 02/02/2020 02:58:00 PM EDT [facility] ([facility] Name Value Range Interpretation Code Description Data Salome rce(s) Supporting Document(s) WBC 5.5 10E3/uL 4.1-10.9 [facility] ([facility] NORMAL RANGES Age WBC RBC HGB HCT [...] HCT IS 5% LESS SOURCE FOR DATA: [address] 1800 OPERATION MANUAL( AUTOMATED BLOOD COUNTS AND [...] Normal 80 and above >32 mL/min Normal RBC 4.36 10E6/uL 4.20-6.30 arGEN-X ([facility] NORMAL RANGES Age WBC RBC HGB HCT [...] HCT IS 5% LESS SOURCE FOR DATA: JOE DYN 1800 OPERATION MANUAL( AUTOMATED BLOOD COUNTS [...] Normal 80 and above >32 mL/min Normal HGB 13.5 g/dL 12.0-18.0 [facility] NORMAL RANGES Age WBC RBC HGB HCT [...] HCT IS 5% LESS SOURCE FOR DATA: [address] 1800 OPERATION MANUAL( AUTOMATED BLOOD COUNTS AND [...] Normal 80 and above >32 mL/min Normal MCV 91.3 fL 80.0-97.0 [facility] ([facility] NORMAL RANGES Age WBC RBC HGB HCT [...] HCT IS 5% LESS SOURCE FOR DATA: [address] 1800 OPERATION MANUAL( AUTOMATED BLOOD COUNTS AND [...] Normal 80 and above >32 mL/min Normal HCT 39.8 % 37.0-51.0 [facility] ([facility] NORMAL RANGES Age WBC RBC HGB HCT [...] HCT IS 5% LESS SOURCE FOR DATA: [address] 1800 OPERATION MANUAL( AUTOMATED BLOOD COUNTS AND [...] Normal 80 and above >32 mL/min Normal MCH 31.0 pg 26.0-32.0 [facility] ([facility] NORMAL RANGES Age WBC RBC HGB HCT [...] HCT IS 5% LESS SOURCE FOR DATA: Shicon DYN 1800 OPERATION MANUAL( AUTOMATED BLOOD COUNTS [...] Normal 80 and above >32 mL/min Normal MCHC 33.9 g/dL 31.0-36.0 [facility] ([facility] NORMAL RANGES Age WBC RBC HGB HCT [...] HCT IS 5% LESS SOURCE FOR DATA: [address] 1800 OPERATION MANUAL( AUTOMATED BLOOD COUNTS AND [...] Normal 80 and above >32 mL/min Normal PLT 244 10E3/uL 140-440 [facility] ([facility] NORMAL RANGES Age WBC RBC HGB HCT [...] HCT IS 5% LESS SOURCE FOR DATA: [address] 1800 OPERATION MANUAL( AUTOMATED BLOOD COUNTS AND [...] Normal 80 and above >32 mL/min Normal RDW-CV 12.9 % 11.5-14.5 [facility] ([facility] NORMAL RANGES Age WBC RBC HGB HCT [...] HCT IS 5% LESS SOURCE FOR DATA: [address] 1800 OPERATION MANUAL( AUTOMATED BLOOD COUNTS AND [...] Normal 80 and above >32 mL/min Normal Lym% 22.2 % 10.0-58.5 [facility] ([facility] NORMAL RANGES Age WBC RBC HGB HCT [...] HCT IS 5% LESS SOURCE FOR DATA: [address] 1800 OPERATION MANUAL( AUTOMATED BLOOD COUNTS AND [...] Normal 80 and above >32 mL/min Normal MXD% 10.2 % 0.1-24.0 [facility] ([facility] NORMAL RANGES Age WBC RBC HGB HCT [...] HCT IS 5% LESS SOURCE FOR DATA: JOE DYN 1800 OPERATION MANUAL( AUTOMATED BLOOD COUNTS [...] Normal 80 and above >32 mL/min Normal Neut% 67.6 % 37.0-92.0 [facility] ([facility] NORMAL RANGES Age WBC RBC HGB HCT [...] HCT IS 5% LESS SOURCE FOR DATA: [address] 1800 OPERATION MANUAL( AUTOMATED BLOOD COUNTS AND [...] Normal 80 and above >32 mL/min Normal Lym# 1.2 10E3/uL 0.6-4.1 [facility] NORMAL RANGES Age WBC RBC HGB HCT [...] HCT IS 5% LESS SOURCE FOR DATA: [address] 1800 OPERATION MANUAL( AUTOMATED BLOOD COUNTS AND [...] Normal 80 and above >32 mL/min Normal Neut# 3.7 % 2.0-7.8 [facility] ([facility] NORMAL RANGES Age WBC RBC HGB HCT [...] HCT IS 5% LESS SOURCE FOR DATA: [address] 1800 OPERATION MANUAL( AUTOMATED BLOOD COUNTS AND [...] Normal 80 and above >32 mL/min Normal MXD# 0.6 10E3/uL 0.0-1.8 [facility] ([facility] NORMAL RANGES Age WBC RBC HGB HCT [...] HCT IS 5% LESS SOURCE FOR DATA: [address] 1800 OPERATION MANUAL( AUTOMATED BLOOD COUNTS AND [...] Normal 80 and above >32 mL/min Normal MPV 10.8 fL 9.0-13.0 [facility] ([facility] NORMAL RANGES Age WBC RBC HGB HCT [...] HCT IS 5% LESS SOURCE FOR DATA: [address] 1800 OPERATION MANUAL( AUTOMATED BLOOD COUNTS AND [...] Normal 80 and above >32 mL/min Normal ID Date Data Source [id number] 01/10/2020 12:57:27 PM EDT [facility] Name Value Range Interpretation Code Description Data Salome rce(s) Supporting Document(s) Progress Note [facility] [id number] lbm [file] [id number] ID Date Data Source [id number] 10/16/2019 10:43:00 AM EDT [facility] Exam Number: [id number] OF EXAMINATIO N: 10/16/2019 9:37 EDTCT ABD&PELV WITH IV&ORAL CONTRHISTORY: Rectal cancerTECHNIQUE:This CT exam was performed using the following dose reductiontechniques: automated exposure control, adjustment of mA and/or kVaccording to the patient's size, and use of iterative reconstructiontechnique.Standard contiguous axial spiral imaging was obtained from the dome ofthe diaphragms through the symphysis pubis with oral contrast and withintravenous contrast administration and with coronal reformatting.FINDINGS:Lower thorax: UnremarkableABDOMEN:Liver: UnremarkableGal lbladder and bile ducts: The gallbladder is distended likelysecondary to fasting. There is no gallbladder wall thickening orbiliary dilatation.Pancreas: UnremarkableSpleen: UnremarkableAdrenals: UnremarkableKidneys and ureters: UnremarkableStomach and bowel: Gastric bypassAppendix: No appendicitis. Patient is status post appendectomy.PELVIS:Bladder: UnremarkableReproductive: UnremarkableNo free fluid or lymphadenopathyIMPRESSION:Status post gastric bypass.Electronically signed in [id number] by: Mena Nicholson M.D. 10/16/201910:36 EDT Reported By: Rodrigue NICHOLSON M.D. Signed By: Faizan NICHOLSON M.D. Name Value Range Interpretation Code Description Data Salome rce(s) Supporting Document(s) ID Date Data Source [id number] 10/15/2019 08:09:00 AM EDT [facility] Name Value Range Interpretation Code Description Data [facility] rce(s) Supporting Document(s) VITAMIN D, 25-HYDROXY 28.1 ng/mL 30.0-100.0 [facility] Vitamin D deficiency has been defined by the [place] ofMedicine and an Endocrine Society practice guideline as alevel of serum 25-OH vitamin D less than 20 ng/mL (1,2).The Endocrine Society went on to further define vitamin Dinsufficiency as a level between 21 and 29 ng/mL (2).1. IOM ([place] of Medicine). 2010. Dietary reference intakes for calcium and D. [place]: The National Academies Press.2. Hanna MF, [place], Rinku PISANO, et al. Evaluation, treatment, and prevention of vitamin D deficiency: an Endocrine Society clinical practice guideline. JCEM. 2010; 96(7):1911-30. ID Date Data Source [id number] 10/15/2019 08:09:00 AM EDT [facility] Name Value Range Interpretation Code Description Data [facility] rce(s) Supporting Document(s) VITAMIN B12 487 pg/mL [phone] [facility] Performed at: RN - [facility] [place] [id number] Director: Lelo Mtz MD, Phone: [phone] ID Date Data Source [id number] 10/15/2019 08:05:00 AM EDT [facility] Name Value Range Interpretation Code Description Data Salome rce(s) Supporting Document(s) Vitamin D, 25-Hydroxy 28.1 ng/mL 30.0-100.0 Below low normal [facility] Vitamin D deficiency has been defined by the [place] ofMedicine and an Endocrine Society practice guideline as alevel of serum 25-OH vitamin D less than 20 ng/mL (1,2).The Endocrine Society went on to further define vitamin Dinsufficiency as a level between 21 and 29 ng/mL (2).1. IOM ([place] of Medicine). 2010. Dietary reference intakes for calcium and D. [place]: The National Academies Press.2. Hanna MF, [place] GRIFFITH, Rinku PISANO, et al. Evaluation, treatment, and prevention of vitamin D deficiency: an Endocrine Society clinical practice guideline. JCEM. 2010; 96(7):1911-30. ID Date Data Source [id number] 10/15/2019 08:05:00 AM EDT [facility] Name Value Range Interpretation Code Description Data Salome rce(s) Supporting Document(s) Vitamin B12 487 pg/mL [id number] [facility] ID Date Data Source [id number] 10/14/2019 11:27:00 AM EDT [facility] Name Value Range Interpretation Code Description Data Salome rce(s) Supporting Document(s) FERRITIN 160 ng/mL 8-252 [facility] ID Date Data Source [id number] 10/14/2019 11:27:00 AM EDT [facility] Name Value Range Interpretation Code Description Data Salome rce(s) Supporting Document(s) IRON 102 ug/dL 50-170 [facility] TIBC 284 ug/dL 250-450 [facility] % SATURATION 36 % 20-50 [facility] ID Date Data Source [id number] 10/14/2019 11:27:00 AM EDT [facility] l Name Value Range Interpretation Code Description Data Salome rce(s) Supporting Document(s) GLUCOSE 93 mg/dL 74-106 [facility] BLOOD UREA NITROGEN 12 mg/dL 7-18 [facility] ital CREATININE 0.6 mg/dL 0.6-1.0 [facility] SODIUM 142 mmol/L 136-145 [facility] POTASSIUM 3.9 mmol/L 3.5-5.1 [facility] CHLORIDE 104 mmol/L 98-107 [facility] CO2 30 mmol/L 21-32 [facility] CALCIUM 9.5 mg/dL 8.5-10.1 [facility] ANION GAP 8.0 mmol/L 5-12 [facility] GLOMERULAR FILTRATION RATE >90 mL/min [facility] GFR IS CALCULATED IN mL/min/1.73m2 NELLI L FUNCTION: >90MILDLY DECREASED: 60-89MILDY TO MODERATELY DECREASED: 45-59 MODERATELY TO SEVERELY DECREASED: 30-44SEVERELY DECREASED: 15-29RENAL FAILURE: <15 AST 18 U/L 15-37 [facility] ALT 9 U/L 12-78 L [facility] ALKALINE PHOSPHATASE 88 U/L 46-116 [facility] TOTAL BILIRUBIN 0.4 mg/dL 0.2-1.0 [facility] TOTAL PROTEIN 7.3 g/dl 6.4-8.2 [facility] ALBUMIN 4.1 gm/dL 3.4-5.0 [facility] ID Date Data Source [id number] 10/14/2019 10:36:00 AM EDT [facility] Name Value Range Interpretation Code Description Data Salome rce(s) Supporting Document(s) WHITE BLOOD COUNT 4.5 K/mm3 4.0-10.[address] [facility] al RED BLOOD COUNT 4.54 M/mm3 4.00-5.50 [facility] HEMOGLOBIN 13.5 gm/dL 12.0-16.0 [facility] HEMATOCRIT 41.0 % 36.0-48.8 [facility] MEAN CELL VOLUME 90.3 fl 80-96 [facility] MEAN CORPUSCULAR HEMOGLOBIN 29.7 pg 27.0-31.0 [facility] MEAN CORPUSCULAR HGB CONC 32.9 g/dl 32.0-36.0 [facility] RED CELL DISTRIBUTION WIDTH 13.4 % 10.0-14.5 [facility] PLATELET COUNT 228 K/mm3 172-450 [facility] MEAN PLATELET VOLUME 9.7 fl 9.0-13.0 [facility] pital GRAN % 57.7 % 50-80.0 [facility] IG% 0.0 % 0.0-0.2 [facility] LYMPH % 31.3 % 25.0-50.0 [facility] MONO % 7.7 % 2.0-10.0 [facility] EOS % 2.4 % 0-5.0 [facility] BASO % 0.9 % 0.0-2.0 [facility] GRAN # 2.6 K/mm3 2.0-8.00 [facility] IG# 0.0 K/mm3 0.0-0.2 [facility] LYMPH # 1.4 K/mm3 1.0-5.0 [facility] MONO # 0.4 K/mm3 0.10-1.20 [facility] EOS # 0.1 K/mm3 0.0-0.5 [facility] BASO # 0.0 K/mm3 0.0-0.2 [facility] ID Date Data Source [id number] 09/05/2019 11:57:00 AM EDT [facility] ([facility] Name Value Range Interpretation Code Description Data Salome rce(s) Supporting Document(s) Bacteria identified in Urine by Culture Laboratory test result [facility] ([facility] SRC:URINE Urine Culture, Routine Laboratory test result [facility] ([facility] SRC:URINE ID Date Data Source [id number] 09/05/2019 11:55:00 AM EDT [facility] ([facility] Name Value Range Interpretation Code Description Data Salome rce(s) Supporting Document(s) Color Urine Laboratory test result M [facility] ([facility] Specific Crouse 1.015 1.00-1.03 [facility] ([facility] PH Urine 7.0 5.0-8.0 [facility] Appearance of Urine Laboratory test result [facility] ([facility] Ketones Laboratory test result [facility] ([facility] Blood Urine Laboratory test result M [facility] ([facility] Glucose Urine Laboratory test result [facility] ([facility] Bilirubin.total [Presence] in Urine by Test strip Laboratory test res ult [facility] ([facility] Urobilinogen 0.2 EU/dl 0.2-1.0 [facility] ([facility] Nitrite Laboratory test result [facility] ([facility] Protein Urine Laboratory test result [facility] ([facility] Leukocytes Laboratory test result ME DENT ([facility] ID Date Data Source [id number] 08/05/2019 10:43:00 AM EST [facility] Name Value Range Interpretation Code Description Data Salome rce(s) Supporting Document(s) VITAMIN D 25 36 ng/mL 30-100 [facility] ID Date Data Source [id number] 08/05/2019 10:37:00 AM EST [facility] Name Value Range Interpretation Code Description Data Salome rce(s) Supporting Document(s) VITAMIN B12 457.0 pg/mL [id number] [facility] ID Date Data Source [id number] 08/05/2019 10:37:00 AM EST [facility] Name Value Range Interpretation Code Description Data Salome rce(s) Supporting Document(s) THERESA 136.7 ng/mL 8.0-252.0 [facility] ID Date Data Source [id number] 08/05/2019 10:08:00 AM EST [facility] Name Value Range Interpretation Code Description Data Salome rce(s) Supporting Document(s) FE 101 ug/dL 42-175 [facility] Patients treated with metal-binding drug s(i.e. Deferoxamine) may have depressed iron values aschelated iron may not properly react in the iron assay. UNBOUND IRON BC 214 ug/dL 130-375 [facility] al TOTAL IRON BC 315.0 ug/dL 250-400 [facility] al % IRON SAT. 32.0 % 30-35 [facility] ID Date Data Source [id number] 08/05/2019 10:08:00 AM EST [facility] Name Value Range Interpretation Code Description Data Salome rce(s) Supporting Document(s) GLU 95 mg/dL 70-110 [facility] Patients taking Sulfasalazine may have f alsely depressedGlucose levels. Patients taking Sulfapyridine may havefalsely elevated Glucose levels. Patients should be drawnfor Glucose before the initial administration of eitherdrug. BUN 19 mg/dL 7-23 [facility] CRE 0.573 mg/dL 0.500-1.300 [facility] GFR > 60 mL/min [facility] CHLORIDE 108 mmol/L 99-110 [facility] NA 144 mmol/L 136-147 [facility] POTASSIUM 4.1 mmol/L 3.5-5.1 [facility] TCO2 29 mmol/L 20-33 [facility] ANION GAP 11.1 10.0-20.0 [facility] CA 9.3 mg/dL 8.3-10.7 [facility] ALKALINE PHOS 78 U/L 45-117 [facility] TP 7.1 g/dL 6.0-7.8 [facility] ALB 4.0 g/dL 3.5-5.0 [facility] ESRD Dialysis patient Albumin reference range: 2.9-4.4 g/dL GL 3.1 g/dL 2.3-3.5 [facility] A/G 1.3 1.0-2.5 [facility] T. BILIRUBIN 0.5 mg/dL 0.1-1.1 [facility] [employer] [place] Total Bilirubin is n ot recommended forpatients undergoing treatment with eltrombopag (Promacta)due to the potential for falsely elevated results. ALTI 13 U/L 6-54 [facility] Patients taking Sulfasalazine and/or Sul fapyridine may havefalsely depressed ALT levels. Patients should be drawn forALT before the initial administration of either drug. AST 17 U/L 6-38 [facility] Patients taking Sulfasalazine and/or Sul fapyridine may havefalsely depressed AST levels. Patients should be drawn forAST before the initial administration of either drug. ID Date Data Source [id number] 08/05/2019 09:46:00 AM EST [facility] Name Value Range Interpretation Code Description Data Salome rce(s) Supporting Document(s) WBC 5.44 x10E3/uL 4.0-10.5 [facility] RBC 4.32 x10E6/uL 4.20-5.40 [facility] Hemoglobin 12.8 g/dL 12.0-16.0 [facility] Hematocrit 38.8 % 37.0-47.0 [facility] MCV 89.8 fL 81.0-99.0 [facility] MCH 29.6 pg 27.0-31.0 [facility] MCHC 33.0 g/dL 32.7-35.6 [facility] RDW 13.9 % 11.5-14.0 [facility] Platelet count 244 x10E3/uL 150-450 N [facility] ital MPV 9.6 fl 6.9-9.5 [facility] Neutrophils 64.4 % 34-64 [facility] Lymphocytes 24.4 % 25-45 [facility] Monocytes 8.1 % 1.7-10.6 [facility] Eosinophils 2.0 % 0.4-7.0 [facility] Basophils 0.9 % 0.1-2.0 [facility] Imm. Gran. 0.2 % 0.1-2.0 [facility] Abs. Neutro. 3.5 x10E3/uL 1.2-7.6 [facility] Abs. Lymph. 1.3 x10E3/uL 1.0-3.5 [facility] Abs. Pepin. 0.4 x10E3/uL 0.1-1.0 [facility] Abs. Eosin. 0.1 x10E3/uL 0.1-0.7 [facility] Abs. Baso. 0.1 x10E3/uL 0.0-0.1 [facility] Abs. Imm. Gran. 0.0 x10E3/uL 0.0-0.1 [facility] pital ANRBC% 0 % 0-5 [facility] ID Date Data Source [id number] 06/18/2019 08:47:00 PM EST [facility] Name Value Range Interpretation Code Description Data Salome rce(s) Supporting Document(s) LDH 172 U/L 88-250 [facility] ID Date Data Source [id number] 06/18/2019 08:47:00 PM EST [facility] Name Value Range Interpretation Code Description Data Salome rce(s) Supporting Document(s) GLU 86 mg/dL 70-110 [facility] Patients taking Sulfasalazine may have f alsely depressedGlucose levels. Patients taking Sulfapyridine may havefalsely elevated Glucose levels. Patients should be drawnfor Glucose before the initial administration of eitherdrug. BUN 16 mg/dL 7-23 [facility] CRE 0.613 mg/dL 0.500-1.300 [facility] GFR > 60 mL/min [facility] CHLORIDE 107 mmol/L 99-110 [facility] NA 141 mmol/L 136-147 [facility] POTASSIUM 4.2 mmol/L 3.5-5.1 [facility] TCO2 29 mmol/L 20-33 [facility] ANION GAP 9.2 10.0-20.0 [facility] CA 9.8 mg/dL 8.3-10.7 [facility] ALKALINE PHOS 79 U/L 45-117 [facility] TP 7.0 g/dL 6.0-7.8 [facility] ALB 3.8 g/dL 3.5-5.0 [facility] ESRD Dialysis patient Albumin reference range: 2.9-4.4 g/dL GL 3.2 g/dL 2.3-3.5 [facility] A/G 1.2 1.0-2.5 [facility] TOTAL BILIRUBIN 0.3 [facility] U/L 6-54 [facility] Patients taking Sulfasalazine and/or Sul fapyridine may havefalsely depressed ALT levels. Patients should be drawn forALT before the initial administration of either drug. AST 17 U/L 6-38 [facility] Patients taking Sulfasalazine and/or Sul fapyridine may havefalsely depressed AST levels. Patients should be drawn forAST before the initial administration of either drug. ID Date Data Source [id number] 06/18/2019 08:47:00 PM EST [facility] Name Value Range Interpretation Code Description Data Salome rce(s) Supporting Document(s) FE 73 ug/dL 42-175 [facility] Patients treated with metal-binding drug s(i.e. Deferoxamine) may have depressed iron values aschelated iron may not properly react in the iron assay. UNBOUND IRON BC 314 ug/dL 130-375 N [facility] TOTAL IRON BC 387.0 ug/dL 250-400 [facility] % IRON SAT. 18.8 % 30-35 [facility] ID Date Data Source [id number] 06/18/2019 05:03:00 PM EST [facility] Name Value Range Interpretation Code Description Data Salome rce(s) Supporting Document(s) VITAMIN B12 508.0 pg/mL 193-986 [facility] ID Date Data Source [id number] 06/18/2019 05:03:00 PM EST [facility] Name Value Range Interpretation Code Description Data Salome rce(s) Supporting Document(s) USTSH 1.330 uIU/mL 0.270-4.200 [facility] l ID Date Data Source [id number] 06/18/2019 05:03:00 PM EST [facility] Name Value Range Interpretation Code Description Data Salome rce(s) Supporting Document(s) FT4 0.81 ng/dL 0.76-1.46 [facility] ID Date Data Source [id number] 06/18/2019 04:23:00 PM EST [facility] Name Value Range Interpretation Code Description Data Salome rce(s) Supporting Document(s) WBC 5.12 x10E3/uL 4.0-10.5 [facility] RBC 4.25 x10E6/uL 4.20-5.40 [facility] Hemoglobin 11.9 g/dL 12.0-16.0 [facility] Hematocrit 38.3 % 37.0-47.0 [facility] MCV 90.1 fL 81.0-99.0 [facility] MCH 28.0 pg 27.0-31.0 [facility] MCHC 31.1 g/dL 32.7-35.6 [facility] RDW 13.3 % 11.5-14.0 [facility] Platelet count 299 x10E3/uL 150-450 N [facility] ital MPV 10.4 fl 6.9-9.5 [facility] Neutrophils 59.1 % 34-64 N [facility] Lymphocytes 29.9 % 25-45 N [facility] Monocytes 8.4 % 1.7-10.6 N [facility] Eosinophils 2.0 % 0.4-7.0 [facility] Basophils 0.4 % 0.1-2.0 [facility] Imm. Gran. 0.2 % 0.1-2.0 [facility] Abs. Neutro. 3.0 x10E3/uL 1.2-7.6 [facility] Abs. Lymph. 1.5 x10E3/uL 1.0-3.5 [facility] Abs. Pepin. 0.4 x10E3/uL 0.1-1.0 N [facility] Abs. Eosin. 0.1 x10E3/uL 0.1-0.7 [facility] Abs. Baso. 0.0 x10E3/uL 0.0-0.1 [facility] Abs. Imm. Gran. 0.0 x10E3/uL 0.0-0.1 N [facility] pital ID Date Data Source [id number] 06/12/2019 03:35:00 PM EST [facility] ([facility] Name Value Range Interpretation Code Description Data Salome rce(s) Supporting Document(s) Carcinoembryonic Ag [Mass/volume] in Serum or Plasma 0.6 ng/mL Normal (applies to non-numeric results) [facility] ([facility] THE CEA ASSAY IS PERFORMED ON THE [employer] BY CHEMILUMINESCENCE AND SHOULD NOT BE COMPARED INTERCHANGEABLY WITH OTHER METHODS. IT SHOULD NOT BE USED ALONE A SCREENING TEST OR DIAGNOSIS FOR THE PRESENCE OR ABSENCE OF MALIGNANT DISEASE. PREDICTIONS OF DISEASE RECURRENCE SHOULD NOT BE BASED SOLELY ON VALUES OBTAINED FROM SERIAL PATIENT SERUM VALUES. Ferritin [Mass/volume] in Serum or Plasma 7 ng/mL 8-252 Below low normal [facility] ([facility] ID Date Data Source [id number] 06/12/2019 03:35:00 PM EST [facility] ([facility] Name Value Range Interpretation Code Description Data Salome rce(s) Supporting Document(s) Glucose, Fasting 79 mg/dL 70-100 Normal (applies to non-numeric results) [facility] ([facility] Blood Urea Nitrogen 17 mg/dL 7-18 Normal (applies to non-nume adriana results) [facility] Glomerular Filtration Rate > 60.0 Normal (applies to n on-numeric results) [facility] ([facility] <content>Units are mL/min/1.73 m2</content>
<content></content>
<content>Chronic Kidney Disease Staging per NKF:</content>
<content></content>
<content>Stage I & II GFR >=60 Normal to Mildly Decreased</content>
<content>Stage III GFR 30- 59 Moderately Decreased</content>
<content>Stage IV GFR 15-29 Severely Decreased</content>
<content>Stage V GFR <15 Very Little GFR Left</content>
<content>ESRD GFR <15 on TEAM CDL DRIVER</content>
<content></content> Creatinine For GFR 0.65 mg/dL 0.55-1.30 Normal (applies to non -numeric results) [facility] ([facility] Sodium Level 142 meq/L 136-145 Normal (applies to non-numeric res ults) [facility] ([facility] Potassium Serum 4.0 meq/L 3.5-5.1 Normal (applies to non-numeric results) [facility] ([facility] Chloride Level 107 meq/L 98-107 Normal (applies to non-numeric r esults) [facility] ([facility] Anion Gap 6 meq/L 8-16 Below low normal [facility] ( [facility] Calcium Level 9.2 mg/dL 8.8-10.2 Normal (applies to non-numeric re sults) [facility] ([facility] Carbon Dioxide Level 29 meq/L 21-32 Normal (applies to non-num maegan results) [facility] ([facility] Bilirubin,Total 0.3 mg/dL 0.2-1.0 Normal (applies to non-numeric results) [facility] ([facility] Alt/SGPT 9 U/L 12-78 Below low normal [facility] ( [facility] Ast/Sgot 20 U/L 7-37 Normal (applies to non-numeric resul ts) [facility] ([facility] Alkaline Phosphatase 77 U/L 45-117 Normal (applies to non-num maegan results) [facility] ([facility] Total Protein 6.9 GM/DL 6.4-8.2 Normal (applies to non-numeric re sults) [facility] ([facility] Albumin/Globulin Ratio 1.09 1.00-1.93 Normal (applies to non-numeric results) [facility] ([facility] Albumin 3.6 GM/DL 3.2-5.2 Normal (applies to non-numeric resul ts) [facility] ([facility] ID Date Data Source [id number] 06/12/2019 03:35:00 PM EST [facility] ([facility] Name Value Range Interpretation Code Description Data Salome rce(s) Supporting Document(s) Neutrophils % 55.8 % 36.0-66.0 Normal (applies to non-numeric re sults) [facility] ([facility] Lymph % 30.7 % 24.0-44.0 Normal (applies to non-numeric resul ts) [facility] ([facility] Eos % 2.9 % 0.0-3.0 Normal (applies to non-numeric resul ts) [facility] ([facility] Pepin % 9.2 % 0.0-5.0 Above high normal [facility] ([facility] Baso % 1.2 % 0.0-1.0 Above high normal [facility] ([facility] Immature Granulocyte % 0.2 % 0-3.0 Normal (applies to non-n umeric results) [facility] ([facility] Lymph # 1.6 10 1.5-5.0 Normal (applies to non-numeric resul ts) [facility] ([facility] Pepin # 0.5 10 0.0-0.8 Normal (applies to non-numeric resul ts) [facility] ([facility] Neutrophils # 2.9 10 1.5-8.5 Normal (applies to non-numeric re sults) [facility] ([facility] Eos # 0.2 10 0.0-0.5 Normal (applies to non-numeric resul ts) [facility] ([facility] Baso # 0.1 10 0.0-0.2 Normal (applies to non-numeric resul ts) [facility] ([facility] ID Date Data Source [id number] 06/12/2019 03:35:00 PM EST [facility] ([facility] Name Value Range Interpretation Code Description Data Salome rce(s) Supporting Document(s) White Blood Count 5.1 10 4.0-10.0 Normal (applies to non-numeri c results) [facility] ([facility] Hemoglobin 11.8 g/dL 12.0-15.5 Below low normal [facility] ( [facility] Hematocrit 37.8 % 36.0-47.0 Normal (applies to non-numeric resul ts) [facility] ([facility] Red Blood Count 4.09 10 4.00-5.40 Normal (applies to non-numeric results) [facility] ([facility] Mean Corpuscular Hemoglobin 28.9 pg 27.0-33.0 Norm al (applies to non-numeric results) [facility] ([facility] ) Mean Corpuscular HGB Conc 31.2 g/dL 32.0-36.5 Below low normal [facility] ([facility] Mean Corpuscular Volume 92.4 fl 80.0-96.0 Normal ( applies to non-numeric results) [facility] ([facility] ) Platelet Count, Automated 242 10 150-450 Normal (applies to non-numeric results) [facility] ([facility] ) Nucleated Red Blood Cell % 0.0 % 0-0 Normal (applies to n on-numeric results) [facility] ([facility] Red Cell Distribution Width 13.2 % 11.5-14.5 Norm al (applies to non-numeric results) [facility] Procedure Social History Code Duration Value Status Description Data Source(s ) Alcohol intake 03/06/2020 12:00:00 AM EDT Current drinker of al cohol (finding) completed Current drinker of alcohol (finding) [facility] Tobacco use and exposure 03/06/2020 12:00:00 AM EDT Never used co mpleted Never used [facility] Smoking 03/06/2020 12:00:00 AM EDT Former smoker completed Former smoker [facility] Vital Signs ID Date Data Source UNK Name Value Range Interpretation Code Description Data Source(s) Body surface area Derived from formula 1.84 m2 1.84 m2 [facility] ([facility]) Body weight 76.318 kg 76.318 kg [facility] ([facility]) [place] body weight 125 [lb_av] 125 [lb_av] [facility] Body mass index (BMI) [Ratio] 28.0 kg/m2 28.0 k g/m2 [facility] ([facility]) Body weight 168.25 [lb_av] 168.25 [lb_av] [facility] Body height 65 [in_i] 65 [in_i] [facility] ([facility]) 5'5" Heart rate 68 /min 68 /min [facility] ([facility]) Diastolic blood pressure 75 mm[Hg] 75 mm[Hg] [facility] ([facility]) Systolic blood pressure 116 mm[Hg] 116 mm[Hg] [facility] Oxygen saturation in Arterial blood by Pulse oximetry 97 % 97 % [facility] ([facility] Body mass index (BMI) [Ratio] 28.1 kg/m2 28.1 k g/m2 [facility] ([facility] [place] body weight 130 [lb_av] 130 [lb_av] [facility] ([facility] Body weight 174.00 [lb_av] 174.00 [lb_av] [facility] ([facility] Body height 66 [in_i] 66 [in_i] [facility] 5'6" Respiratory rate 16 /min 16 /min [facility] ( [facility] Heart rate 76 /min 76 /min [facility] ([facility] Body temperature 98.5 [degF] 98.5 [degF] [facility] ([facility] Diastolic blood pressure 82 mm[Hg] 82 mm[Hg] [facility] ([facility] Systolic blood pressure 120 mm[Hg] 120 mm[Hg] M [facility] ([facility] Oxygen saturation in Arterial blood by Pulse oximetry 98 % 98 % [facility] ([facility] Body mass index (BMI) [Ratio] 29.0 kg/m2 29.0 k g/m2 [facility] ([facility] [place] body weight 130 [lb_av] 130 [lb_av] [facility] ([facility] Body weight 180.00 [lb_av] 180.00 [lb_av] [facility] ([facility] Body height 66 [in_i] 66 [in_i] [facility] 5'6" Respiratory rate 16 /min 16 /min [facility] ( [facility] Heart rate 85 /min 85 /min [facility] ([facility] Body temperature 98.7 [degF] 98.7 [degF] [facility] ([facility] Diastolic blood pressure 62 mm[Hg] 62 mm[Hg] [facility] ([facility] Systolic blood pressure 102 mm[Hg] 102 mm[Hg] M [facility] ([facility] Oxygen saturation in Arterial blood by Pulse oximetry 98 % 98 % [facility] ([facility] Body mass index (BMI) [Ratio] 29.2 kg/m2 29.2 k g/m2 [facility] ([facility] [place] body weight 130 [lb_av] 130 [lb_av] [facility] ([facility] Body weight 181.00 [lb_av] 181.00 [lb_av] [facility] ([facility] Body height 66 [in_i] 66 [in_i] [facility] 5'6" Respiratory rate 16 /min 16 /min [facility] ( [facility] Heart rate 89 /min 89 /min [facility] ([facility] Body temperature 98.4 [degF] 98.4 [degF] [facility] ([facility] Diastolic blood pressure 62 mm[Hg] 62 mm[Hg] [facility] ([facility] Systolic blood pressure 124 mm[Hg] 124 mm[Hg] M [facility] ([facility] Oxygen saturation in Arterial blood by Pulse oximetry 95 % 95 % [facility] ([facility] Body mass index (BMI) [Ratio] 29.7 kg/m2 29.7 k g/m2 [facility] ([facility] [place] body weight 130 [lb_av] 130 [lb_av] [facility] ([facility] Body weight 184.00 [lb_av] 184.00 [lb_av] [facility] ([facility] Body height 66 [in_i] 66 [in_i] [facility] ([facility] 5'6" Respiratory rate 16 /min 16 /min [facility] ( [facility] Heart rate 68 /min 68 /min [facility] ([facility] Body temperature 98.4 [degF] 98.4 [degF] [facility] ([facility] Diastolic blood pressure 66 mm[Hg] 66 mm[Hg] [facility] ([facility] Systolic blood pressure 120 mm[Hg] 120 mm[Hg] M ED[facility] ([facility] ID Date Data Source [id number] 01/26/2020 01:39:19 PM EDT [facility] Name Value Range Interpretation Code Description Data Source(s) WEIGHT RECORDED 185 lb 185 lb [facility] Body height Measured 65 in 65 in [facility]
[2020-08-05] MEDS ORDERED: propofoL 200 MG/20 ML VIAL As Ordered ONE (10:46)
[2020-08-05] MEDS ORDERED: LIDOCAINE 2% 100MG/5ML SDV (FOR ANES.) As Ordered ONE (10:46)
[2020-08-05] MEDS ORDERED: fentaNYL 100 MCG/2 ML INJECTION (J3010) As Ordered ONE (12:09)
--- NOTE | 2020-08-05 12:29 | ROOR ---
Patient Name: Elo Velasquez Procedure Date: 08/05/2020 12:13 PM Date of : 1950 Age: 69 Room: [facility] Gender: Female Note Status: Finalized Procedure: Upper GI endoscopy Indications: Epigastric abdominal pain Providers: Yahir Muñoz Jr, MD Referring MD: QUINCY LAZCANO Requesting Provider: Medicines: Propofol per Anesthesia Complications: No immediate complications. Procedure: Pre-Anesthesia Assessment: - Prior to the procedure, a History and Physical was performed, and patient medications and allergies were reviewed. The patient is competent. The risks and benefits of the procedure and the sedation options and risks were discussed with the patient. All questions were answered and informed consent was obtained. Patient identification and proposed procedure were verified by the physician and the nurse in the pre-procedure area and in the procedure room. Mental Status Examination: alert and oriented. Airway Examination: normal oropharyngeal airway and neck mobility. Respiratory Examination: clear to auscultation. CV Examination: normal. ASA Grade Assessment: II - A patient with mild systemic disease. After reviewing the risks and benefits, the patient was deemed in satisfactory condition to undergo the procedure. The anesthesia plan was to use moderate sedation / analgesia (conscious sedation). Immediately prior to administration of medications, the patient was re-assessed for adequacy to receive sedatives. The heart rate, respiratory rate, oxygen saturations, blood pressure, adequacy of pulmonary ventilation, and response to care were monitored throughout the procedure. The physical status of the patient was re-assessed after the procedure. The Endoscope was introduced through the mouth, and advanced to the jejunum. The upper GI endoscopy was accomplished without difficulty. The patient tolerated the procedure well. Findings: The upper third of the esophagus, middle third of the esophagus and lower third of the esophagus were normal. Evidence of a gastric bypass was found. A gastric pouch with a normal size was found. The staple line appeared intact. The gastrojejunal anastomosis was characterized by edema, erythema and friable mucosa. This was traversed. The uctyw-ia-yuvddxb limb was characterized by edema, erythema and friable mucosa. The examined jejunum was normal. However the blind end was 17 cm long and the anastomosis was on the side of the stomach. One benign-appearing, intrinsic mild stenosis was found at the gastroesophageal junction. The stenosis was traversed. Impression: - Normal upper third of esophagus, middle third of esophagus and lower third of esophagus. - Gastric bypass with a normal-sized pouch and intact staple line. Gastrojejunal anastomosis characterized by edema, erythema and friable mucosa. - Normal examined jejunum. - No specimens collected. Recommendation: - Discharge patient to home (ambulatory). - Return to my office at appointment to be scheduled. Procedure Code(s): --- Professional --- 36529, Esophagogastroduodenoscopy, flexible, transoral; diagnostic, including collection of specimen(s) by brushing or washing, when performed (separate procedure) Diagnosis Code(s): --- Professional --- Z98.84, Bariatric surgery status R10.13, Epigastric pain CPT copyright 2019 [employer]. All rights reserved. The codes documented in this report are preliminary and upon directional survey drafter review may be revised to meet current compliance requirements. Yahir Muñoz MD Yahir Muñoz Jr, MD 08/05/2020 12:28:48 PM Electronically signed by Yahir Muñoz Jr, MD Number of Addenda: 0 Note Initiated On: 08/05/2020 12:13 PM Estimated Blood Loss: Estimated blood loss: none. Estimated blood loss: none.
[2020-08-05 12:50] VITALS: BP 118/59
== END 2020-08-05 13:20 | disposition home or self-care (01) ==
LOC: M OPP 10:31
PROVIDERS: ATTEND Surgery
DX: R10.13 Epigastric pain (principal); K44.9 Diaphragmatic hernia without obstruction or gangrene; Z98.84 Bariatric surgery status; K58.9 Irritable bowel syndrome, unspecified; E53.8 Deficiency of other specified B group vitamins; M19.90 Unspecified osteoarthritis, unspecified site; M79.7 Fibromyalgia; G62.9 Polyneuropathy, unspecified; K21.9 Gastro-esophageal reflux disease without esophagitis; Z85.048 Personal history of other malignant neoplasm of rectum, rectosigmoid junction, and anus; Z87.891 Personal history of nicotine dependence; Z88.1 Allergy status to other antibiotic agents; Z88.2 Allergy status to sulfonamides; Z79.899 Other long term (current) drug therapy
CPT/HCPCS: 43235; J3010

== ENCOUNTER → 2020-09-01 | Outpatient (CLI) | payer MEDICARE, OTHER ==
[~2020-09-01] MED LIST changes: -NS 1,000 ML IV ONE
--- NOTE | 2020-09-01 07:47 | REP ---
INDICATION: RIGHT UPPER QUAD, PAIN, BARIATRIC SURGERY STATUS. COMPARISON: Abdomen/pelvis CT dated 10/12/2011. TECHNIQUE: Multiple sonographic images of the abdominal right upper quadrant. FINDINGS: The gallbladder is distended measuring 10 point 0 x 4.3 x 5.6 cm. There is no gallbladder wall thickening or pericholecystic fluid. There is no cholelithiasis. There is no intrahepatic or extrahepatic biliary duct dilatation. The common biliary duct measures 5.3 mm in diameter, upper normal. The hepatic parenchyma is homogeneous. There are no hepatic masses or cysts. The right kidney measures 10.8 x 4.4 x 4.7 cm and is normal size. There is no right renal solid or cystic mass. There is no calculus or hydronephrosis. There is no aortic aneurysm. There is no right upper quadrant free fluid. IMPRESSION: Distended gallbladder without cholelithiasis or ultrasound evidence of acute cholecystitis. No biliary duct dilatation. No right upper quadrant free fluid. <Electronically signed by Thaddeus Grider > 09/01/20 [id number]
== END ==
LOC: M RAD 06:45
PROVIDERS: ATTEND Surgery
DX: R10.11 Right upper quadrant pain (principal); Z98.84 Bariatric surgery status

== ENCOUNTER → 2020-10-20 | Outpatient (CLI) | payer MEDICARE, OTHER ==
[2020-10-20 18:00] LABS: BASO % 0.5 % (0.0-1.0); EOS # 0.1 10^3/uL (0.0-0.5); EOS % 1.9 % (0.0-3.0); HEMATOCRIT 37.5 % (36.0-47.0); HEMOGLOBIN 12.2 g/dl (12.0-15.5); LYMPH # 1.8 10^3/uL (1.5-5.0); LYMPH % 31.8 % (24.0-44.0); MEAN CORPUSCULAR HEMOGLOBIN 30.5 pg (27.0-33.0); MEAN CORPUSCULAR HGB CONC 32.5 g/dl (32.0-36.5); MEAN CORPUSCULAR VOLUME 93.8 fl (80.0-96.0); MONO # 0.5 10^3/uL (0.0-0.8); MONO % 9.4 % (2.0-8.0); NEUTROPHILS # 3.2 10^3/uL (1.5-8.5); NEUTROPHILS % 56.2 % (36.0-66.0); PLATELET COUNT, AUTOMATED 222 10^3/uL (150-450); WHITE BLOOD COUNT 5.8 10^3/uL (4.0-10.0)
[2020-10-20 18:15] LABS: ALBUMIN 3.6 GM/DL (3.2-5.2); ALT/SGPT 10 U/L (12-78); BILIRUBIN,TOTAL 0.2 MG/DL (0.2-1.0); BLOOD UREA NITROGEN 14 MG/DL (7-18); CALCIUM LEVEL 9.5 MG/DL (8.8-10.2); CARBON DIOXIDE LEVEL 30 MEQ/L (21-32); CHLORIDE LEVEL 107 MEQ/L (98-107); CREATININE FOR GFR 0.46 MG/DL (0.55-1.30); GLOMERULAR FILTRATION RATE > 60.0 (>39); GLUCOSE, FASTING 89 MG/DL (70-100); POTASSIUM SERUM 3.7 MEQ/L (3.5-5.1); SODIUM LEVEL 142 MEQ/L (136-145); TOTAL PROTEIN 6.1 GM/DL (6.4-8.2)
== END ==
LOC: M LAB 17:12
PROVIDERS: ATTEND Internal Medicine
DX: C18.9 Malignant neoplasm of colon, unspecified (principal)

== ENCOUNTER → 2020-12-23 | Outpatient (REF) | payer MEDICARE, OTHER ==
[2020-12-23 14:08] LABS: CLOSTRIDIUM DIFFICILE PCR NEGATIVE (NEGATIVE)
== END ==
LOC: M LAB REF 12:32
PROVIDERS: ATTEND Surgery Trauma Surgery
DX: R19.7 Diarrhea, unspecified (principal)

== ENCOUNTER → 2021-09-09 | Outpatient (CLI) | payer MEDICARE, OTHER ==
[~2021-09-09] MED LIST changes: -FLUC150T PO; +FLUC150T9 PO
== END ==
LOC: M RAD 16:52
PROVIDERS: ATTEND Physician Assistant
DX: R06.02 Shortness of breath (principal); R91.8 Other nonspecific abnormal finding of lung field

== ENCOUNTER → 2023-02-06 | Outpatient (CLI) | payer MEDICARE, OTHER ==
[~2023-02-06] MED LIST changes: +LIDO15SO PO; +LIDO2SOBTL PO; -LIDO2SOL17 PO; -LIDO2SOL9 PO
== END ==
LOC: M WHC 09:40
PROVIDERS: ATTEND Nurse Practitioner Family
DX: Z12.31 Encounter for screening mammogram for malignant neoplasm of breast (principal)

== ENCOUNTER → 2023-02-06 | Outpatient (REF) | payer MEDICARE, OTHER | LOC: M SFHCWAGY 13:11 | PROVIDERS: ATTEND Nurse Practitioner Family | DX: R10.2 Pelvic and perineal pain (principal) ==

== ENCOUNTER → 2023-02-16 | Outpatient (CLI) | payer MEDICARE, OTHER | LOC: M WHC 08:52 | PROVIDERS: ATTEND Nurse Practitioner Family | DX: R10.2 Pelvic and perineal pain (principal) ==

== ENCOUNTER 2023-03-22 10:27 | Day surgery (SDC) | payer MEDICARE, OTHER ==
[~2023-03-22] VITALS: Ht 165.1 cm; Wt 74.5 kg
[~2023-03-22 10:27] MED LIST changes: +BIOT10009 PO; +ESTR0.1C5; +NS 1,000 ML IV ONE; +OMEP40CA5; +PREV15TA2 PO; +SIME125T PO
[2023-03-22] MEDS ORDERED: AMOX875T PO (11:13)
[2023-03-22] MEDS ORDERED: FLAG375C PO (11:13)
[2023-03-22] MEDS ORDERED: LIDOCAINE 2% 100MG/5ML SDV (FOR ANES.) As Ordered ONE (11:34)
[2023-03-22] MEDS ORDERED: fentaNYL 100 MCG/2 ML INJECTION As Ordered ONE (11:34)
[2023-03-22] MEDS ORDERED: propofoL 500 MG/50 ML VIAL As Ordered ONE (11:34)
[2023-03-22 11:56] VITALS: TEMP 97.3
[2023-03-22 12:20] VITALS: BP 106/57; O2SAT 97
== END 2023-03-22 12:34 | disposition home or self-care (01) ==
LOC: M OPP 10:27
PROVIDERS: ATTEND Surgery
DX: Z12.11 Encounter for screening for malignant neoplasm of colon (principal); Z85.038 Personal history of other malignant neoplasm of large intestine; K44.9 Diaphragmatic hernia without obstruction or gangrene; Z98.84 Bariatric surgery status; K22.2 Esophageal obstruction; R13.10 Dysphagia, unspecified; Z79.818 Long term (current) use of other agents affecting estrogen receptors and estrogen levels; Z79.83 Long term (current) use of bisphosphonates; Z79.899 Other long term (current) drug therapy
CPT/HCPCS: 43235; G0105; J3010

== ENCOUNTER 2023-12-03 11:14 | Day surgery (SDC) | payer MEDICARE, OTHER ==
[~2023-12-03] VITALS: Ht 165.1 cm; Wt 78.0 kg
[~2023-12-03 11:14] MED LIST changes: +AMOX875T PO; +B-12100010 PO; +FLAG375C PO; +LIDO100S29 PO; -LIDO15SO PO; +LIDO15SO8 PO; -LIDO2SOBTL PO; +LR 1,000 ML IV SCH; -NS 1,000 ML IV ONE; -OMEP40CA5; +OMEP40CA5 PO
[2023-12-03] MEDS: TETRACAINE 0.5% OPHTH SOLN 4ML OS SCH (12:25)
[2023-12-03] MEDS: PHENYLEPHRINE 2.5% OPHTH SOL 2ML OS SCH (12:25)
[2023-12-03] MEDS: FLURBIPROFEN 0.03% OPHTH SOLN 2.5 ML OS SCH (12:25)
[2023-12-03] MEDS: ATROPINE SULFATE 1% OPHTH SOLN 2ML BTL OS SCH (12:25)
[2023-12-03] MEDS ORDERED: MIDAZOLAM INJ 2MG/2ML VIAL As Ordered ONE (13:25)
[2023-12-03] MEDS: CEFUROXIME 1MG/0.1ML INTRACAMERAL INJ As Ordered ONE (13:39)
[2023-12-03] MEDS: LIDOCAINE 1% SDV 5ML VIAL As Ordered ONE (13:39)
[2023-12-03 13:58] VITALS: BP 137/63; TEMP 97.3; O2SAT 97
== END 2023-12-03 14:23 | disposition home or self-care (01) ==
LOC: M SDC 11:14
PROVIDERS: ATTEND Ophthalmology
DX: H25.12 Age-related nuclear cataract, left eye (principal); K58.9 Irritable bowel syndrome, unspecified; R32 Unspecified urinary incontinence; Z87.19 Personal history of other diseases of the digestive system; Z85.038 Personal history of other malignant neoplasm of large intestine; Z79.899 Other long term (current) drug therapy; K21.9 Gastro-esophageal reflux disease without esophagitis; Z88.2 Allergy status to sulfonamides; Z88.1 Allergy status to other antibiotic agents; Z90.49 Acquired absence of other specified parts of digestive tract; Z98.84 Bariatric surgery status
CPT/HCPCS: 66984; J0697; J2250; V2632

== ENCOUNTER → 2024-09-12 | Outpatient (CLI) | payer MEDICARE, OTHER ==
[~2024-09-12] MED LIST changes: -LR 1,000 ML IV SCH
== END ==
LOC: M RAD 10:49
PROVIDERS: ATTEND Physician Assistant
DX: R31.9 Hematuria, unspecified (principal)

== ENCOUNTER → 2025-02-27 | Outpatient (CLI) | payer MEDICARE, OTHER ==
[2025-02-27 11:24] LABS: PLATELET COUNT, AUTOMATED 282 10^3/uL (150-450)
[2025-02-27 11:52] LABS: ALT/SGPT < 9 U/L (7.0-40); AST/SGOT 17 U/L (<34); CALCIUM LEVEL 9.5 MG/DL (8.3-10.6); CARBON DIOXIDE LEVEL 31 MMOL/L (20-31); CHLORIDE LEVEL 104 MMOL/L (98-107); CHOLESTEROL LEVEL 215 MG/DL (<200); CHOLESTEROL RISK RATIO 2.47 (<5); CREATININE FOR GFR 0.57 MG/DL (0.55-1.30); GLOMERULAR FILTRATION RATE > 90.0 (>39); LDL CHOLESTEROL 111.1 MG/DL (<100); NON-HDL-C 128.1 MG/DL; POTASSIUM SERUM 4.4 MMOL/L (3.5-5.1); SODIUM LEVEL 142 MMOL/L (136-145); TRIGLYCERIDES LEVEL 85 MG/DL (<150)
[2025-02-27 11:53] LABS: TOTAL 25(OH) VITAMIN D 34.4 NG/ML (20.0-100.0)
== END ==
LOC: M PLALAB 09:17
PROVIDERS: ATTEND Physician Assistant
DX: E78.2 Mixed hyperlipidemia (principal); E55.9 Vitamin D deficiency, unspecified